=== PATIENT | male | born 1930 | race Caucasian/White ===

== ENCOUNTER 2016-09-22 11:12 | Inpatient (IN) ==
[2016-09-22] MEDS ORDERED: ATROPINE SULFATE PFS IVP PRN (11:36)
[2016-09-22] MEDS ORDERED: VISTARIL INJ IM PRN (11:36)
[2016-09-22] MEDS ORDERED: NITROSTAT SL PRN (11:36)
[2016-09-22] MEDS ORDERED: MORPHINE 4 MG/ML SYRINGE IVP PRN (11:36)
[2016-09-22] MEDS ORDERED: TYLENOL PO PRN (11:36)
[2016-09-22] MEDS ORDERED: NON-FORMULARY MEDICATION (Cetirizine Hcl [Zyrtec] 10 MG) PO PRN ×22 (11:48)
[2016-09-22 11:57] VITALS: BMI 3854.8
[2016-09-22] MEDS ORDERED: ZYRTEC PO PRN (12:27)
[2016-09-22 12:34] LABS: BASOPHILS % (AUTO) 0.4 % (0.0-3.0); EOSINOPHILS # (AUTO) 0.2 K/ul (0.0-0.7); EOSINOPHILS % (AUTO) 3.2 % (0.0-7.0); HEMATOCRIT 38.6 % (42.0-52.0); HEMOGLOBIN 13.4 g/dl (14.0-18.0); IMMATURE GRANULOCYTE % (AUTO) 0.3 % (0.0-5.0); LYMPHOCYTES # (AUTO) 2.6 K/uL (0.60-3.4); LYMPHOCYTES % (AUTO) 35.6 (10.0-50.0); MEAN CORPUSCULAR HEMOGLOBIN 29.3 pg (27.0-31.0); MEAN CORPUSCULAR HGB CONC 34.7 (31.8-35.4); MEAN CORPUSCULAR VOLUME 84.5 fl (80.0-94.0); MONOCYTES # (AUTO) 0.6 K/uL (0.4-2.0); MONOCYTES % (AUTO) 8.7 (0-10); NEUTROPHILS # (AUTO) 3.7 K/ul (2.0-6.9); NEUTROPHILS % (AUTO) 51.8; PLATELET COUNT 198 10^3/uL (140-440); RED BLOOD COUNT 4.57 10^6/ul (4.70-6.10); WHITE BLOOD COUNT 7.16 K/ul (4.2-10.2)
[2016-09-22 12:52] LABS: ALANINE AMINOTRANSFERASE 19 U/L (12-78); ALBUMIN/GLOBULIN RATIO 1.21; ALKALINE PHOSPHATASE 60 U/L (56-119); ANION GAP 12.3; ASPARTATE AMINO TRANSFERASE 17 U/L (15-37); BILIRUBIN,TOTAL 1.19 mg/dL (0.00-1.20); BLOOD UREA NITROGEN 20 mg/dL (7-18); BUN/CREATININE RATIO 18.69; CALCIUM 9.7 mg/dL (8.2-10.2); CARBON DIOXIDE 24 mmol/L (23-31); CHLORIDE 106 mmol/L (98-107); CREATINE KINASE 73 U/L; CREATININE 1.07 mg/dL (0.60-1.10); GLUCOSE 152 mg/dL (82-115); MYOGLOBIN 44 ng/ml; POTASSIUM 4.3 mmol/L (3.5-5.1); SODIUM 138 mmol/L (136-145); TOTAL PROTEIN 7.3 g/dL (5.8-8.1)
--- NOTE | 2016-09-22 15:17 | DI ---
EXAM: Chest one view, frontal view only. HISTORY: Chronic obstructive pulmonary disease. COMPARISON: 02/14/2012. FINDINGS: Heart size is at the upper limits normal. Atherosclerotic calcifications are present. T here is mild haziness at both lung bases. Upper lungs are clear. No large pleural effusion or pneu mothorax identified. Osseous structures are intact. IMPRESSION: Mild bibasilar atelectasis.
--- NOTE | 2016-09-22 15:41 | US ---
EXAM: Ultrasound bilateral carotid duplex HISTORY: Mental status changes and memory loss COMPARISON: MRI brain same day TECHNIQUE: Sonographic and color Doppler evaluation of the carotids were performed. FINDINGS: The right carotid is patent and tortuous in appearance with scattered moderate atherosclerotic plaqu e visualized. Ultrasound demonstrates atherosclerotic disease. Suggestive of approximately 66% narr owing. The right ICA peak systolic velocity measures 80 cm/sec which is normal. The ICA / CCA peak systolic velocity ratio is 1.4 and ICA end-diastolic velocity is 20 cm/sec. The left carotid is mildly tortuous in appearance with scattered atherosclerotic plaque visualized. The left ICA peak systolic velocity measures 70 cm/sec which is normal. The left ICA / CCA peak systolic velocity ratio is 1.0 and ICA end-diastolic velocity is 20 cm/sec. Vertebral arteries demonstrate antegrade flow bilaterally. IMPRESSION: Right ICA atherosclerotic disease with sonographic evaluation demonstrating approximately 66% narrow ing with no elevated Doppler flow to suggest hemodynamically significant stenosis. Left ICA with atherosclerotic disease and no sonographic or Doppler evidence of stenosis.
--- NOTE | 2016-09-22 16:17 | MRI ---
EXAM: Brain MRI with and without contrast. HISTORY: Mental status change. COMPARISON: Head CT 03/29/2069 carotid artery duplex ultrasound 09/22/2016. TECHNIQUE: Multiplanar, multisequence MR images were acquired of the brain before and after adminis tration of intravenous contrast. FINDINGS: The midline structures are central and the craniocervical junction is unremarkable. The ventricles are normal in size. There is mild widening of the subarachnoid space around both frontal lobes at the convexity. There is mild and moderate widening of some sulci and these findings are c ompatible with mild diffuse cerebral volume loss. The brain parenchyma has a small acute infarct with diffusion restriction and bright T2 signal in th e anteromedial right thalamus. Small T2 hyperintensities are present in the supratentorial white ma tter, left thalamus and kandis consistent with moderate leukoencephalopathy. There is a chronic lacuna in the right anterior external capsule and extensive dilated perivascular spaces are present in bot h basal ganglia. There is no abnormal dark gradient echo signal. After administration of gadoliniu m, no enhancing lesions are identified. The corpus callosum is normal in size and configuration. T he pituitary gland is normal in size and has homogeneous contrast enhancement. The infundibulum is midline. There are no intraorbital masses. There has been previous lens surgery bilaterally. Paranasal sinuses, middle ears and the mastoid air cells are unremarkable. No abnormal contrast enh ancement is present in the internal auditory canals or labyrinthine structures. Flow voids are present in the major intracranial arteries. There is dolichoectasia of the cavernous segments of both internal carotid arteries. Dural venous sinuses are patent. IMPRESSION: 1. Small acute right thalamic infarct. 2. Mild diffuse cerebral volume loss and moderate chronic ischemic small vessel disease. 3. Chronic lacuna right external capsule. Critical results called to [facility]ay nurse at 1608 hours.
[2016-09-22 16:49] LABS: ADD URINE MICROSCOPIC NO; BILIRUBIN,URINE Negative (NEGATIVE); KETONES,URINE Negative (NEGATIVE); LEUKOCYTE ESTERASE ,URINE Negative (NEGATIVE); NITRITE,URINE Negative (NEGATIVE); PROTEIN,URINE Negative (NEGATIVE); URINE, BLOOD Negative (NEGATIVE)
[2016-09-22] MEDS: LOVENOX SUBCUT SCH ×2 (16:49→20:51)
[2016-09-22] MEDS: GLUCOPHAGE PO SCH ×2 (17:03→17:20)
[2016-09-22 20:29] LABS: CREATINE KINASE 65 U/L; MYOGLOBIN 52 ng/ml
[2016-09-22] MEDS: LOPRESSOR PO SCH (20:50)
[2016-09-22] MEDS: PROCARDIA XL PO SCH (20:50)
[2016-09-22] MEDS ORDERED: NON-FORMULARY MEDICATION (Metoprolol Tartrate [Metoprolol Tartrate] 100 MG) PO SCH (21:00)
[2016-09-23 07:30] LABS: BASOPHILS % (AUTO) 0.6 % (0.0-3.0); EOSINOPHILS # (AUTO) 0.3 K/ul (0.0-0.7); EOSINOPHILS % (AUTO) 4.3 % (0.0-7.0); HEMATOCRIT 37.3 % (42.0-52.0); IMMATURE GRANULOCYTE % (AUTO) 0.2 % (0.0-5.0); LYMPHOCYTES # (AUTO) 2.6 K/uL (0.60-3.4); MEAN CORPUSCULAR HEMOGLOBIN 29.3 pg (27.0-31.0); MEAN CORPUSCULAR HGB CONC 34.9 (31.8-35.4); MEAN CORPUSCULAR VOLUME 84.2 fl (80.0-94.0); MONOCYTES # (AUTO) 0.6 K/uL (0.4-2.0); MONOCYTES % (AUTO) 8.8 (0-10); NEUTROPHILS # (AUTO) 3.1 K/ul (2.0-6.9); NEUTROPHILS % (AUTO) 47.1; PLATELET COUNT 177 10^3/uL (140-440); RED BLOOD COUNT 4.43 10^6/ul (4.70-6.10); WHITE BLOOD COUNT 6.56 K/ul (4.2-10.2)
[2016-09-23 08:13] LABS: ALBUMIN 3.6 g/dL (3.4-5.0); ALBUMIN/GLOBULIN RATIO 1.29; ANION GAP 12.8; BILIRUBIN,TOTAL 1.3 mg/dL (0.00-1.20); BUN/CREATININE RATIO 14.85; CALCIUM 9.2 mg/dL (8.2-10.2); CREATININE 1.01 mg/dL (0.60-1.10); POTASSIUM 3.8 mmol/L (3.5-5.1); TOTAL PROTEIN 6.4 g/dL (5.8-8.1)
[2016-09-23] MEDS: GLUCOPHAGE PO SCH ×2 (08:15→17:42)
[2016-09-23] MEDS: ASPIRIN EC PO SCH (08:20)
[2016-09-23] MEDS ORDERED: NON-FORMULARY MEDICATION (Losartan Potassium [Cozaar] 100 MG) PO SCH ×22 (09:00)
[2016-09-23] MEDS ORDERED: NON-FORMULARY MEDICATION (Multivitamin [Multi-Vitamin Daily] 1 EACH) PO SCH ×22 (09:00)
[2016-09-23] MEDS: COZAAR PO SCH (09:25)
[2016-09-23] MEDS: PLAVIX PO SCH (09:25)
[2016-09-23] MEDS: PROCARDIA XL PO SCH ×2 (09:26→20:15)
[2016-09-23] MEDS: LOPRESSOR PO SCH ×2 (09:26→20:14)
[2016-09-23] MEDS: MULTIVITAMIN PO SCH (09:26)
[2016-09-23] MEDS: PROSCAR PO SCH (09:26)
[2016-09-23] MEDS: ZOCOR PO SCH (09:27)
[2016-09-23] MEDS: LOVENOX SUBCUT SCH ×2 (09:30→20:16)
[2016-09-23] MEDS: LINACLOTIDE 290 MG PO SCH ×2 (09:44→15:37)
[2016-09-24 07:26] LABS: BASOPHILS # (AUTO) 0.1 K/uL (0-0.2); BASOPHILS % (AUTO) 0.8 % (0.0-3.0); EOSINOPHILS # (AUTO) 0.3 K/ul (0.0-0.7); EOSINOPHILS % (AUTO) 4.3 % (0.0-7.0); HEMATOCRIT 37.5 % (42.0-52.0); IMMATURE GRANULOCYTE % (AUTO) 0.3 % (0.0-5.0); LYMPHOCYTES # (AUTO) 2.8 K/uL (0.60-3.4); LYMPHOCYTES % (AUTO) 42.8 (10.0-50.0); MEAN CORPUSCULAR HEMOGLOBIN 29.1 pg (27.0-31.0); MEAN CORPUSCULAR HGB CONC 34.7 (31.8-35.4); MEAN CORPUSCULAR VOLUME 83.9 fl (80.0-94.0); MONOCYTES # (AUTO) 0.7 K/uL (0.4-2.0); MONOCYTES % (AUTO) 10.1 (0-10); NEUTROPHILS # (AUTO) 2.7 K/ul (2.0-6.9); NEUTROPHILS % (AUTO) 41.7; PLATELET COUNT 180 10^3/uL (140-440); RED BLOOD COUNT 4.47 10^6/ul (4.70-6.10); WHITE BLOOD COUNT 6.54 K/ul (4.2-10.2)
[2016-09-24 08:05] LABS: ALBUMIN 3.6 g/dL (3.4-5.0); ALBUMIN/GLOBULIN RATIO 1.33; ANION GAP 12.7; BILIRUBIN,TOTAL 1.22 mg/dL (0.00-1.20); BUN/CREATININE RATIO 16.51; CREATININE 1.09 mg/dL (0.60-1.10); POTASSIUM 3.7 mmol/L (3.5-5.1); TOTAL PROTEIN 6.3 g/dL (5.8-8.1)
[2016-09-24] MEDS: PLAVIX PO SCH (08:54)
[2016-09-24] MEDS: MULTIVITAMIN PO SCH (08:54)
[2016-09-24] MEDS: ASPIRIN EC PO SCH (08:54)
[2016-09-24] MEDS: ZOCOR PO SCH (08:55)
[2016-09-24] MEDS: GLUCOPHAGE PO SCH ×2 (08:56→17:05)
[2016-09-24] MEDS: COZAAR PO SCH (08:57)
[2016-09-24] MEDS: PROSCAR PO SCH (08:57)
[2016-09-24] MEDS: LOPRESSOR PO SCH ×2 (08:58→20:01)
[2016-09-24] MEDS: PROCARDIA XL PO SCH ×2 (08:58→20:01)
[2016-09-24] MEDS: LOVENOX SUBCUT SCH ×2 (09:02→20:01)
[2016-09-24] MEDS: LINACLOTIDE 290 MG PO SCH ×2 (09:05→11:30)
[2016-09-25 05:05] LABS: BASOPHILS % (AUTO) 0.5 % (0.0-3.0); EOSINOPHILS # (AUTO) 0.3 K/ul (0.0-0.7); EOSINOPHILS % (AUTO) 4.7 % (0.0-7.0); HEMATOCRIT 37.8 % (42.0-52.0); HEMOGLOBIN 13.2 g/dl (14.0-18.0); IMMATURE GRANULOCYTE % (AUTO) 0.3 % (0.0-5.0); LYMPHOCYTES # (AUTO) 2.8 K/uL (0.60-3.4); LYMPHOCYTES % (AUTO) 43.7 (10.0-50.0); MEAN CORPUSCULAR HEMOGLOBIN 29.3 pg (27.0-31.0); MEAN CORPUSCULAR HGB CONC 34.9 (31.8-35.4); MEAN CORPUSCULAR VOLUME 83.8 fl (80.0-94.0); MONOCYTES # (AUTO) 0.6 K/uL (0.4-2.0); MONOCYTES % (AUTO) 9.5 (0-10); NEUTROPHILS # (AUTO) 2.6 K/ul (2.0-6.9); NEUTROPHILS % (AUTO) 41.3; PLATELET COUNT 177 10^3/uL (140-440); RED BLOOD COUNT 4.51 10^6/ul (4.70-6.10); WHITE BLOOD COUNT 6.34 K/ul (4.2-10.2)
[2016-09-25 05:27] LABS: ALBUMIN 3.6 g/dL (3.4-5.0); ALBUMIN/GLOBULIN RATIO 1.33; BILIRUBIN,TOTAL 1.12 mg/dL (0.00-1.20); BUN/CREATININE RATIO 16.98; CALCIUM 9.1 mg/dL (8.2-10.2); CREATININE 1.06 mg/dL (0.60-1.10); TOTAL PROTEIN 6.3 g/dL (5.8-8.1)
--- NOTE | 2016-09-25 08:28 | ECHO2D ---
Date of Exam: 09/23/16 Ordering Physician: ABIMAEL LINO Reason for Echo: HYPERTENSION, CHANGE IN MENTAL STATUS, ACUTE STROKE M-Mode Normal Adult Results LV Dimensions Normal Adult Results AoV Opening excursions >1.6 >1.6 LVEDD-base- 3.5-5.8 5.1 Ao root dimensions 2.0-3.7 3.8 LVESD-base- 3.1-4.6 L. Atrium dimensions 1.9-3.8 4.1 Post. Wall thickness 0.8-1.1 1.2 IV septum (thickness) 0.7-1.2 1.2 Post. Wall excursion 0.72-1.3 NORMAL Septal motion NORMAL Systolic motion R. Ventricular cavity 1.5-2.0 NORMAL LVEF 60% 53% Paradoxical septal wall motion NORMAL 2-D : 2-D M Mode Echocardiogram was performed using apical four chamber and left parasternal long and short axis views. Mitral, tricuspid and aortic valves appear to be normal. Contractility of the left ventricle seems to be normal, so is the cavity size. MILDLY ENLARGED LEFT ATRIAL CAVITY. Aortic root appears to be normal. There is no pericardial effusion. There is no thrombus noted in the left ventricular or left aortic cavity. No mitral valve prolapse noted. M-MODE: MV: NORMAL AV: NORMAL TV: NORMAL PV: CHAMBER SIZE: ENLARGED LEFT ATRIAL CAVITY WALL MOTION: NORMAL PERICARDIUM: NORMAL INTERPRETATION: 1. BORDERLINE LEFT VENTRICULAR HYPERTROPHY WITH ENLARGED LEFT ATRIAL CAVITY ( 4.1 CM) 2. NORMAL VALVES 3. NORMAL LEFT VENTRICULAR CONTRACTILITY MTDD
[2016-09-25] MEDS: PROCARDIA XL PO SCH ×2 (08:55→20:08)
[2016-09-25] MEDS: ASPIRIN EC PO SCH (08:56)
[2016-09-25] MEDS: PROSCAR PO SCH (08:56)
[2016-09-25] MEDS: LINACLOTIDE 290 MG PO SCH (08:56)
[2016-09-25] MEDS: COZAAR PO SCH (08:56)
[2016-09-25] MEDS: ZOCOR PO SCH (08:56)
[2016-09-25] MEDS: MULTIVITAMIN PO SCH (08:56)
[2016-09-25] MEDS: PLAVIX PO SCH (08:56)
[2016-09-25] MEDS: GLUCOPHAGE PO SCH ×2 (08:56→17:28)
[2016-09-25] MEDS: LOVENOX SUBCUT SCH ×2 (08:57→20:09)
[2016-09-25] MEDS: LOPRESSOR PO SCH ×2 (08:57→20:08)
--- NOTE | 2016-09-25 09:58 | PN ---
DATE OF SERVICE: 09/24/16 SUBJECTIVE: The patient is a 85 year old white male hospitalized withe change in the mental status. The patient has more less a picture of like acute onset of Alzheimer's disease. Which is typical of thalamic stroke. The patient is up and about and has no problems swallowing and walking. He is forgetful. I asked him about what happen yesterday about the discussion that took place about his tests and all that and he couldn't answer any questions. REVIEW OF SYSTEMS: CONSTITUTIONAL: No night sweats. No fatigue, malaise, lethargy. No fever or chills. Forgetfulness. Confusion. HEENT: Eyes: No visual changes. No eye pain. No eye discharge. ENT: No runny nose. No epistaxis. No sinus pain. No sore throat. No odynophagia. No congestion. RESPIRATORY: No cough, no congestion. No hemoptysis. CARDIOVASCULAR: No angina symptoms. No CHF symptoms. No atypical chest pain for CAD. No palpitations. No shortness of breath.No PND. No Orthopnea. GASTROINTESTINAL: No abdominal pain. No nausea or vomiting. No diarrhea or constipation. No hematemesis. No hematochezia. GENITOURINARY: No urgency. No frequency. No dysuria. No hematuria. No obstructive symptoms. No discharge. No pain. No significant abnormal bleeding. MUSCULOSKELETAL: No musculoskeletal pain; no joint swelling. NEUROLOGICAL: No headache. No neck pain. No syncope. No seizures. No dizziness. PSYCHIATRIC: Not anxious. No depression. No suicidal thoughts. No homicidal thoughts. SKIN: No rash. No lesions. No wounds. ENDOCRINE: No unexplained weight loss. No weight gain. HEMATOLOGIC/LYMPHATIC: No anemia. No purpura. No petechiae. No prolonged or excessive bleeding. No palpable lymph nodes. PHYSICAL EXAMINATION: GENERAL: The patient is oriented to person but not to date, time or year. VITAL SIGNS: Temperature 97.5, pulse 69, respiratory rate 17, Blood pressure 128/71 and pulse ox 97%. HEENT: Head normocephalic, atraumatic. Eyes: Extraocular muscles are intact. Pupils are equal, round and reactive to light and accommodation. Ears: No lesions. Nose appeared normal. Throat: No exudate or erythema. NECK: Supple. No JVD, no carotid bruit. No lymphadenopathy or thyromegaly. LUNGS:Decreased breath sounds but clear to auscultation. Percussion note normal. Chest symmetrical. HEART: S1, S2, no S3. No murmurs. No cyanosis or clubbing. No ascites. Pulses: Dorsalis pedis and posterior tibial pulses +1 to +2 both sides. ABDOMEN: Soft. Nontender. Bowel sounds active. No CVA tenderness. No mass felt. EXTREMITIES: No edema. Full range of motion of all extremities, equal. NEUROLOGIC: No focal deficit. Cranial nerves II through XII are grossly intact. No headache, no double vision or headache. SKIN: Not dry. Intact. Turgor - normal. LYMPHATIC: No palpable lymph nodes/no lymphedema. MUSCULOSKELETAL: Normal joints with no swelling. Muscle tone is normal. LABS: Hgb 13, hct 37, WBC 6,500 normal differential, creatinine 1, BUN 18, potassium 3.7. ASSESSMENT: 1. Thalamic stroke, stable 2. Hypertension 3. Dyslipidemia 4. Diabetes Mellitus PLAN: 1. Continue Lovenox 2. Continue Plavix 3. Again discussed with him the long per plan, again explained about Thalamic stroke and symptoms. 4. Echocardiogram was done yesterday which showed normal LV contractility and LV size, No thrombus or thrombi noted. 5. So far the patient's rhythm shows sinus, no atrial fibrillation noted. 6. Carotid scan less than 60%, 50-70% atherosclerotic disease CONDITION: Stable TIME SPENT: More than 30 minutes. Plan and coordination of the patient's care discussed in the presence of nurse. ERICA
--- NOTE | 2016-09-25 10:20 | PN ---
DATE OF SERVICE: 09/23/16 SUBJECTIVE: The patient is a 85 year old white male hospitalized with change in the mental status with dementia type of picture likely related to acute thalamic stroke which is small. The patient is up and about walking around with no problem, swallowing. He had good appetite. I asked him this morning and he said Daughter was present in the morning. I asked him does he remember anything that happened yesterday and does he remember when I visited him and he yes that he saw him in the hallway, in fact I had seen him in the room he is now and had twice one during the office visit when I admitted him and both of the daughters were with him and after that I came by late in the evening to talk to him about MRI reports and what kind of condition he is going through. I asked the patient that any of the tests were done yesterday and he said no, did not know what he has had stroke in spite of the fact that he was told by the nursing staff and by me yesterday. REVIEW OF SYSTEMS: CONSTITUTIONAL: No night sweats. No fatigue, malaise, lethargy. No fever or chills. Forgetfulness and confusion and disorientation to date and time. HEENT: Eyes: No visual changes. No eye pain. No eye discharge. ENT: No runny nose. No epistaxis. No sinus pain. No sore throat. No odynophagia. No congestion. RESPIRATORY: No cough, no congestion. No hemoptysis. CARDIOVASCULAR: No angina symptoms. No CHF symptoms. No atypical chest pain for CAD. No palpitations. No shortness of breath. GASTROINTESTINAL: No abdominal pain. No nausea or vomiting. No diarrhea or constipation. No hematemesis. No hematochezia. GENITOURINARY: No urgency. No frequency. No dysuria. No hematuria. No obstructive symptoms. No discharge. No pain. No significant abnormal bleeding. MUSCULOSKELETAL: No musculoskeletal pain; no joint swelling. NEUROLOGICAL: No headache. No neck pain. No syncope. No seizures. No dizziness. PSYCHIATRIC: Not anxious. No depression. No suicidal thoughts. No homicidal thoughts. SKIN: No rash. No lesions. No wounds. ENDOCRINE: No unexplained weight loss. No weight gain. HEMATOLOGIC/LYMPHATIC: No anemia. No purpura. No petechiae. No prolonged or excessive bleeding. No palpable lymph nodes. PHYSICAL EXAMINATION: GENERAL: The patient is oriented to person. VITAL SIGNS: Temperature 97.9, pulse 73, respiratory rate 16, blood pressure 170/90 the repeat blood pressure showed 148/84 and pulse ox 96% HEENT: Head normocephalic, atraumatic. Eyes: Extraocular muscles are intact. Pupils are equal, round and reactive to light and accommodation. Ears: No lesions. Nose appeared normal. Throat: No exudate or erythema. NECK: Supple. No JVD, no carotid bruit. No lymphadenopathy or thyromegaly. LUNGS: Decreased breath sounds but clear to auscultation. Percussion note normal. Chest symmetrical. HEART: S1, S2, no S3. No murmurs. No cyanosis or clubbing. No ascites. Pulses: Dorsalis pedis and posterior tibial pulses +1 to +2 both sides. ABDOMEN: Soft. Nontender. Bowel sounds active. No CVA tenderness. No mass felt. EXTREMITIES: No edema. Full range of motion of all extremities, equal. NEUROLOGIC: No focal deficit. Cranial nerves II through XII are grossly intact. No headache, no double vision or headache. SKIN: Not dry. Intact. Turgor - normal. LYMPHATIC: No palpable lymph nodes/no lymphedema. MUSCULOSKELETAL: Normal joints with no swelling. Muscle tone is normal. LABS: Hgb 13, hct 37, WBC 6,500 normal differential, creatinine 1, BUN 15, potassium 3.8, glucose 154, TSH normal. MRI report discussed with the patient and the daughter ASSESSMENT: 1. Acute thalamic infarct, small 2. Hypertension 3. Dyslipidemia 4. Change in the mental status, likely from #1 PLAN: 1. Lovenox full dose 80-100mg daily 2. Continue Plavix for now Patient's prognosis is guarded. TIME SPENT: More than 30 minutes. Plan and coordination of the patient's care discussed in the presence of nurse. ERICA
--- NOTE | 2016-09-25 14:56 | HP ---
DATE OF SERVICE: 09/22/16 REASON FOR HOSPITALIZATION/HISTORY OF PRESENT ILLNESS: For past 10 days patient getting lost and calling daughter for help. Sudden onset of mental status changes. very forgetful, mixed up but daughters have noticed a big change. Up and about using cane/walker. Still driving. NO symptoms of Congestive heart failure or coronary artery disease. REVIEW OF SYSTEMS: CONSTITUTIONAL: No fever, no fatigue. HEENT: No sinus drainage, no sore throat. RESPIRATORY: No cough, no congestion. CARDIOVASCULAR: No atypical chest pain for coronary artery disease. No angina , CHF symptoms, palpitations or shortness of breath. GASTROINTESTINAL: No melena or abdominal pain. No GERD. GENITOURINARY: No hematuria, no prostatism, no polyuria. ORCHARD PRUNER: No blackout, no dizziness, no headache, no double vision. MUSCULOSKELETAL: No osteoarthritis pain, no joint swelling. ENDOCRINE: No weight loss, no weight gain. SKIN: Not dry, no rash. PSYCHIATRIC: Not anxious, no depression, no suicidal thoughts, no homicidal thoughts. SOCIAL HISTORY: Marital Status: . Has 4 children. Alcohol Usage: Occasional beer. Tobacco Usage: No. Family History: Father age 79 CVA, Mother age 78 [place]. Three sisters. MEDICATIONS: Simvastatin 40mg Po daily Metoprolol 100mg PO twice a day Cozaar 100mg PO daily Finasteride 5mg PO daily Clopidogrel 75mg PO daily Metformin 500mg PO twice a day Zyrtec 10mg Po daily PRN Multivitamin 1 each PO daily Nifedipine ER 30mg PO twice a day Linzess 290 mcg PO daily ALLERGIES: No known drug allergies SURGICAL HISTORY: Tonsils Skin Cancer MEDICAL HISTORY: Diabetes Mellitus type 2 Hypertension Coronary artery disease DJD spine Cancer prostate TIA Cholecystectomy CAD calcification by CT scan Vocal cord dysfunction PHYSICAL EXAMINATION: V/S: Pulse 70, blood pressure 142/80, pulse ox 98%, weight 199.8, height 6'0 with BMI of 27%. GENERAL APPEARANCE: Oriented times three. HEENT: Normal. NECK: No JVP, no bruits. RESPIRATORY: Lungs are clear. CARDIOVASCULAR: S1, S2, no S3, no murmurs. No cyanosis, clubbing. No ascites. GI/ABDOMEN: No tenderness. Bowel sounds are active. EXTREMITIES: edema, pulses +1, equal. ORCHARD PRUNER: Deep tendon reflexes, sensory, motor and gait all normal. RECTAL:PELVIC: foot care discussed/PROSTATE: -(2.5) Dr. Teixeira, Coloscopy screening 06/10 Dr. Edwards no repeat necessary . LABS: Potassium 4.3, creatinine 1, BUN 20, CK troponin negative, Troponin negative, Liver profile normal, hgb 13.4, hct 38, WBC 7,000 normal differential. The patient chest x-ray atelectasis. MRI of the brain with contrast showed small acute thalamic infarct. Carotid scan less than 50-60% of carotid occlusive disease. ASSESSMENT: 1. Change in mental status, rule out CVA/Dementia 2. History of nasal bone fracture 3. Diabetes mellitus, type 2 4. Hypertension 5. Coronary artery disease 6. DJD spine 7. Met Syndrome 8. Cancer of the prostate 9. Transient ischemia attack 10. Coronary artery disease calcification by CT scan 11. Cholecystectomy 12. Vocal cord dysfunction. PLAN: 1. The patient was started on Lovenox 60mg and another will be given tomorrow depending upon what the patient's condition is. The patient is already on Plavix. 2. Admits regular 3. Routine Telemetry 4. CBC, CMP, LIPID, TSH and B12 today 5. Diet 2,200 calorie ADA diet 6. Continue all medications 7. Carotid scan today 8. MRI of brain with contrast today 9. Urine analysis 10. Telemetry 11. Mini mental status exam by nursing staff. The patient's both daughter that is Stanley were called about the patient's diagnosis that was Thalamic infarct that he has suffered likely cause of this acute change in the mental status with confusion and forgetfulness could be related to that. The patient was up and about with no neurologist deficit. Moving all his extremities and also no problems swallowing, no problem with vision, No ataxia. CONDITION: Stable PROGNOSIS: Guarded TIME SPENT: More than 70 minutes. MTDD
[2016-09-26 05:00] LABS: BASOPHILS % (AUTO) 0.4 % (0.0-3.0); EOSINOPHILS # (AUTO) 0.4 K/ul (0.0-0.7); HEMATOCRIT 37.6 % (42.0-52.0); IMMATURE GRANULOCYTE % (AUTO) 0.3 % (0.0-5.0); LYMPHOCYTES # (AUTO) 3.8 K/uL (0.60-3.4); MEAN CORPUSCULAR HEMOGLOBIN 29.3 pg (27.0-31.0); MEAN CORPUSCULAR HGB CONC 34.6 (31.8-35.4); MEAN CORPUSCULAR VOLUME 84.9 fl (80.0-94.0); MONOCYTES # (AUTO) 0.6 K/uL (0.4-2.0); NEUTROPHILS # (AUTO) 2.6 K/ul (2.0-6.9); NEUTROPHILS % (AUTO) 35.3; PLATELET COUNT 193 10^3/uL (140-440); RED BLOOD COUNT 4.43 10^6/ul (4.70-6.10); WHITE BLOOD COUNT 7.47 K/ul (4.2-10.2)
[2016-09-26 05:35] LABS: ALBUMIN 3.5 g/dL (3.4-5.0); ALBUMIN/GLOBULIN RATIO 1.17; ANION GAP 12.1; BILIRUBIN,TOTAL 1.1 mg/dL (0.00-1.20); BUN/CREATININE RATIO 19.09; CALCIUM 9.1 mg/dL (8.2-10.2); CREATININE 1.1 mg/dL (0.60-1.10); POTASSIUM 4.1 mmol/L (3.5-5.1); TOTAL PROTEIN 6.5 g/dL (5.8-8.1)
[2016-09-26] MEDS: PROCARDIA XL PO SCH ×2 (09:25→21:14)
[2016-09-26] MEDS: LINACLOTIDE 290 MG PO SCH (09:25)
[2016-09-26] MEDS: ASPIRIN EC PO SCH (09:25)
[2016-09-26] MEDS: GLUCOPHAGE PO SCH ×2 (09:25→17:01)
[2016-09-26] MEDS: LOVENOX SUBCUT SCH ×2 (09:26→21:14)
[2016-09-26] MEDS: ZOCOR PO SCH (09:26)
[2016-09-26] MEDS: PLAVIX PO SCH (09:26)
[2016-09-26] MEDS: LOPRESSOR PO SCH ×2 (09:26→21:14)
[2016-09-26] MEDS: PROSCAR PO SCH (09:26)
[2016-09-26] MEDS: COZAAR PO SCH (09:26)
[2016-09-26] MEDS: MULTIVITAMIN PO SCH (09:27)
--- NOTE | 2016-09-26 09:58 | RS.OTINEVL ---
Subjective - Patient information Date of Evaluation: 09/26/16 Date of Arrival on Unit: 09/22/16 Admitted From:: Home Usual Living Arrangement: Alone Living Arrangement Comments: lives with self Home Environment: House, Stairs (few) Medical History: Hypertension, CVA/TIA, Dementia Subjective Information/ Patient Comments:: "I had another TIA. I had the other one a few years ago." "I guess one of my kids was with me when I got here. " - Level of function Prior to this admission, the patient could do the following:: Independent Selfcare, Independent ADL's, Independent Ambulation, Perform [employer]/ Cooking, Drive, Participated in Social Activities Outside home Abilities prior to this admission: Pt was driving and [place]. Current Equipment Used at Home: none Pain Assessment - Pain Pain Score: 0 Interventions - Objective Patient Orientation: Person, Place Current Interventions: IV's, Telemetry Observation: Patient covers up his deficits. Patient has more cognitive deficits then physical at time of evaluation. Interventions - ROM Right Upper Extremity AROM: WFL's Left Upper Extremity AROM: WFL's - Strength Right Upper Extremity Strength: Mild Weakness Left Upper Extremity Strength: Normal - Sensation Right Upper Extremity Sensation: Intact/Normal Left Upper Extremity Sensation: Intact/Normal Coordination - Tests Bilateral Comments: BUE shoulder flexion symmetrical. Balance - Sitting Balance Static Sitting Balance: Good Dynamic Sitting Balance: Good - Standing Balance Static Standing Balance: Good Dynamic Standing Balance: Good ADL Skills - Self Feeding Self Feeding: Independent - Grooming Grooming: Independent - Bathing Bathing UE: Independent Bathing LE: Independent - Dressing Dressing UE: Independent Dressing LE: Independent - Toilet Management Toileting Management: Independent Functional Mobility - Bed Mobility Rolling R/L: Independent Scooting: Independent Supine to Sit: Independent Sit to Supine: Independent - Transfers Sit to Stand: Independent Stand to Sit: Independent Stand Pivot Transfers: Independent Additional Treatment Performed - Time with patient Total treatment time: 20 Activities Patient Interests:: Reading Books/Magazines Patient Education Patient Education: Education of diagnosis Teaching Recipient: Patient Teaching Methods: Discussion Assessment Further Therapy Indicated?: No Comments: Evaluation only today. Plan Anticipated Discharge Destination: Home
--- NOTE | 2016-09-26 14:47 | RS.COGEVAL ---
Subjective Number of treatment sessions: 1 Date of Evaluation: 09/26/16 Date of Onset/Injury/Change in Status: 09/22/16 (Mental status change) Treatment Diagnosis: mental status change, TIA Prior Level of Function.....Patient was independent with: ADL's, Self Care, Work /Vocation, Caregiving, Ambulation/Mobility, Community Integration/Access (Pt lived alone and was independent, including driving and medication management) Current Level of Function: SLIP COVER SEAMSTRESS noted deficits with immediate, delayed, and short -term memory, auditory processing, problem solving, thought organization, and reasoning skills, which can impact independence in the home environment. Current Diet: Regular diet texture with thin liquids. Current Subjective/complaints:: Pt states he has no concerns and does not feel he has any changes with mental or physical status. Daughter stated concerns with mental status change. Daughter also verbalized she does not want patient to return home. Medical History Comments:: DM, HTN, CAD, TIA, vocal cord dysfunction. Hx Home Medications: Refer to current medications for complete list. Patient's Goals: Patient wants to drive again. Daughter wants patient to return to safest and least restrictive environment. Information History:: Pt lived at home alone and was independent with driving, medication and financial sales representative, ADL care, home care, and cooking and shopping. Pt completed medical appointments independently, however had daughters for caregiver support as needed. Pt has a hx of stroke in 2006. Informal Assessment:: SLIP COVER SEAMSTRESS utilized the RIPA-2 to assess cognitive skills. SLIP COVER SEAMSTRESS noted severe-moderate deficits with memory recall, specifically details with short-term information; moderate deficits with auditory processsing, showing delays with verbal responses and requring verbal repetition; moderate deficits with thought organization specifically divergent thinking; and moderate deficits with reasoning skills, demonstrating dependence on others for problem solving. Formal/Objective Assessment:: SLIP COVER SEAMSTRESS to complete formal functional safety assessment at next session. Summary and Recommendations:: SLIP COVER SEAMSTRESS recommendations cognitive therapy for memory, executive functioning, problem solving and concrete/abstract reasoning skills. Functional Reporting G Codes: Current CK goal CJ Severity Impairment Rationale: Pt currently demonstrating moderate delays in cognitive deficits, with severe deficits in memory skills. Short Term Goals Problem: Memory recall Goal #1: Pt to recall 3/5 daily events with memory aids Goal to be met by: 10/03/16 Problem: Problem solving Goal #2: Pt to verbalize problem solving skills for ADLs Goal to be met by: 10/03/16 Problem: Reasoning skills Goal #3: Pt to complete reasoning tasks with 80% accuracy. Goal to be met by: 10/03/16 Problem: Executive functioning Goal #4: Pt to utilize 3/5 sequential thoughts for organization Goal to be met by: 10/03/16 Mcfp Goals Problem: Cognitive skills Goal #1: Pt to improve cognitive skills to 70% for ADLs Problem: Cognitive skills Goal #2: Pt to improve cognitive skills to 70% for home management. Plan Duration of Treatment: 1 Week Frequency of Treatment: 2x a week Anticipated Discharge Destination: Family undecided at this time.
--- NOTE | 2016-09-26 14:54 | PN ---
DATE OF SERVICE: 09/25/16 SUBJECTIVE: The patient is an 85 year old white male hospitalized with acute change in the mental status. The patient has acute onset of Alzheimer's disease type of clinically picture which is typical of thalamic infarct. The patient is up and about walking and swallowing. The patient still doesn't remember much at all, what happens in near past like yesterday I talked to him about what is going on and what other test he had done and what is his diagnosis all the daughters,all four of them, including Mary and younger daughter they were present along with Elida and Stella. He couldn't answer any questions at all but he knows all the daughter and he knows me so he is oriented to person. Just what happens with thalamic infarct they forget about their self identity and that is what has happened to the patient. The patient is able to drive, again strongly advised not to drive or ride bicycle for at least six months. I told him again that he acute thalamic infarct. The cause of the infarct could be hypertension, I don't think that the patient has embolic phenomenon. The patient doesn't have any atrial fibrillation, carotid occlusive disease which is mild to moderate. REVIEW OF SYSTEMS: CONSTITUTIONAL: No night sweats. No fatigue, malaise, lethargy. No fever or chills. HEENT: Eyes: No visual changes. No eye pain. No eye discharge. ENT: No runny nose. No epistaxis. No sinus pain. No sore throat. No odynophagia. No congestion. RESPIRATORY: No cough, no congestion. No hemoptysis. CARDIOVASCULAR: No angina symptoms. No CHF symptoms. No atypical chest pain for CAD. No palpitations. No shortness of breath. No PND. No Orthopnea. GASTROINTESTINAL: No abdominal pain. No nausea or vomiting. No diarrhea or constipation. No hematemesis. No hematochezia. GENITOURINARY: No urgency. No frequency. No dysuria. No hematuria. No obstructive symptoms. No discharge. No pain. No significant abnormal bleeding. MUSCULOSKELETAL: No musculoskeletal pain; no joint swelling. NEUROLOGICAL: No headache. No neck pain. No syncope. No seizures. No dizziness. PSYCHIATRIC: Not anxious. No depression. No suicidal thoughts. No homicidal thoughts. SKIN: No rash. No lesions. No wounds. ENDOCRINE: No unexplained weight loss. No weight gain. HEMATOLOGIC/LYMPHATIC: No anemia. No purpura. No petechiae. No prolonged or excessive bleeding. No palpable lymph nodes. PHYSICAL EXAMINATION: GENERAL: The patient is oriented to time, place and person. VITAL SIGNS: Temperature 97.4, pulse 73, respiratory rate 13, blood pressure 135/75 and pulse ox 94%. HEENT: Head normocephalic, atraumatic. Eyes: Extraocular muscles are intact. Pupils are equal, round and reactive to light and accommodation. Ears: No lesions. Nose appeared normal. Throat: No exudate or erythema. NECK: Supple. No JVD, no carotid bruit. No lymphadenopathy or thyromegaly. LUNGS: Decreased breath sounds but clear to auscultation. Percussion note normal. Chest symmetrical. HEART: S1, S2, no S3. No murmurs. No cyanosis or clubbing. No ascites. Pulses: Dorsalis pedis and posterior tibial pulses +1 to +2 both sides. ABDOMEN: Soft. Nontender. Bowel sounds active. No CVA tenderness. No mass felt. EXTREMITIES: No edema. Full range of motion of all extremities, equal. NEUROLOGIC: No focal deficit. Cranial nerves II through XII are grossly intact. No headache, no double vision or headache. SKIN: Not dry. Intact. Turgor - normal. LYMPHATIC: No palpable lymph nodes/no lymphedema. MUSCULOSKELETAL: Normal joints with no swelling. Muscle tone is normal. ASSESSMENT: 1. Acute thalamic infarct 2. Hypertension 3. Diabetes Mellitus 4. Dyslipidemia PLAN: 1. Continue Lovenox 2. Continue Plavix 3. The patient will be referred to occupational therapy and speech therapy 4. All the risk factors for stroke discussed with the patient. 5. Advise strongly not to drive for 6 months, will evaluate further 6. Not to ride bicycle. TIME SPENT: More than 30 minutes. Plan and coordination of the patient's care discussed in the presence of nurse. ERICA
--- NOTE | 2016-09-26 15:18 | RS.PTINEVL ---
Subjective - Patient information Date of Evaluation: 09/26/16 Usual Living Arrangement: Alone Medical History Comments:: DM, HTN, CAD, TIA, vocal cord dysfunction. Surgical History: Tonsillectomy Subjective Information/ Patient Comments:: Patient does not remember how he got to the hospital. States his kids must have brought him. He is unable to tell us what was wrong with him physically, for him to come to the hospital. He did say that he had a stroke. - Level of function Prior to this admission, the patient could do the following:: Independent Selfcare, Independent ADL's, Independent Ambulation, Perform Travel Coordinator/ Cooking, Drive, Participated in Social Activities Outside home Current Equipment Used at Home: none Interventions - Objective Patient Orientation: Person, Place Range of Motion - ROM Right Upper Extremity AROM: WFL's Left Upper Extremity AROM: WFL's Right Lower Extremity AROM: WFL's Left Lower Extremity AROM: WFL's Muscle Strength - Muscle Strength Comments:: Right LE slightly weaker, but not with a functional deficit. Left LE 5/5 throughout. Sensation - Sensation Right Lower Extremity Sensation: Intact/Normal Left Lower Extremity Sensation: Intact/Normal Balance - Sitting Balance and Reactions Static Sitting Balance: Good Dynamic Sitting Balance: Good - Standing Balance and Reactions Static Standing Balance: Good Dynamic Standing Balance: Good Functional Mobility - Bed Mobility Supine to Sit: Independent Sit to Supine: Independent - Transfers Sit to Stand: Supervision, 1 person assist Stand to Sit: Supervision, 1 person assist Stand Pivot Transfers: Supervision, 1 person assist - Safety Awareness Safety Awareness: Fair Ambulation - Ambulation Weight Bearing Status: FWB Distance: 150 feet Assistance needed with Ambulation: Supervision Gait Deviations: No Deviations/Normal Factors Affecting Ambulation: Cognitive Status Treatment time - Time with patient Total treatment time: 15 (mins) Assessment - Assessment Further Therapy Indicated?: No Comments: Patient presents to be high functioning with bed mobility, transfers, and ambulation. His main limitation at this time may be short term memory. He will be seen by our Speech Therapist today. Plan Duration of Treatment: One Time Treatment
--- NOTE | 2016-09-26 15:24 | CT ---
EXAM: CT of the head without contrast History: Cerebrovascular accident. Comparison: Head CT 03/29/2016, brain MRI 09/22/2016 Technique: Multiplanar CT images through the head were obtained without the administration of IV co ntrast Findings: The visualized paranasal sinuses and mastoid air cells are clear in general. No acute ca lvarial abnormalities. Intracranially there are atherosclerotic vascular calcifications. Stable atrophy. Periventricular and subcortical white matter hypodensities again noted. Evolving right thalamus lacunar infarction. Impression: 1. No acute intracranial hemorrhage. 2. Atrophy and chronic small vessel ischemic disease. 3. Evolving right thalamic lacunar infarction. Please note that CT is insensitive for the detectio n of acute stroke.
[2016-09-27 04:49] LABS: BASOPHILS % (AUTO) 0.4 % (0.0-3.0); EOSINOPHILS # (AUTO) 0.4 K/ul (0.0-0.7); EOSINOPHILS % (AUTO) 4.5 % (0.0-7.0); HEMATOCRIT 36.9 % (42.0-52.0); HEMOGLOBIN 12.7 g/dl (14.0-18.0); IMMATURE GRANULOCYTE % (AUTO) 0.3 % (0.0-5.0); LYMPHOCYTES # (AUTO) 3.9 K/uL (0.60-3.4); LYMPHOCYTES % (AUTO) 49.6 (10.0-50.0); MEAN CORPUSCULAR HEMOGLOBIN 29.4 pg (27.0-31.0); MEAN CORPUSCULAR HGB CONC 34.4 (31.8-35.4); MEAN CORPUSCULAR VOLUME 85.4 fl (80.0-94.0); MONOCYTES # (AUTO) 0.7 K/uL (0.4-2.0); MONOCYTES % (AUTO) 8.9 (0-10); NEUTROPHILS # (AUTO) 2.8 K/ul (2.0-6.9); NEUTROPHILS % (AUTO) 36.3; PLATELET COUNT 183 10^3/uL (140-440); RED BLOOD COUNT 4.32 10^6/ul (4.70-6.10); WHITE BLOOD COUNT 7.79 K/ul (4.2-10.2)
[2016-09-27 05:18] LABS: ALBUMIN 3.6 g/dL (3.4-5.0); ALBUMIN/GLOBULIN RATIO 1.24; ANION GAP 11.8; BILIRUBIN,TOTAL 1.14 mg/dL (0.00-1.20); BUN/CREATININE RATIO 18.01; CALCIUM 9.1 mg/dL (8.2-10.2); CREATININE 1.11 mg/dL (0.60-1.10); POTASSIUM 3.8 mmol/L (3.5-5.1); TOTAL PROTEIN 6.5 g/dL (5.8-8.1)
[2016-09-27] MEDS: ASPIRIN EC PO SCH (09:12)
[2016-09-27] MEDS: COZAAR PO SCH (09:12)
[2016-09-27] MEDS: GLUCOPHAGE PO SCH ×2 (09:13→16:50)
[2016-09-27] MEDS: LOPRESSOR PO SCH ×2 (09:13→20:01)
[2016-09-27] MEDS: LINACLOTIDE 290 MG PO SCH (09:15)
[2016-09-27] MEDS: LOVENOX SUBCUT SCH ×2 (09:16→20:01)
[2016-09-27] MEDS: MULTIVITAMIN PO SCH (09:16)
[2016-09-27] MEDS: PLAVIX PO SCH (09:17)
[2016-09-27] MEDS: PROCARDIA XL PO SCH ×2 (09:17→20:01)
[2016-09-27] MEDS: PROSCAR PO SCH (09:18)
[2016-09-27] MEDS: ZOCOR PO SCH (09:18)
--- NOTE | 2016-09-27 09:51 | PCM.PROG ---
Attending Provider: ATTENDING PROVIDER: Dr. ABIMAEL LINO DATE OF SERVICE: 09/27/16 SUBJECTIVE: This 85 year old WHITE/ M was hospitalized 09/22/16. The patient is hospitalized with change in mental status. The patient has acute thalamic stroke, small with old lacunar infarct. The patient is up and about. The patient is forgetful with cognitive function, reasoning skills, problem solving , memory loss - all a problem. He may improve with some compensation but otherwise prognosis doesn't look that good. The case was discussed case with speech therapist, Maira, and I agree with her -please refer to her note. REVIEW OF SYSTEMS: CONSTITUTIONAL: No night sweats. No fatigue, malaise, lethargy. No fever or chills. HEENT: Eyes: No visual changes. No eye pain. No eye discharge. ENT: No runny nose. No epistaxis. No sinus pain. No odynophagia. No congestion. RESPIRATORY: No cough, no congestion. No hemoptysis. CARDIOVASCULAR: No angina symptoms. No CHF symptoms. No atypical chest pain for CAD. No palpitations. No shortness of breath. GASTROINTESTINAL: No abdominal pain. No nausea or vomiting. No diarrhea or constipation. No hematemesis. No hematochezia. GENITOURINARY: No urgency. No frequency. No dysuria. No hematuria. No obstructive symptoms. No discharge. No pain. No significant abnormal bleeding. MUSCULOSKELETAL: No musculoskeletal pain; no joint swelling. NEUROLOGICAL: Awake, alert, oriented to person. No headache. No neck pain. No syncope. No seizures. No dizziness. PSYCHIATRIC: Not anxious. No depression. No suicidal thoughts. No homicidal thoughts. SKIN: No rash. No lesions. No wounds. ENDOCRINE: No unexplained weight loss. No weight gain. HEMATOLOGIC/LYMPHATIC: No anemia. No purpura. No petechiae. No prolonged or excessive bleeding. No palpable lymph nodes. PHYSICAL EXAMINATION: GENERAL: The patient is awake, alert and oriented to person, lying in bed in no distress. VITAL SIGNS: Temperature 96.9 F, Pulse 65, Respiratory Rate 18, BP 149/82, Pulse Ox 99% HEENT: Head normocephalic, atraumatic. Eyes: Extraocular muscles are intact. Pupils are equal, round and reactive to light and accommodation. Ears: No lesions. Nose appeared normal. Throat: No exudate or erythema. NECK: Supple. No JVD, no carotid bruit. No lymphadenopathy or thyromegaly. LUNGS: Clear to auscultation. Percussion note normal. Chest symmetrical. HEART: S1, S2, no S3. No murmurs. No cyanosis or clubbing. No ascites. Pulses: Dorsalis pedis and posterior tibial pulses +1 both sides. ABDOMEN: Soft. Non-tender. Bowel sounds active. No CVA tenderness. No mass felt. EXTREMITIES: No edema. Full range of motion of all extremities, equal. NEUROLOGIC: Mental status - oriented to person, see above. No headache, no double vision or headache. SKIN: Not dry. Intact. Turgor-normal. LYMPHATIC: No palpable lymph nodes/no lymphedema. MUSCULOSKELETAL: Normal joints with no swelling. Muscle tone is normal. LAB REVIEW: 09/27/16 04:46 09/27/16 04:46 09/27/16 04:46: WBC 7.79, RBC 4.32 L, Hgb 12.7 L, Hct 36.9 L, MCV 85.4, MCH 29.4 , MCHC 34.4, RDW Coeff of Daniel 13.0, Plt Count 183, Immature Gran % (Auto) 0.3, Neut % (Auto) 36.3, Lymph % (Auto) 49.6, [place] % (Auto) 8.9, Eos % (Auto) 4.5, Baso % (Auto) 0.4, Immature Gran # (Auto) 0.0, Neut # 2.8, Lymph # 3.9 H, [place] # 0.7, Eos # 0.4, Baso # 0.0, Sodium 141, Potassium 3.8, Chloride 108 H, Carbon Dioxide 25, Anion Gap 11.8, BUN 20 H, Creatinine 1.11 H, Estimated GFR (MDRD) 63.00, BUN/Creatinine Ratio 18.01, Glucose 130 H, Calcium 9.1, Total Bilirubin 1.14, AST 39 H, ALT 48, Alkaline Phosphatase 61, Total Protein 6.5, Albumin 3.6 , Globulin 2.9, Albumin/Globulin Ratio 1.24 ASSESSMENT: 1. Acute thalamic stroke 2. Old lacunar infarct 3. Hypertension 4. Dyslipidemia 5. Diabetes mellitus PLAN: 1. Plans for discharge 2. Continue same medications 3. The patient will be discharged with 24 hour care/supervision. Advised no driving, no riding bicycle for at least 6 months and will be reevaluated later. Speech therapy is involved. Daughter Mony is going to make arrangement for either home health/24 hour person staying in the home or assisted living. Plan and coordination of the patient's care discussed in the presence of Print Shop Stenographer and nurse. CONDITION: Stable SCRIBED BY: [facility] INGRAM Founder Chairman And Chief Creative Officer scribed while in presence of service performed by Dr. ABIMAEL LINO on 09/27/16 ([id number])
--- NOTE | 2016-09-27 09:55 | RS.COGNOTE ---
Cognitive Treatment Note Date of Note: 09/27/16 Visit #: 2 Time of Treatment: 08:30 Subjective: Pt alert sitting upright on side of bed consuming a.m. meal. MIMEOGRAPHER noted no swallowing or chewing difficulties during meal nor s/s of aspiration. Pt's youngest daughter present initially, however did not stay for SAFE assessment. MIMEOGRAPHER educated pt for understanding of assessment. Pt verbalized agreement and participated with adequate cooperation. No fatigue noted during questions. Total treatment time: 45 - Short Term Goals Goal #1: Pt to recall 3/5 daily events with memory aids Activity/Accuracy: Goal addressed informally with verbal questions. Pt recalled two daily events with verbal cues. Goal #2: Pt to verbalize problem solving skills for ADLs Activity/Accuracy: Goal addressed during SAFE assessment. Pt with moderate to profound deficits with problem solving, verbalizing dependence on others. Goal #3: Pt to complete reasoning tasks with 80% accuracy. Activity/Accuracy: Verbal reasoning tasks with functional situations completed at end of session. MIMEOGRAPHER utilized concrete reasoning situations to increase pts understanding, however pt demonstrated moderate difficulty with verbal reasoning skills. Goal #4: Pt to utilize 3/5 sequential thoughts for organization Activity/Accuracy: Goal not addressed this date. - Electrifier Operator Goals Goal #1: Pt to improve cognitive skills to 70% for ADLs Goal #2: Pt to improve cognitive skills to 70% for home management. Assessment: MIMEOGRAPHER completed the safety awareness functional evaluation (SAFE). Pt maintained adequate stamina and alertness during verbal questions. 40% of questions were repeated or rephrased to increase pt's understanding. MIMEOGRAPHER provided no verbal cues to stimulate verbal response. Results are as follows: 6/ 10 categories were measured as profound, 2/10 categories were measured as moderate, 1/10 categories was measured as mild, and 1/10 categories was not measured. Pt demonstrated profound difficulty with Room/bedroom/bathroom safety , swallow safety, medication and health, kitchen and appliance safety, home safety, and general precautions. Pt demonstrated moderate difficulty with community safety inside and outside. Pt demonstrated Mild difficulty with floors and stairs safety. Wheelchairs and assistive devices were not measured due to pts physical ability without the need for assistive devices. Overall, MIMEOGRAPHER determined pts Functional [place] Level as a 3-Moderate assistance and unsafe 50% of the time and requires moderate supervision to prevent bodily harm. MIMEOGRAPHER determined the Functional communication measure as 4-requires distant supervision with simple problem solving and close supervision with complex problem-solving tasks. - Units Charged Speech Therapy: 3 - Plan Frequency of Treatment: 2x a week Duration of Treatment: 1 Week Comments: MIMEOGRAPHER recommends pt for NURSING HOME at time of discharge due to results of SAFE assessment. Overall, pt is unsafe 50% of the time.
--- NOTE | 2016-09-27 13:43 | PN ---
DATE OF SERVICE: 09/26/16 SUBJECTIVE: The patient is a 85 year old white male hospitalized with change in the mental status which was acute. The patient has thalamic stroke. The patient has old lacunar stroke. The patient's condition is stable. He is forgetful. Again today I asked him what happened yesterday and does he know the diagnosis and the tests that were done and what are the results of it. The patient has no clue about it but he knows that I am his doctor and he knows my name and he knows the daughter's name. REVIEW OF SYSTEMS: CONSTITUTIONAL: No night sweats. No fatigue, malaise, lethargy. No fever or chills. HEENT: Eyes: No visual changes. No eye pain. No eye discharge. ENT: No runny nose. No epistaxis. No sinus pain. No sore throat. No odynophagia. No congestion. RESPIRATORY: No cough, no congestion. No hemoptysis. CARDIOVASCULAR: No angina symptoms. No CHF symptoms. No atypical chest pain for CAD. No palpitations. No shortness of breath. GASTROINTESTINAL: No abdominal pain. No nausea or vomiting. No diarrhea or constipation. No hematemesis. No hematochezia. GENITOURINARY: No urgency. No frequency. No dysuria. No hematuria. No obstructive symptoms. No discharge. No pain. No significant abnormal bleeding. MUSCULOSKELETAL: No musculoskeletal pain; no joint swelling. NEUROLOGICAL: No headache. No neck pain. No syncope. No seizures. No dizziness. Confusion and loss of memory from the past. PSYCHIATRIC: Not anxious. No depression. No suicidal thoughts. No homicidal thoughts. SKIN: No rash. No lesions. No wounds. ENDOCRINE: No unexplained weight loss. No weight gain. HEMATOLOGIC/LYMPHATIC: No anemia. No purpura. No petechiae. No prolonged or excessive bleeding. No palpable lymph nodes. PHYSICAL EXAMINATION: GENERAL: The patient is oriented to person. VITAL SIGNS: Temperature 98.2, pulse 63, respiratory rate 20, blood pressure 127/62 and pulse ox 95%. HEENT: Head normocephalic, atraumatic. Eyes: Extraocular muscles are intact. Pupils are equal, round and reactive to light and accommodation. Ears: No lesions. Nose appeared normal. Throat: No exudate or erythema. NECK: Supple. No JVD, no carotid bruit. No lymphadenopathy or thyromegaly. LUNGS: Decreased breath sounds but clear to auscultation. Percussion note normal. Chest symmetrical. HEART: S1, S2, no S3. No murmurs. No cyanosis or clubbing. No ascites. Pulses: Dorsalis pedis and posterior tibial pulses +1 to +2 both sides. ABDOMEN: Soft. Nontender. Bowel sounds active. No CVA tenderness. No mass felt. EXTREMITIES: No edema. Full range of motion of all extremities, equal. NEUROLOGIC: No focal deficit. Cranial nerves II through XII are grossly intact. No headache, no double vision or headache. SKIN: Not dry. Intact. Turgor - normal. LYMPHATIC: No palpable lymph nodes/no lymphedema. MUSCULOSKELETAL: Normal joints with no swelling. Muscle tone is normal. LABS: Hgb 13, hct 37, WBC 7,400 normal differential, creatinine 1.1, BUN 21, potassium 4.1 and glucose 141. ASSESSMENT: 1. Acute thalamic stroke 2. Hypertension 3. Diabetes mellitus 4. Old TIA 5. Lacunar infarct PLAN: 1. Continue Plavix 2. Lovenox 3. Continue anti-hypertensive medication 4. The patient has been referred for speech therapy TIME SPENT: More than 30 minutes. Plan and coordination of the patient's care discussed in the presence of nurse. ERICA
[2016-09-28 05:04] LABS: BASOPHILS % (AUTO) 0.6 % (0.0-3.0); EOSINOPHILS # (AUTO) 0.3 K/ul (0.0-0.7); HEMATOCRIT 36.2 % (42.0-52.0); HEMOGLOBIN 12.7 g/dl (14.0-18.0); IMMATURE GRANULOCYTE % (AUTO) 0.4 % (0.0-5.0); LYMPHOCYTES # (AUTO) 3.2 K/uL (0.60-3.4); LYMPHOCYTES % (AUTO) 46.5 (10.0-50.0); MEAN CORPUSCULAR HEMOGLOBIN 29.6 pg (27.0-31.0); MEAN CORPUSCULAR HGB CONC 35.1 (31.8-35.4); MEAN CORPUSCULAR VOLUME 84.4 fl (80.0-94.0); MONOCYTES # (AUTO) 0.7 K/uL (0.4-2.0); MONOCYTES % (AUTO) 9.9 (0-10); NEUTROPHILS # (AUTO) 2.6 K/ul (2.0-6.9); NEUTROPHILS % (AUTO) 37.6; PLATELET COUNT 179 10^3/uL (140-440); RED BLOOD COUNT 4.29 10^6/ul (4.70-6.10); WHITE BLOOD COUNT 6.78 K/ul (4.2-10.2)
[2016-09-28 05:39] LABS: ALBUMIN 3.5 g/dL (3.4-5.0); ALBUMIN/GLOBULIN RATIO 1.3; BILIRUBIN,TOTAL 1.08 mg/dL (0.00-1.20); BUN/CREATININE RATIO 18.81; CALCIUM 8.9 mg/dL (8.2-10.2); CREATININE 1.01 mg/dL (0.60-1.10); TOTAL PROTEIN 6.2 g/dL (5.8-8.1)
[2016-09-28] MEDS: PROCARDIA XL PO SCH (08:48)
[2016-09-28] MEDS: ZOCOR PO SCH (08:48)
[2016-09-28] MEDS: MULTIVITAMIN PO SCH (08:48)
[2016-09-28] MEDS: COZAAR PO SCH (08:48)
[2016-09-28] MEDS: LOPRESSOR PO SCH (08:48)
[2016-09-28] MEDS: LINACLOTIDE 290 MG PO SCH (08:48)
[2016-09-28] MEDS: PROSCAR PO SCH (08:48)
[2016-09-28] MEDS: ASPIRIN EC PO SCH (08:49)
[2016-09-28] MEDS: LOVENOX SUBCUT SCH (08:49)
[2016-09-28] MEDS: PLAVIX PO SCH (08:49)
[2016-09-28] MEDS: GLUCOPHAGE PO SCH (08:49)
[2016-09-28 10:20] VITALS: BP 107/64; TEMP 97
--- NOTE | 2016-09-28 10:59 | PCM.PROG ---
Attending Provider: ATTENDING PROVIDER: Dr. ABIMAEL LINO DATE OF SERVICE: 09/28/16 SUBJECTIVE: This 85 year old WHITE/ M was hospitalized 09/22/16. The patient is hospitalized with acute thalamic stroke with memory loss that is similar to Alzheimer's of acute onset. He doesn't recall anything anything that happened yesterday. He remembers a few things such as he is not going to drive or ride his bike and is not happy about it. He is oriented to person and place but confused about other things. REVIEW OF SYSTEMS: CONSTITUTIONAL: No night sweats. No fatigue, malaise, lethargy. No fever or chills. HEENT: Eyes: No visual changes. No eye pain. No eye discharge. ENT: No runny nose. No epistaxis. No sinus pain. No odynophagia. No congestion. RESPIRATORY: No cough, no congestion. No hemoptysis. CARDIOVASCULAR: No angina symptoms. No CHF symptoms. No atypical chest pain for CAD. No palpitations. No shortness of breath. GASTROINTESTINAL: No abdominal pain. No nausea or vomiting. No diarrhea or constipation. No hematemesis. No hematochezia. GENITOURINARY: No urgency. No frequency. No dysuria. No hematuria. No obstructive symptoms. No discharge. No pain. No significant abnormal bleeding. MUSCULOSKELETAL: No musculoskeletal pain; no joint swelling. NEUROLOGICAL: Awake, alert, oriented to person and place but has memory problems. No headache. No neck pain. No syncope. No seizures. No dizziness. PSYCHIATRIC: Not anxious. No depression. No suicidal thoughts. No homicidal thoughts. SKIN: No rash. No lesions. No wounds. ENDOCRINE: No unexplained weight loss. No weight gain. HEMATOLOGIC/LYMPHATIC: No anemia. No purpura. No petechiae. No prolonged or excessive bleeding. No palpable lymph nodes. PHYSICAL EXAMINATION: GENERAL: The patient is awake, alert and oriented, lying in bed in no distress. VITAL SIGNS: Temperature 97.8 F, Pulse 81, Respiratory Rate 20, BP 135/75, Pulse Ox 96% HEENT: Head normocephalic, atraumatic. Eyes: Extraocular muscles are intact. Pupils are equal, round and reactive to light and accommodation. Ears: No lesions. Nose appeared normal. Throat: No exudate or erythema. NECK: Supple. No JVD, no carotid bruit. No lymphadenopathy or thyromegaly. LUNGS: Clear to auscultation. Percussion note normal. Chest symmetrical. HEART: S1, S2, no S3. No murmurs. No cyanosis or clubbing. No ascites. Pulses: Dorsalis pedis and posterior tibial pulses +1 to +2 both sides. ABDOMEN: Soft. Non-tender. Bowel sounds active. No CVA tenderness. No mass felt. EXTREMITIES: No edema. Full range of motion of all extremities, equal. NEUROLOGIC: No focal deficit. Cranial nerves II through XII are grossly intact. No headache, no double vision or headache. SKIN: Not dry. Intact. Turgor-normal. LYMPHATIC: No palpable lymph nodes/no lymphedema. MUSCULOSKELETAL: Normal joints with no swelling. Muscle tone is normal. LAB REVIEW: 09/28/16 04:59 09/28/16 04:59 09/28/16 04:59: WBC 6.78, RBC 4.29 L, Hgb 12.7 L, Hct 36.2 L, MCV 84.4, MCH 29.6 , MCHC 35.1, RDW Coeff of Daniel 13.1, Plt Count 179, Immature Gran % (Auto) 0.4, Neut % (Auto) 37.6, Lymph % (Auto) 46.5, [place] % (Auto) 9.9, Eos % (Auto) 5.0, Baso % (Auto) 0.6, Immature Gran # (Auto) 0.0, Neut # 2.6, Lymph # 3.2, [place] # 0.7, Eos # 0.3, Baso # 0.0, Sodium 139, Potassium 4.0, Chloride 109 H, Carbon Dioxide 22 L, Anion Gap 12.0, BUN 19 H, Creatinine 1.01, Estimated GFR (MDRD) 70.00, BUN/Creatinine Ratio 18.81, Glucose 125 H, Calcium 8.9, Total Bilirubin 1.08, AST 37, ALT 53, Alkaline Phosphatase 60, Total Protein 6.2, Albumin 3.5, Globulin 2.7, Albumin/Globulin Ratio 1.30 ASSESSMENT: 1. Acute thalamic stroke with chronic lacunar infarct 2. Mental status changes 3. Hypertension 4. Diabetes mellitus 5. Dyslipidemia PLAN: 1. Speech therapy and speech therapist says cognition and reasoning skills are all affected because of thalamic stroke. The patient will not be driving or riding bike for 6 months. Further recommendation depending on progress. 2. The patient will be on Plavix and Aspirin. Plan and coordination of the patient's care discussed in the presence of Water/Wastewater Engineer and nurse. EDUCATION: Stroke risk factors are discussed with family members. The patient will be discharged either at assisted living with speech therapy as outpatient or a special place where he is taken care of by speech therapist. CONDITION: Stable SCRIBED BY: [facility] IN[employer] [facility] Aide scribed while in presence of service performed by Dr. ABIMAEL LINO on 09/28/16 ([id number])
--- NOTE | 2016-09-28 13:21 | CM.DICTOOL ---
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, per MRI Change in mental status Hypertension TIA Dyslipidemia Diabetes Mellitus, type 2 Former Smoker Prostate Cancer Vocal Cord Dysfunction Skin cancer excisions, x 3 Tonsillectomy LAST VITALS Temp Pulse Resp BP Pulse Ox 97 F L 86 20 107/64 98 09/28/16 10:00 09/28/16 10:00 09/28/16 10:00 09/28/16 10:00 09/28/16 10:00 ACTIVE MEDICATIONS Cetirizine HCl (Zyrtec) 10 mg PO DAILY PRN PRN Reason: Allergy Symptoms Last Admin: 09/26/16 21:15 Dose: 10 mg Clopidogrel Bisulfate (Plavix) 75 mg PO DAILY [facility] Last Admin: 09/28/16 08:49 Dose: 75 mg Finasteride (Proscar) 5 mg PO DAILY [facility] Last Admin: 09/28/16 08:48 Dose: 5 mg Losartan Potassium (Cozaar) 100 mg PO DAILY [facility] Last Admin: 09/28/16 08:48 Dose: 100 mg Metformin HCl (Glucophage) 500 mg PO BIDWM [facility] Last Admin: 09/28/16 08:49 Dose: 500 mg Metoprolol Tartrate (Lopressor) 100 mg PO BID [facility] Last Admin: 09/28/16 08:48 Dose: 100 mg Multivitamins (Multivitamin) 1 cap PO DAILY [facility] Last Admin: 09/28/16 08:48 Dose: 1 cap Nifedipine (Procardia Xl) 60 mg PO BID [facility] Last Admin: 09/28/16 08:48 Dose: 60 mg Non-Formulary Medication (Linaclotide [Linzess]) 290 mg PO DAILY [facility] Last Admin: 09/28/16 08:48 Dose: 290 mg Simvastatin (Zocor) 40 mg PO DAILY [facility] Last Admin: 09/28/16 08:48 Dose: 40 mg ALLERGIES No Known Allergies Allergy (Verified 03/29/16 17:04) NEW PRESCRIPTIONS: No prescriptions SMOKING: Not Applicable DISEASE SPECIFIC EDUCATION: CVA Medications Activity Restrictions Appointment LAB REVIEW: 09/28/16 04:59 09/28/16 04:59 09/28/16 04:59: WBC 6.78, RBC 4.29 L, Hgb 12.7 L, Hct 36.2 L, MCV 84.4, MCH 29.6 , MCHC 35.1, RDW Coeff of Daniel 13.1, Plt Count 179, Immature Gran % (Auto) 0.4, Neut % (Auto) 37.6, Lymph % (Auto) 46.5, Person % (Auto) 9.9, Eos % (Auto) 5.0, Baso % (Auto) 0.6, Immature Gran # (Auto) 0.0, Neut # 2.6, Lymph # 3.2, Person # 0.7, Eos # 0.3, Baso # 0.0, Sodium 139, Potassium 4.0, Chloride 109 H, Carbon Dioxide 22 L, Anion Gap 12.0, BUN 19 H, Creatinine 1.01, Estimated GFR (MDRD) 70.00, BUN/Creatinine Ratio 18.81, Glucose 125 H, Calcium 8.9, Total Bilirubin 1.08, AST 37, ALT 53, Alkaline Phosphatase 60, Total Protein 6.2, Albumin 3.5, Globulin 2.7, Albumin/Globulin Ratio 1.30 PLAN: Discharge to [facility] in [place], [place] Admit to facility Diet: Heart Healthy Activity: As tolerated by Patient No driving for a period of 6 months. This will need re-evaluated. Orders: Physical and Occupational Therapy Evaluation Speech Therapy Evaluation for cognition and safety with tasks An appointment is scheduled with Dr. Elmo Singh in [place], [place] for October 05 at 1:45 pm. The family requests this appointment and will transport. Other orders as deemed necessary by admitting physician at [facility]. Mr. Calderon is alert and oriented to person, place and situation. He is aware that he has suffered a stroke, but may not always correctly identify his problem. He moves all extremities without difficulty. Speech is not slurred. No difficulty swallowing has been identified. He is independent with feeding and does not require an assistive device with ambulation. Meal intakes have been good at 50-100%. No abdominal pain or nausea. Skin is intact and free of decubitus ulcers or irritation. Elmo Singh MD
--- NOTE | 2016-10-03 13:31 | DS ---
DATE OF SERVICE: 09/28/16 FINAL DIAGNOSIS: 1. CVA, RIGHT THALAMIC INFARCT PER MRI 2. CHRONIC LACUNAR INFARCT, PER MRI 3. CHANGE IN MENTAL STATUS 4. HYPERTENSION 5. TIA 6. DYSLIPIDEMIA 7. DIABETES MELLITUS, TYPE 2 8. FORMER SMOKER 9. PROSTATE CANCER 10. VOCAL CORD DYSFUNCTION 11. SKIN CANCER EXCISIONS TIMES 3 12. TONSILLECTOMY V/S: Temperature 97, pulse 86, respiratory rate 20, BP 107/64, pulse ox 98 DISCHARGE INSTRUCTIONS: 1. Followup appointment: An appointment is scheduled with Dr. Singh in [place], [place] for October 05 at 1:45 p.m. The family requests this appointment and will transport. 2. Other orders as deemed necessary by admitting physician at [facility]. 3. Physical and occupational therapy evaluation 4. Speech Therapy evaluation for cognition and safety with tasks. 5. Discharge to [facility] in [place], [place] MEDICATIONS AT DISCHARGE: 1. Simvastatin 40 mg p.o. daily 2. Metoprolol 100 mg p.o. b.i.d. 3. Losartan (Cozaar) 100 mg p.o. daily 4. Finasteride 5 mg p.o. daily 5. Clopidogrel 75 mg p.o. daily 6. Metformin 500 mg p.o. b.i.d. 7. Cetirizine 10 mg p.o. daily p.r.n. 8. Multivitamin one each p.o. daily 9. Nifedipine 30 mg tab ER 60 mg p.o. b.i.d. 10. Linaclotide (Linzess) 290 mg p.o. daily NEW PRESCRIPTIONS: No prescriptions DIET INSTRUCTIONS: Heart Healthy ACTIVITY: As tolerated by patient. No driving for a period of 6 months. This will need re-evaluated. SMOKING: Not Applicable DISEASE SPECIFIC EDUCATION: CVA Medications Activity Restrictions Appointment HOSPITAL COURSE: 85-year-old white male hospitalized with change in mental status almost like acute onset of Alzheimer's disease type of symptoms. The patient was seen in the office with two daughters and both of them had noticed change in his mental status with extreme forgetfulness starting nearly 7 to 10 days prior to hospitalization when he called one of them from the [facility] in order to find the place. He had no idea where he was supposed to go. Since then they have noticed remarkable change in his mental status in the way he is getting lost, not able to recollect what happened yesterday, et cetera. The patient was hospitalized with MRI of the brain with contrast showing acute small right thalamic infarct. Repeat CT scan of the head showed the same thing. The patient had carotid scan done which showed carotid occlusive disease, not hemodynamically significant. In any case, the patient was monitored with telemetry for 5 to 6 days where he did not show any evidence of atrial fib. The patient was put on Lovenox and was continued on Plavix. At the time of discharge , he was put on Plavix and aspirin to be taken. The patient's risk factors for CVA are well-controlled like blood pressure, diabetes, hypertension. The patient continued to have problem with memory, especially recent/past memory because of his thalamic infarct having problem with what happened yesterday or recent memory. The patient's cognition, ability to reason has been affected. Speech Therapy was consulted. The patient was eventually discharged to one of the [facility] facilities there and will undergo swing bed type of program with speech therapy. The family consisting of his four daughters took a lot of interest. LABS: Hemoglobin 12.7, hematocrit 36, WBC 6,700, normal differential. Creatinine 1, BUN 19, potassium 4, glucose 125, TSH normal. CONDITION AT TIME OF DISCHARGE: Stable. TIME SPENT: More than 60 minutes. MARIAMAD
== END 2016-09-28 14:55 | disposition home or self-care (01) | DRG 66 ==
LOC: SCU 11:12 → MEDSURG B 09-26 18:44
PROVIDERS: ADMIT Internal Medicine; ATTEND Internal Medicine
DX: I63.8 Other cerebral infarction (principal); G46.7 Other lacunar syndromes; I51.7 Cardiomegaly; R41.82 Altered mental status, unspecified; I65.23 Occlusion and stenosis of bilateral carotid arteries; I10 Essential (primary) hypertension; E11.9 Type 2 diabetes mellitus without complications; E78.5 Hyperlipidemia, unspecified; Z86.73 Personal history of transient ischemic attack (TIA), and cerebral infarction without residual deficits; Z79.01 Long term (current) use of anticoagulants; Z79.899 Other long term (current) drug therapy; Z79.84 Long term (current) use of oral hypoglycemic drugs; Z87.891 Personal history of nicotine dependence
CPT/HCPCS: 36415; 80053; 81001; 82550; 82607; 83874; 84443; 84484; 85025; 93005; 93010

== ENCOUNTER 2016-10-18 13:47 | Outpatient (CLI) ==
--- NOTE | 2016-10-18 17:15 | MRI ---
EXAM: Brain MRI with and without contrast. HISTORY: Transient ischemic attack/stroke. Dementia. COMPARISON: None. TECHNIQUE: Multiplanar, multisequence MR images were acquired of the brain before and after adminis tration of intravenous contrast. FINDINGS: The midline structures are central and the craniocervical junction is unremarkable. The ventricles, sulci and cisterns are generally mildly enlarged. There are few mild to moderately wide gudelia sulci in the superior frontal and parietal lobes bilaterally. These findings are consistent wit h mild diffuse cerebral volume loss. The brain parenchyma has no diffusion restriction to suggest acute hypoperfusion or infarction. Hyp erintense T1 signal is present in the medial right thalamus suggestive of microcalcification. Chroni c lacunes are present in the right frontal centrum semiovale and right basal ganglia. Extensive dil ated perivascular spaces are present in the basal ganglia bilaterally. This limits sensitivity in d etecting small lacunar infarcts. Small T2 hyperintensities are present in the supratentorial white matter, both basal ganglia, left thalamus and kandis. These are most numerous along the bodies of the lateral ventricle bilaterally and in the parieto-occipital periventricular white matter. This is c ompatible with moderate leukoencephalopathy. There is no abnormal dark gradient echo signal. After administration of gadolinium, no enhancing lesions are detected. The corpus callosum is normal in configuration. The pituitary gland is unremarkable. The infundibulum is midline. There are no intraorbital masses. There has been previous lens surgery bilaterally. There is a tra ce of fluid in the left sphenoid air cell. No abnormal contrast enhancement is present in the inter nal auditory canals or labyrinthine structures. Flow voids are present in the major intracranial arteries and dural venous sinuses. There is right C 2-3 facet hypertrophy. IMPRESSION: 1. No intracranial mass, hemorrhage or acute cerebral infarct. 2. Mild diffuse cerebral volume loss and moderate chronic ischemic small vessel disease. 3. Chronic lacunes right frontal centrum semiovale and right basal ganglia.
== END 2016-10-18 13:48 | disposition home or self-care (01) ==
LOC: RAD 13:47
PROVIDERS: ATTEND Internal Medicine
DX: G45.9 Transient cerebral ischemic attack, unspecified (principal); F03.90 Unspecified dementia, unspecified severity, without behavioral disturbance, psychotic disturbance, mood disturbance, and anxiety

== ENCOUNTER 2018-07-26 12:33 | Inpatient (IN) | payer OTHER ==
[2018-07-26] MEDS ORDERED: LANOXIN IVP STA (13:09)
[2018-07-26] MEDS ORDERED: LASIX IVP STA (13:10)
[2018-07-26 13:12] VITALS: BMI 27.3
[2018-07-26] MEDS ORDERED: TYLENOL PO PRN (13:15)
[2018-07-26] MEDS ORDERED: ATROPINE SULFATE PFS IVP PRN (13:15)
[2018-07-26] MEDS ORDERED: NITROSTAT SL PRN (13:15)
[2018-07-26] MEDS ORDERED: SOLU-CORTEF 100 MG IVP SCH (13:30)
[2018-07-26] MEDS ORDERED: LASIX ONE (13:31)
[2018-07-26] MEDS ORDERED: SOLU-CORTEF 100 MG ONE (13:31)
[2018-07-26] MEDS ORDERED: LANOXIN ONE (13:31)
[2018-07-26] MEDS ORDERED: SOLU-CORTEF 250 MG ONE (13:36)
[2018-07-26] MEDS: SOLU-CORTEF 250 MG IVP SCH ×2 (13:39→21:15)
--- NOTE | 2018-07-26 14:56 | DI ---
EXAM: Chest two views HISTORY: Shortness of air COMPARISON: 09/22/2016 TECHNIQUE: Two views of the chest were performed FINDINGS: Heart top normal in size. Mediastinal contour normal, noting atherosclerosis. Right iian hilar infiltrate. Trace bilateral pleural effusions with left basilar atelectasis and/or consolidati on. No visible pneumothorax. IMPRESSION: 1. Right perihilar infiltrate likely representing pneumonia. Recommend short-term radiographic foll ow-up to resolution. 2. Trace bilateral pleural effusions with left basilar atelectasis and/or pneumonia. Report faxed
[2018-07-26] MEDS ORDERED: LOVENOX ONE (15:00)
[2018-07-26] MEDS: LOVENOX SUBCUT SCH (15:01)
[2018-07-26] MEDS: GLUCOPHAGE PO SCH (17:06)
[2018-07-26] MEDS ORDERED: PROCARDIA XL PO SCH (21:00)
[2018-07-26] MEDS ORDERED: NON-FORMULARY MEDICATION (Metoprolol Tartrate [Metoprolol Tartrate] 100 MG) PO SCH (21:00)
[2018-07-26] MEDS ORDERED: NON-FORMULARY MEDICATION (Escitalopram Oxalate [Lexapro] 5 MG) PO SCH (21:00)
[2018-07-26] MEDS ORDERED: MULTIVITAMIN TABLET PO SCH (21:00)
[2018-07-26] MEDS: LEXAPRO PO SCH (21:15)
[2018-07-26] MEDS: ZOCOR PO SCH (21:16)
[2018-07-26] MEDS: LOPRESSOR PO SCH (21:16)
[2018-07-26] MEDS: LYCOPEN PO SCH (21:23)
[2018-07-26] MEDS: MULTIVIT MIN PO SCH (21:23)
[2018-07-26] MEDS: LUTEIN PO SCH (21:23)
[2018-07-26] MEDS: [UNRECOGNIZED DRUG - OTHER] PO SCH (21:23)
[2018-07-27] MEDS ORDERED: LANOXIN IVP STA ×2 (00:51→12:04)
[2018-07-27] MEDS ORDERED: CARDIZEM PO ONE (00:52)
[2018-07-27] MEDS ORDERED: CARDIZEM ONE ×2 (01:07→12:40)
[2018-07-27] MEDS ORDERED: LANOXIN ONE ×2 (01:07→12:40)
[2018-07-27] MEDS ORDERED: XOPENEX 1.25 MG NEB ONE (04:27)
[2018-07-27] MEDS: XOPENEX 1.25 MG NEB SCH ×4 (05:05→21:10)
[2018-07-27] MEDS: SOLU-CORTEF 250 MG IVP SCH ×3 (06:10→21:04)
[2018-07-27] MEDS: ASPIRIN EC PO SCH (09:13)
[2018-07-27] MEDS: COZAAR PO SCH (09:13)
[2018-07-27] MEDS: MULTIVITAMIN TABLET PO SCH (09:13)
[2018-07-27] MEDS: GLUCOPHAGE PO SCH ×2 (09:14→17:05)
[2018-07-27] MEDS: PROSCAR PO SCH (09:14)
[2018-07-27] MEDS: LOPRESSOR PO SCH ×2 (09:14→20:29)
[2018-07-27] MEDS: PLAVIX PO SCH (09:14)
[2018-07-27] MEDS: LOVENOX SUBCUT SCH (09:15)
[2018-07-27] MEDS ORDERED: ATARAX PO PRN (12:26)
[2018-07-27] MEDS ORDERED: ZITHROMAX ONE (12:48)
[2018-07-27] MEDS: VISTARIL INJ IM PRN ×2 (12:49→20:34)
[2018-07-27] MEDS: ZITHROMAX PO SCH (12:51)
[2018-07-27] MEDS: CARDIZEM PO SCH ×2 (12:51→20:30)
[2018-07-27] MEDS: ZOCOR PO SCH (20:31)
[2018-07-27] MEDS: LEXAPRO PO SCH (20:31)
[2018-07-27] MEDS: MULTIVIT MIN PO SCH (21:05)
[2018-07-27] MEDS: [UNRECOGNIZED DRUG - OTHER] PO SCH (21:05)
[2018-07-27] MEDS: LYCOPEN PO SCH (21:05)
[2018-07-27] MEDS: LUTEIN PO SCH (21:05)
[2018-07-28] MEDS: XOPENEX 1.25 MG NEB SCH ×4 (04:48→23:15)
[2018-07-28] MEDS: SOLU-CORTEF 250 MG IVP SCH ×3 (06:12→21:08)
[2018-07-28] MEDS: COZAAR PO SCH (08:36)
[2018-07-28] MEDS: MULTIVITAMIN TABLET PO SCH (08:36)
[2018-07-28] MEDS: ZITHROMAX PO SCH (08:36)
[2018-07-28] MEDS: LOPRESSOR PO SCH ×2 (08:36→20:56)
[2018-07-28] MEDS: PLAVIX PO SCH (08:37)
[2018-07-28] MEDS: GLUCOPHAGE PO SCH ×2 (08:37→16:40)
[2018-07-28] MEDS: CARDIZEM PO SCH ×2 (08:37→20:57)
[2018-07-28] MEDS: LOVENOX SUBCUT SCH (08:38)
[2018-07-28] MEDS: ASPIRIN EC PO SCH (08:38)
[2018-07-28] MEDS: PROSCAR PO SCH (08:38)
[2018-07-28] MEDS ORDERED: LANOXIN IVP STA (12:23)
[2018-07-28] MEDS ORDERED: LANOXIN ONE (13:04)
[2018-07-28] MEDS ORDERED: MYLANTA SUSP PO PRN (20:37)
[2018-07-28] MEDS ORDERED: MYLANTA SUSP ONE (20:42)
[2018-07-28] MEDS: LEXAPRO PO SCH (20:54)
[2018-07-28] MEDS: ZOCOR PO SCH (20:58)
[2018-07-28] MEDS: VISTARIL INJ IM PRN (21:00)
[2018-07-28] MEDS: LUTEIN PO SCH (21:10)
[2018-07-28] MEDS: [UNRECOGNIZED DRUG - OTHER] PO SCH (21:10)
[2018-07-28] MEDS: LYCOPEN PO SCH (21:10)
[2018-07-28] MEDS: MULTIVIT MIN PO SCH (21:10)
[2018-07-29] MEDS: XOPENEX 1.25 MG NEB SCH ×4 (05:08→23:10)
[2018-07-29] MEDS: SOLU-CORTEF 250 MG IVP SCH ×3 (05:31→21:08)
[2018-07-29] MEDS ORDERED: LASIX IVP STA (07:54)
[2018-07-29] MEDS ORDERED: CARDIZEM PO SCH (10:00)
--- NOTE | 2018-07-29 10:00 | DI ---
Exam: Two views of the chest. Comparison: 07/26/2018. Reason for exam: Wheezing. FINDINGS: Patchy airspace opacities are seen bilaterally with blunting of the costophrenic angles an d a small effusion. The cardiac silhouette is unchanged. No pneumothorax is seen. Impression: 1. Patchy airspace opacities likely atelectasis/pneumonia with pulmonary vascular congestion. 2. Small pleural effusion.
--- NOTE | 2018-07-29 11:07 | PCM.PROG ---
Attending Provider: ATTENDING PROVIDER: Dr. ABIMAEL LINO This patient is seen with Marie Galindo, Nurse Practitioner. DATE OF SERVICE: 07/29/18 SUBJECTIVE: This 87 year old WHITE/ M was hospitalized 07/26/18. The patient is resting comfortably. Some episode of choking when taking liquids. Still short of breath when up to the bathroom REVIEW OF SYSTEMS: CONSTITUTIONAL: No night sweats. No fatigue, malaise, lethargy. No fever or chills. HEENT: Eyes: No visual changes. No eye pain. No eye discharge. ENT: No runny nose. No epistaxis. No sinus pain. No odynophagia. No congestion. RESPIRATORY: No cough, no congestion. No hemoptysis. Shortness of breath with exertion. CARDIOVASCULAR: No angina symptoms. No CHF symptoms. No atypical chest pain for CAD. No palpitations. No orthopnea.. GASTROINTESTINAL: No abdominal pain. No nausea or vomiting. No diarrhea or constipation. No hematemesis. No hematochezia. GENITOURINARY: No urgency. No frequency. No dysuria. No hematuria. No obstructive symptoms. No discharge. No pain. No significant abnormal bleeding. MUSCULOSKELETAL: No musculoskeletal pain; no joint swelling. Weakness. NEUROLOGICAL: Awake, alert, oriented to time, place and person. No headache. No neck pain. No syncope. No seizures. No dizziness. PSYCHIATRIC: Not anxious. No depression. No suicidal thoughts. No homicidal thoughts. SKIN: No rash. No lesions. No wounds. ENDOCRINE: No unexplained weight loss. No weight gain. HEMATOLOGIC/LYMPHATIC: No anemia. No purpura. No petechiae. No prolonged or excessive bleeding. No palpable lymph nodes. PHYSICAL EXAMINATION: GENERAL: The patient is awake, alert and oriented, lying in bed in no distress. VITAL SIGNS: Temperature 97.9 F, Pulse 102, Respiratory Rate 18, BP 163/98, Pulse Ox 96% HEENT: Head normocephalic, atraumatic. Eyes: Extraocular muscles are intact. Pupils are equal, round and reactive to light and accommodation. Ears: No lesions. Nose appeared normal. Throat: No exudate or erythema. NECK: Supple. No JVD, no carotid bruit. No lymphadenopathy or thyromegaly. LUNGS: Diminished breath sounds. Clear to auscultation. Percussion note normal. Chest symmetrical. Bilateral wheezing. HEART: Irregular heart rate. S1, S2, no S3. No murmurs. No cyanosis or clubbing. No ascites. Pulses: Dorsalis pedis and posterior tibial pulses +1 to +2 both sides. ABDOMEN: Soft. Non-tender. Bowel sounds active. No CVA tenderness. No mass felt. EXTREMITIES: Bilateral trace edema. Full range of motion of all extremities, equal. NEUROLOGIC: No focal deficit. Cranial nerves II through XII are grossly intact. No headache, no double vision or headache. SKIN: Not dry. Intact. Turgor-normal. LYMPHATIC: No palpable lymph nodes/no lymphedema. MUSCULOSKELETAL: Normal joints with no swelling. Muscle tone is normal. LAB REVIEW: 07/29/18 05:00 07/29/18 05:00 07/29/18 05:00: Sodium 138.4, Potassium 4.12, Chloride 103.5, Carbon Dioxide 24.1, Anion Gap 14.92, BUN 34.4 H, Creatinine 1.08, Estimated GFR (MDRD) 65.00, BUN/Creatinine Ratio 31.85, Glucose 453.7 H, Calcium 8.87, Total Bilirubin 0.45 , AST 90.9 H D, ALT 36.8, Alkaline Phosphatase 73.7, Total Protein 6.47, Albumin 3.65, Globulin 2.82, Albumin/Globulin Ratio 1.29 07/29/18 05:00: WBC 9.26, RBC 3.67 L, Hgb 10.4 L, Hct 31.0 L, MCV 84.5, MCH 28.3 , MCHC 33.5, RDW Coeff of Daniel 12.9, Plt Count 219, Immature Gran % (Auto) 2.2, Neut % (Auto) 72.8, Lymph % (Auto) 18.0, [place] % (Auto) 6.9, Eos % (Auto) 0.0, Baso % (Auto) 0.1, Immature Gran # (Auto) 0.2, Neut # (Auto) 6.7, Lymph # (Auto ) 1.7, [facility] # (Auto) 0.6, Eos # (Auto) 0.0, Baso # (Auto) 0.0 ASSESSMENT: Please see below. 1. Atrial flutter improving 2. CHF 3. Acute bronchitis 4. Dementia PLAN: 1. Accu-checks with sliding scale 2. Chest x-ray 3. Echo 4. PT/OT 5. Lasix 40mg IV once 6. Speech evaluation 7. Upper GI Plan and coordination of the patient's care discussed in the presence of Pickle Pumper and nurse. SCRIBED BY: Jake CROWLEY scribed while in presence of service performed by Dr. Lino/Marie Galindo APRN on 07/29/18 ([id number])
--- NOTE | 2018-07-29 11:26 | ECHO2D ---
Date of Exam: 07/27/18 Ordering Physician: DR. ABIMAEL LINO Room #: 112 Reason for Echo: ATRIAL FLUTTER, ATRIAL FIBRILLATION, HYPERTENSION M-Mode Normal Adult Results LV Dimensions Normal Adult Results AoV Opening excursions >1.6 >1.6 LVEDD-base- 3.5-5.8 5.5 Ao root dimensions 2.0-3.7 3.7 LVESD-base- 3.1-4.6 L. Atrium dimensions 1.9-3.8 4.3 Post. Wall thickness 0.8-1.1 1.2 IV septum (thickness) 0.7-1.2 1.2 Post. Wall excursion 0.72-1.3 0.7 Septal motion NORMAL Systolic motion R. Ventricular cavity 1.5-2.0 NORMAL LVEF 60% 50% Paradoxical septal wall motion NORMAL 2-D : MAYBE HYPOKINETIC INFERIOR POST WALL--ENLARGED LEFT ATRIAL CAVITY--NORMAL VALVES--CALCIFIC MITRAL VALVE ANNULUS, NO EFFUSION, NO THROMBUS M-MODE: MV: CALCIFIC MITRAL VALVE ANNULUS AV: NORMAL TV: NORMAL PV: CHAMBER SIZE: ENLARGED LEFT ATRIAL CAVITY WALL MOTION: MAYBE MILDLY HYPOKINETIC INFERIOR POST WALL PERICARDIUM: NORMAL INTERPRETATION: 1. 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 MAYBE MILDLY HYPOKINETIC INFERIOR WALL EJECTION FRACTION 50% 4. NORMAL VALVES MTDD
[2018-07-29] MEDS ORDERED: ZITHROMAX PO SCH (12:30)
--- NOTE | 2018-07-29 12:55 | MRI ---
EXAM: MRI brain without and with IV contrast. DATE: 29 July 2018. HISTORY: Dizziness. Confusion. TECHNIQUE: Sagittal T1W pre and postcontrast, axial T2W, axial FLAIR, axial T1W pre and postcontrast , axial DWI, coronal T1W postcontrast, and coronal T2W GRE sequences of the brain were obtained using 1.2 Selina magnet. CONTRAST: Omniscan - 18 ml IV. COMPARISON: CT head 26 September 2016. MRI brain 18 October 2016. FINDINGS: The ventricles, cisterns, many sulci (especially bilateral frontal lobes) and subarachnoid spaces are enlarged due to involutional change. No midline shift, mass effect or abnormal extra-axi al fluid collection is apparent. No acute infarct or hemorrhage is identified. A 2 x 3.4 x 2 mm, T1 W postcontrast bright focus in the left amygdala is best seen on axial image #9 and coronal image num tan [id number]. Extensive, mild prominence of Virchow-Charles spaces is demonstrated in both basal ganglia. B road areas of T2W/FLAIR hyperintensity are evident within the kandis. Moderate, confluent rim of T2W/F LAIR hyperintensity is observed in the white matter abutting each lateral ventricle. Multiple other 2-10 mm diameter, T2W/FLAIR bright foci are scattered within the arita radiata, centrum semiovale an d subcortical white matter bilaterally. Chronic lacunar infarcts in the right frontal arita radiata are redemonstrated. The hill - white matter differentiation is normal. No migration or diverticula tion abnormality is identified. No convincing evidence of mesial temporal sclerosis. The 7th/8th cr anial nerve complexes, cerebellopontine angles, and visible cervical spinal cord are normal. There i s no cerebellar tonsillar ectopia. The pituitary gland is overall normal in size, but has a slightly convex superior border anteriorly. Corpus callosum is normal in size, but the body is mildly bowed upward due to ventricular prominence. Left vertebral artery is dominant. Right vertebral artery is diminutive in size. Narrowing and slight signal abnormality in the anterior genu of the right cavern ous ICA may represent stenosis due to atherosclerotic disease. Flow voids are present in the major i ntracranial arteries and in the dural venous sinuses. No aneurysm, AVM or dural venous sinus thrombo sis is apparent. Appearance of the lens of each eye suggests prior cataract surgery. No the third o rbit abnormality is identified. The mastoid air cells are unremarkable. There is no acute sinusitis . No neck mass or lymphadenopathy is detected. Mild thickening of the inner table of the frontal ela ne appears benign. No calvarial neoplasm or acute fracture is evident. IMPRESSIONS: Unexpected findin. Tiny focus of apparent enhancement in the left amygdala vs artifact. Short interval follow-up MRI (3 months) recommended to exclude a true lesion and assess for rapid growth. 2. Moderate/marked cerebral and moderate brainstem leukomalacia is similar to September 2016. DDX: Sma ll vessel disease or chronic hypertensive encephalopathy is likely. Metabolic disorder, vasculitis, demyelinating disease might look similar. 3. No acute infarct, acute hemorrhage, or hydrocephalus. 4. Prominent Virchow-Charles spaces in each basal ganglia. 5. Moderate cerebral and minor cerebellar atrophy. 6. Old lacunar infarcts (x2) in the right frontal lobe. 7. Right > left cavernous ICA atherosclerosis. 8. Mild, benign hyperostosis frontalis interna. Note: Examination limited by patient motion artifacts.
[2018-07-29] MEDS: PROSCAR PO SCH (12:59)
[2018-07-29] MEDS: MULTIVITAMIN TABLET PO SCH (12:59)
[2018-07-29] MEDS: ZITHROMAX PO SCH (12:59)
[2018-07-29] MEDS: PLAVIX PO SCH (13:00)
[2018-07-29] MEDS: LOPRESSOR PO SCH ×2 (13:00→20:09)
[2018-07-29] MEDS: COZAAR PO SCH (13:00)
[2018-07-29] MEDS: CARDIZEM PO SCH ×5 (13:01→20:12)
--- NOTE | 2018-07-29 13:03 | DI ---
EXAM: GI and small-bowel follow-through HISTORY: Difficulty swallowing COMPARISON: None TECHNIQUE: Her GI and small-bowel follow-through was performed FINDINGS: Pipe Supervisor image demonstrates gallstones and vascular calcification and degenerative change in the spine and nonobstructive bowel gas pattern. Esophagus normal in caliber. No filling defect iden tified in the esophagus. Esophageal mucosal pattern grossly unremarkable, noting portions of the eso phagus demonstrate single contrast opacification, which limits evaluation. No reflux identified on r eal time examination. Stomach grossly normal without mass lesion or ulcer identified. Duodenum manny sly normal without mass lesion or ulcer identified. Small bowel follow-through was performed. Overh ead images obtained at 0, 30, 60, 120 minutes. No dilated loops small bowel. Small bowel mucosal pa ttern grossly unremarkable. Normal small bowel transit time with contrast reaching the colon at 120 minutes. IMPRESSION: 1. Unremarkable upper GI and small-bowel follow-through. 2. Cholelithiasis
[2018-07-29] MEDS: GLUCOPHAGE PO SCH ×2 (13:07→17:16)
[2018-07-29] MEDS: ASPIRIN EC PO SCH (13:12)
[2018-07-29] MEDS: LOVENOX SUBCUT SCH (13:20)
[2018-07-29] MEDS: HUMULIN R SUBCUT PRN ×2 (17:16→21:24)
[2018-07-29] MEDS: LEXAPRO PO SCH (20:10)
[2018-07-29] MEDS: ZOCOR PO SCH (20:11)
[2018-07-29] MEDS: VISTARIL INJ IM PRN (21:09)
[2018-07-29] MEDS: [UNRECOGNIZED DRUG - OTHER] PO SCH (21:11)
[2018-07-29] MEDS: LUTEIN PO SCH (21:11)
[2018-07-29] MEDS: LYCOPEN PO SCH (21:11)
[2018-07-29] MEDS: MULTIVIT MIN PO SCH (21:11)
[2018-07-30] MEDS: XOPENEX 1.25 MG NEB SCH ×4 (05:04→23:18)
[2018-07-30] MEDS: SOLU-CORTEF 250 MG IVP SCH ×3 (05:48→21:34)
[2018-07-30] MEDS: HUMULIN R SUBCUT PRN ×4 (05:50→21:39)
--- NOTE | 2018-07-30 08:24 | PCM.PROG ---
Attending Provider: ATTENDING PROVIDER: Dr. ABIMAEL LINO DATE OF SERVICE: 07/30/18 SUBJECTIVE: This 87 year old WHITE/ M was hospitalized 07/26/18 with atrial flutter and symptoms of CHF. Condition is improving. He is laying flat with no CHF symptoms. Atrial flutter/fibrillation average rate 82. MRI showed no acute findings, no infarct or hemorrhage. REVIEW OF SYSTEMS: CONSTITUTIONAL: No night sweats. No fatigue, malaise, lethargy. No fever or chills. HEENT: Eyes: No visual changes. No eye pain. No eye discharge. ENT: No runny nose. No epistaxis. No sinus pain. No odynophagia. No congestion. RESPIRATORY: No cough, no congestion. No hemoptysis. No shortness of breath. CARDIOVASCULAR: No angina symptoms. No CHF symptoms. No atypical chest pain for CAD. No palpitations. No orthopnea.. GASTROINTESTINAL: No abdominal pain. No nausea or vomiting. No diarrhea or constipation. No hematemesis. No hematochezia. GENITOURINARY: No urgency. No frequency. No dysuria. No hematuria. No obstructive symptoms. No discharge. No pain. No significant abnormal bleeding. MUSCULOSKELETAL: No musculoskeletal pain; no joint swelling. NEUROLOGICAL: Awake, alert, oriented to time, place and person. No headache. No neck pain. No syncope. No seizures. No dizziness. PSYCHIATRIC: Not anxious. No depression. No suicidal thoughts. No homicidal thoughts. SKIN: No rash. No lesions. No wounds. ENDOCRINE: No unexplained weight loss. No weight gain. HEMATOLOGIC/LYMPHATIC: No anemia. No purpura. No petechiae. No prolonged or excessive bleeding. No palpable lymph nodes. PHYSICAL EXAMINATION: GENERAL: The patient is awake, alert and oriented, lying in bed in no distress. VITAL SIGNS: Temperature 97.9 F, Pulse 81, Respiratory Rate 18, BP 135/84, Pulse Ox 95% HEENT: Head normocephalic, atraumatic. Eyes: Extraocular muscles are intact. Pupils are equal, round and reactive to light and accommodation. Ears: No lesions. Nose appeared normal. Throat: No exudate or erythema. NECK: Supple. No JVD, no carotid bruit. No lymphadenopathy or thyromegaly. LUNGS: Decreased breath sounds. Clear to auscultation. Percussion note normal. Chest symmetrical. HEART: Irregular heart rate. S1, S2, no S3. No murmurs. No cyanosis or clubbing. No ascites. Pulses: Dorsalis pedis and posterior tibial pulses +1 to +2 both sides. ABDOMEN: Soft. Non-tender. Bowel sounds active. No CVA tenderness. No mass felt. EXTREMITIES: No edema. Full range of motion of all extremities, equal. NEUROLOGIC: No focal deficit. Cranial nerves II through XII are grossly intact. No headache, no double vision or headache. SKIN: Warm and dry. Intact. Turgor-normal. LYMPHATIC: No palpable lymph nodes/no lymphedema. MUSCULOSKELETAL: Normal joints with no swelling. Muscle tone is normal. LAB REVIEW: 07/30/18 04:10 07/30/18 04:10 07/30/18 04:10: Sodium 137.7, Potassium 3.73, Chloride 99.2, Carbon Dioxide 30.6 H, Anion Gap 11.63, BUN 33.0 H, Creatinine 1.11 H, Estimated GFR (MDRD) 63.00, BUN/Creatinine Ratio 29.72, Glucose 272.9 H D, Calcium 8.47, Total Bilirubin 0.68, AST 48.6 D, ALT 38.2, Alkaline Phosphatase 67.2, Total Protein 6.12 L, Albumin 3.37 L, Globulin 2.75, Albumin/Globulin Ratio 1.22 07/30/18 04:10: WBC 9.85, RBC 3.61 L, Hgb 10.3 L, Hct 30.7 L, MCV 85.0, MCH 28.5 , MCHC 33.6, RDW Coeff of Daniel 13.0, Plt Count 221, Immature Gran % (Auto) 2.4, Neut % (Auto) 67.3, Lymph % (Auto) 25.1, [place] % (Auto) 5.1, Eos % (Auto) 0.0, Baso % (Auto) 0.1, Immature Gran # (Auto) 0.2, Neut # (Auto) 6.6, Lymph # (Auto ) 2.5, [place] # (Auto) 0.5, Eos # (Auto) 0.0, Baso # (Auto) 0.0 ASSESSMENT: Please see below. 1. Atrial flutter/fib, under control 2. CHF under control 3. Pneumonitis, better 4. Hypertension 5. Dementia 6. History of CVA PLAN: 1. Discontinue Plavix 2. Discontinue Lovenox 3. Start Eliquis 5mg twice a day 4. Discontinue aspirin The patient is also considered for swing bed. Plan and coordination of the patient's care discussed in the presence of [employer] and nurse. CONDITION: Stable SCRIBED BY: Jake CROWLEY scribed while in presence of service performed by Dr. ABIMAEL LINO on 07/30/18 ([id number])
[2018-07-30] MEDS: CARDIZEM PO SCH ×4 (08:33→21:42)
[2018-07-30] MEDS: COZAAR PO SCH (08:34)
[2018-07-30] MEDS: LOPRESSOR PO SCH ×2 (08:35→21:42)
[2018-07-30] MEDS: GLUCOPHAGE PO SCH ×2 (08:35→16:46)
[2018-07-30] MEDS: PROSCAR PO SCH (08:36)
[2018-07-30] MEDS: MULTIVITAMIN TABLET PO SCH (08:36)
[2018-07-30] MEDS: ASPIRIN EC PO SCH (08:37)
[2018-07-30] MEDS: ELIQUIS PO SCH ×2 (08:39→21:37)
--- NOTE | 2018-07-30 11:24 | HP ---
DATE OF SERVICE: 07/26/18 HISTORY OF PRESENT ILLNESS: 87-year-old male who presented with cough and congestion with whitish sputum times one week. He has shortness of breath with exertion. He has not been feeling good times one week. No symptoms of CHF or CAD. PAST MEDICAL HISTORY: Dizziness Diabetes mellitus type 2 Atrial flutter Right CVA History of thalamic infarct Dementia History of nasal bone fracture PENNY DJD spine Metabolic syndrome CKD Stage 2 TIA CAD with calcification PAST SURGICAL HISTORY: Cataract removal in 2010/corneal transplant REVIEW OF SYSTEMS: CONSTITUTIONAL: Fever and fatigue. HEENT: No sinus drainage, no sore throat. RESPIRATORY: Cough with whitish sputum. CARDIOVASCULAR: Positive for palpitations and shortness of breath. No atypical chest pain for coronary artery disease. No angina, CHF symptoms. GASTROINTESTINAL: No melena or abdominal pain. No GERD. GENITOURINARY: No hematuria, no polyuria. COURT SECURITY OFFICER: No blackout, no dizziness, no headache, no double vision. MUSCULOSKELETAL: Osteoarthritis pain, no joint swelling. ENDOCRINE: No weight loss, no weight gain. SKIN: Not dry, no rash. PSYCHIATRIC: Not anxious, no depression, no suicidal thoughts, no homicidal thoughts. SOCIAL HISTORY: Nonsmoker. . Four children. Retired. No alcohol use. No history of illicit drug use. FAMILY HISTORY: Father . Mother . One sister living, two . MEDICATIONS: Losartan 100 mg p.o. 1/2 day Metformin one p.o. two times per day with morning and evening meals\\ Metoprolol one p.o. two times per day with meals Simvastatin 40 mg p.o. once daily in the evening Lexapro 10 mg 1/2 tablet daily once daily Cozaar 100 mg p.o. once daily Plavix 75 mg one p.o. daily Finasteride 5 mg one p.o. daily Vitamin ALLERGIES: NKDA PHYSICAL EXAMINATION: V/S: Pulse 124, BP 118/72, temperature 98.5, 02 sat 98%. Height 6'0", BMI 29.1, Weight 202.6. GENERAL APPEARANCE: Oriented times three. HEENT: Normal. NECK: No JVP, no bruits. RESPIRATORY: Lungs have decreased breath sounds with creps. CARDIOVASCULAR: S1, S2, Rate 140/min. No cyanosis, clubbing. No ascites. GI/ABDOMEN: No tenderness. Bowel sounds are active. EXTREMITIES: Trace to 1+ edema, pulses +1, equal. COURT SECURITY OFFICER: Deep tendon reflexes, sensory, motor and gait all normal. RECTAL/PROSTATE: Colonoscopy Dr. Edwards 2009. Prostate 08/16 (2.5). ASSESSMENT: 1. ATRIAL FLUTTER WITH 2:1 2. CHF/ACUTE BRONCHITIS 3. DIZZINESS 4. DIABETES MELLITUS TYPE 2 01/16 (7.1) 5. RIGHT CVA 01/15 DR. MONZON 6. HISTORY OF THALAMIC INFARCT 7. DEMENTIA 8. HISTORY OF NASAL BONE FRACTURE 9. PENNY 10. DJD SPINE 11. METABOLIC SYNDROME 12. 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 TIA 15. CORONARY ARTERY DISEASE WITH CALCIFICATION 16. 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 OSTEOARTHRITIS KNEES, DR. Dakota LINO PLAN: 1. Routine telemetry orders 2. Daily CBC, CMP 3. BNP 4. T4, TSH 5. Lanoxin 0.25 mg IV now 6. ABG STAT 7. IV Lasix 40 mg STAT 8. Continue all home medications 9. Solu-Cortef IV 125 mg now and q.8 hourly 10. Oxygen 2L/cannula/min TIME SPENT: More than 70 minutes. MTDD
--- NOTE | 2018-07-30 13:24 | PN ---
DATE OF SERVICE: 07/27/18 SUBJECTIVE: The patient was seen today, both daughter's are present in the room. The patient is oriented to person and place. He recognized me but he is talking about things that never happened. Again has lucid interval. 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 He had sudden onset of amnesia from which he has recovered some. This time he was hospitalized with atrial fibrillation with symptoms of CHF. He may have some symptoms of bronchitis, we don' know how long he had palpitation but according to the daughter he hasn't been feeling well for one week. He denied of any palpitations. REVIEW OF SYSTEMS: Practically all negative according to the patient. CONSTITUTIONAL: No night sweats. No fatigue, malaise, lethargy. No fever or chills. HEENT: Eyes: No visual changes. No eye pain. No eye discharge. ENT: No runny nose. No epistaxis. No sinus pain. No sore throat. No odynophagia. No congestion. RESPIRATORY: No cough, no congestion. No hemoptysis. No shortness of breath. CARDIOVASCULAR: No angina symptoms. No CHF symptoms. No atypical chest pain for CAD. No palpitations. No PND. No orthopnea. GASTROINTESTINAL: No abdominal pain. No nausea or vomiting. No diarrhea or constipation. No hematemesis. No hematochezia. GENITOURINARY: No urgency. No frequency. No dysuria. No hematuria. No obstructive symptoms. No discharge. No pain. No significant abnormal bleeding. MUSCULOSKELETAL: No musculoskeletal pain; no joint swelling. NEUROLOGICAL: No headache. No neck pain. No syncope. No seizures. No dizziness. PSYCHIATRIC: Not anxious. No depression. No suicidal thoughts. No homicidal thoughts. SKIN: No rash. No lesions. No wounds. ENDOCRINE: No unexplained weight loss. No weight gain. HEMATOLOGIC/LYMPHATIC: No anemia. No purpura. No petechiae. No prolonged or excessive bleeding. No palpable lymph nodes. PHYSICAL EXAMINATION: GENERAL: The patient is oriented to time, place and person. HEENT: Head normocephalic, atraumatic. Eyes: Extraocular muscles are intact. Pupils are equal, round and reactive to light and accommodation. Ears: No lesions. Nose appeared normal. Throat: No exudate or erythema. NECK: Supple. No JVP, no carotid bruit. No lymphadenopathy or thyromegaly. LUNGS: Clear to auscultation. Percussion note normal. Chest symmetrical. HEART: Rate 100 per minute. S1, S2, no S3. No murmurs. No cyanosis or clubbing. No ascites. Pulses: Dorsalis pedis and posterior tibial pulses +1 to +2 bilaterally. ABDOMEN: Soft. Nontender. Bowel sounds active. No CVA tenderness. No mass felt. EXTREMITIES: Trace edema. Full range of motion of all extremities, equal. NEUROLOGIC: No focal deficit. Cranial nerves II through XII are grossly intact. No headache, no double vision or headache. SKIN: Not dry. Intact. Turgor - normal. LYMPHATIC: No palpable lymph nodes/no lymphedema. MUSCULOSKELETAL: Normal joints with no swelling. Muscle tone is normal. ASSESSMENT: 1. Atrial fibrillation with rapid ventricular response 2. Elevated cardiac markers with EKG showing initially inferior wall but the last two EKG shows no evidence of inferior wall 3. History of CVA 4. Hypertension 5. Dyslipidemia 6. Dementia PLAN: 1. Cardizem 60mg twice a day 2. Continue Lopressor 100mg twice a day 3. Will give dose of Lanoxin 0.125 4. Lanoxin level in the morning 5. Family and the patient' don't want anything to be done in a way of invasive workup. The patient declined the daughters same opinion about it. CONDITION: Stable for now. The patient had an echocardiogram done which showed LV ejection fraction of 45- 50% with LVH. LA cavity is enlarged which is around 4.3. Complications of atrial fibrillation discussed in detail. The patient's ERICA VASC score is more than 5. Very likely he will end up on Eliquis 5mg twice a day. At the present time he is on Lovenox. The patient is going to be started on Zithromax 500mg daily for 3 days because of the possibility of pneumonia by x-ray but clinically he does not have. He has mild bronchitis, congestion likely from CHF. CHF seems to be from diastolic heart failure. TIME SPENT: More than 30 minutes. Plan and coordination of the patient's care discussed in the presence of nurse. ERICA
--- NOTE | 2018-07-30 14:43 | RS.PTINEVL ---
Subjective - Patient information Date of Evaluation: 07/30/18 Date of Arrival on Unit: 07/26/18 Admitted From:: Home Diagnosis: atrial flutter, CHF, pneumonitis Usual Living Arrangement: Alone Living Arrangement Comments: pt lives in split level home. Home Environment: House, Stairs (few), No rail Medical History: Hypertension, CVA/TIA (2007, 2017), Dementia, Diabetes Medical History Comments:: echo 07/29/18: L ventricular hypertrophy, calcific mitral valve annulus LATEX ALLERGY?: No Medications: see chart Subjective Information/ Patient Comments:: pt states he does not feel he needs an assistive device. pt also states "I am going to get up and go brush my teeth in bathroom in a little while." I explained to pt that he needs to call and he states " I think I will be fine, if I need something I will call you." Reinforce fall precautions and pt continued to say " I am fine." (notified nursing of conversation) - Level of function Prior to this admission, the patient could do the following:: Independent Selfcare, Independent ADL's, Independent Ambulation, Perform Velvet Steamer/ Cooking, Drive, Participated in Social Activities Outside home Current Level of Function: Independent Current Equipment Used at Home: none Interventions - Objective Patient Orientation: Person, Place Current Interventions: Telemetry Observation: pt with edema BLE Range of Motion - ROM Right Upper Extremity AROM: WFL's Left Upper Extremity AROM: WFL's Right Lower Extremity AROM: WFL's Left Lower Extremity AROM: WFL's Muscle Strength - Muscle Strength Right Upper Extremity Strength: Mild Weakness (grossly 4+/5) Left Upper Extremity Strength: Mild Weakness (grossly 4+/5) Right Lower Extremity Strength: Mild Weakness (hip flex 4/5, knee flex/ext 4+/5 , ankle DF/PF 4+/5) Left Lower Extremity Strength: Mild Weakness (hip flex 4/5, knee flex/ext 4+/5, ankle DF/PF 4+/5) Sensation - Sensation Right Upper Extremity Sensation: Intact/Normal Left Upper Extremity Sensation: Intact/Normal Right Lower Extremity Sensation: Intact/Normal Left Lower Extremity Sensation: Intact/Normal Palpation Palpation Findings: None/Normal Balance - Sitting Balance and Reactions Static Sitting Balance: Good Dynamic Sitting Balance: Good - Standing Balance and Reactions Static Standing Balance: Fair Dynamic Standing Balance: Fair Standing Equilibrium Reactions: Delayed Left, Delayed Right Standing Protective Reactions: Delayed Left, Delayed Right - Comments Balance Assessment Comments: tinetti balance score: 23/28 which is consistent with moderate risk of falls. Functional Mobility - Bed Mobility Rolling R/L: Independent Supine to Sit: Supervision - Transfers Sit to Stand: CGA Stand to Sit: Supervision - Safety Awareness Safety Awareness: Fair NATAN INDEX SCORE: n/a Ambulation - Ambulation Assistive Device Used: Gait belt Orthotic/Prosthetic Device: No Distance: 140ft Assistance needed with Ambulation: CGA Gait Deviations: Forward posture, Short stride Ambulation Comments: pt with no episodes of scissoring this visit. no LOB, pt somewhat SOA with amb. Factors Affecting Ambulation: Weakness, Decreased Safety, Limited Endurance Treatment time - Time with patient Length of Evaluation: 21 Total treatment time: 24 Patient Education - Education Patient Education: Activity Modification, Education of Plan of Care Teaching Recipient: Patient Teaching Methods: Discussion Comments: discussion with pt regarding fall precautions as well as safety with transfers and gait. pt requires reinforcement due to cognitive deficit. Assessment - Assessment Problem List:: Decreased level of function, Requires training/education, Decreased safety/Risk of falls, Cognitive status limits abilities Rehab Potential: Good Further Therapy Indicated?: Yes Candidate for Swing Bed for Therapy Services?: Feel pt may not be a candidate for swing bed due to high functional level. Also nursing reports pt was independent with shower and dressing. Evaluation Complexity: HISTORY: Medium (CHF, HTN, dementia, age, CVA), EXAM OF BODY SYSTEMS: Medium (strength, balance, gait), CLINICAL PRESENTATION: Medium, CLINICAL DECISION MAKING: Medium Short Term Goals GOAL #1: pt independent with sup to/from sit Goal to be met by: 07/31/18 GOAL #2: Sit to/from stand independently Goal to be met by: 07/31/18 Reverberatory Furnace Operator Goals GOAL #1: pt ascend/descend 3 steps w/w/o handrail SBA Goal to be met by: 08/01/18 GOAL #2: pt amb functional household distances with SBA with no LOB Goal to be met by: 08/01/18 Plan Plan of Care: Therapeutic EX (provide pt with written HEP), Therapeutic Activity Other:: gait training Frequency of Treatment: 1-2 X day, as tolerated Duration of Treatment: 2 days Anticipated Discharge Destination: home possibly Treatment Diagnosis (ICD 10 Codes): R 26.81 balance impaired. M62.81 muscle weakness Has the Physician been added for Co-signature?: Yes
[2018-07-30] MEDS: LEXAPRO PO SCH (21:43)
[2018-07-30] MEDS: ZOCOR PO SCH (21:44)
[2018-07-30] MEDS: MULTIVIT MIN PO SCH (21:45)
[2018-07-30] MEDS: LYCOPEN PO SCH (21:45)
[2018-07-30] MEDS: LUTEIN PO SCH (21:45)
[2018-07-30] MEDS: [UNRECOGNIZED DRUG - OTHER] PO SCH (21:45)
[2018-07-31] MEDS: XOPENEX 1.25 MG NEB SCH ×4 (04:55→22:43)
[2018-07-31] MEDS: SOLU-CORTEF 250 MG IVP SCH (06:11)
[2018-07-31] MEDS: HUMULIN R SUBCUT PRN ×3 (06:18→17:03)
[2018-07-31] MEDS: CARDIZEM PO SCH ×4 (08:42→21:04)
[2018-07-31] MEDS: COZAAR PO SCH (08:43)
[2018-07-31] MEDS: LOPRESSOR PO SCH ×2 (08:44→21:04)
[2018-07-31] MEDS: GLUCOPHAGE PO SCH ×2 (08:44→17:02)
[2018-07-31] MEDS: MULTIVITAMIN TABLET PO SCH (08:44)
[2018-07-31] MEDS: PROSCAR PO SCH (08:44)
[2018-07-31] MEDS: ELIQUIS PO SCH ×2 (08:45→21:05)
--- NOTE | 2018-07-31 09:51 | PCM.PROG ---
Attending Provider: ATTENDING PROVIDER: Dr. ABIMAEL LINO This patient is seen with Marie Galindo, Nurse Practitioner. DATE OF SERVICE: 07/31/18 SUBJECTIVE: This 87 year old WHITE/ M was hospitalized 07/26/18. The patient is resting comfortably. The patient's cough has improved. He has been up and about on his own. Still with bouts of confusion which is normal. Eating well. REVIEW OF SYSTEMS: CONSTITUTIONAL: No night sweats. No fatigue, malaise, lethargy. No fever or chills. HEENT: Eyes: No visual changes. No eye pain. No eye discharge. ENT: No runny nose. No epistaxis. No sinus pain. No odynophagia. No congestion. RESPIRATORY: Cough, no congestion. No hemoptysis. No shortness of breath. CARDIOVASCULAR: No angina symptoms. No CHF symptoms. No atypical chest pain for CAD. No palpitations. No orthopnea.. GASTROINTESTINAL: No abdominal pain. No nausea or vomiting. No diarrhea or constipation. No hematemesis. No hematochezia. GENITOURINARY: No urgency. No frequency. No dysuria. No hematuria. No obstructive symptoms. No discharge. No pain. No significant abnormal bleeding. MUSCULOSKELETAL: No musculoskeletal pain; no joint swelling. NEUROLOGICAL: Awake, alert, oriented to time, place and person. No headache. No neck pain. No syncope. No seizures. No dizziness. PSYCHIATRIC: Not anxious. No depression. No suicidal thoughts. No homicidal thoughts. Confusion. SKIN: No rash. No lesions. No wounds. ENDOCRINE: No unexplained weight loss. No weight gain. HEMATOLOGIC/LYMPHATIC: No anemia. No purpura. No petechiae. No prolonged or excessive bleeding. No palpable lymph nodes. PHYSICAL EXAMINATION: GENERAL: The patient is awake, alert and oriented to place and person, sitting in bed in no distress. VITAL SIGNS: Temperature 97.8 F, Pulse 94, Respiratory Rate 20, BP 145/91, Pulse Ox 96% HEENT: Head normocephalic, atraumatic. Eyes: Extraocular muscles are intact. Pupils are equal, round and reactive to light and accommodation. Ears: No lesions. Nose appeared normal. Throat: No exudate or erythema. NECK: Supple. No JVD, no carotid bruit. No lymphadenopathy or thyromegaly. LUNGS: Clear to auscultation. Percussion note normal. Chest symmetrical. HEART: Irregular heart rate. S1, S2, no S3. No murmurs. No cyanosis or clubbing. No ascites. Pulses: Dorsalis pedis and posterior tibial pulses +1 to +2 both sides. ABDOMEN: Soft. Non-tender. Bowel sounds active. No CVA tenderness. No mass felt. EXTREMITIES: No edema. Full range of motion of all extremities, equal. NEUROLOGIC: No focal deficit. Cranial nerves II through XII are grossly intact. No headache, no double vision or headache. SKIN: Not dry. Intact. Turgor-normal. LYMPHATIC: No palpable lymph nodes/no lymphedema. MUSCULOSKELETAL: Normal joints with no swelling. Muscle tone is normal. LAB REVIEW: 07/31/18 04:35 07/31/18 04:35 07/31/18 04:35: Sodium 138.3, Potassium 3.52, Chloride 98.8, Carbon Dioxide 30.0 , Anion Gap 13.02, BUN 31.3 H, Creatinine 1.11 H, Estimated GFR (MDRD) 63.00, BUN/Creatinine Ratio 28.19, Glucose 252.6 H, Calcium 8.66, Total Bilirubin 0.73 , AST 33.7, ALT 36.2, Alkaline Phosphatase 73.2, Total Protein 6.14 L, Albumin 3.41 L, Globulin 2.73, Albumin/Globulin Ratio 1.24 07/31/18 04:35: WBC 11.54 H, RBC 3.83 L, Hgb 10.8 L, Hct 32.3 L, MCV 84.3, MCH 28.2, MCHC 33.4, RDW Coeff of Daniel 13.0, Plt Count 265, Immature Gran % (Auto) 2.5, Neut % (Auto) 66.7, Lymph % (Auto) 26.3, [place] % (Auto) 4.4, Eos % (Auto) 0.0, Baso % (Auto) 0.1, Immature Gran # (Auto) 0.3, Neut # (Auto) 7.7 H, Lymph # (Auto) 3.0, [place] # (Auto) 0.5, Eos # (Auto) 0.0, Baso # (Auto) 0.0 ASSESSMENT: Please see below. 1. Atrial fibrillation 2. Hypertension 3. CHF -seems to be resolving 4. Acute bronchitis seems to be resolving PLAN: 1. Continue monitor blood pressure today 2. Prednisone 10mg twice a day 3. Discontinue Solu-Cortef in hopes to improve glucose 4. Home health for nursing care, CHF, weights , glucose monitoring and med monitoring. 5. Anticipate discharge home tomorrow. Plan and coordination of the patient's care discussed in the presence of Acid Patroller and nurse. SCRIBED BY: ADAM AYALA Open Claims Representative scribed while in presence of service performed by Dr. Lino/Marie Galindo APRN on 07/31/18 ([id number])
--- NOTE | 2018-07-31 11:49 | PN ---
DATE OF SERVICE: 07/29/18 SUBJECTIVE: The patient was seen and examined with the nurse practitioner. The patient had somewhat more congestion. He will be given IV Lasix. Cardizem will be increased to 90 twice a day. The patient's medical status is stable. Atrial fib has average rate of 100/min, needs to be around 80 to 90. No real CHF symptoms but chest x-ray shows possibility of vascular congestion and is on antibiotics for possibility of early pneumonia. CONDITION: Stable. TIME SPENT: More than 30 minutes. Plan and coordination of the patient's care discussed in the presence of nurse. ERICA
--- NOTE | 2018-07-31 13:43 | PN ---
DATE OF SERVICE: 07/28/18 SUBJECTIVE: Daughters were present today. He was seen and examined. 87-year-old white male hospitalized with atrial flutter/fib. The rate has been slowing down, at night it goes down 80 to 90. During the daytime it is 110. Lanoxin level is 0.6. REVIEW OF SYSTEMS: CONSTITUTIONAL: No night sweats. No fatigue, malaise, lethargy. No fever or chills. HEENT: Eyes: No visual changes. No eye pain. No eye discharge. ENT: No runny nose. No epistaxis. No sinus pain. No sore throat. No odynophagia. No congestion. RESPIRATORY: No cough, no congestion. No hemoptysis. No shortness of breath. CARDIOVASCULAR: No angina symptoms. No CHF symptoms. No atypical chest pain for CAD. No palpitations. No PND. No orthopnea. GASTROINTESTINAL: Appetite is excellent. No abdominal pain. No nausea or vomiting. No diarrhea or constipation. No hematemesis. No hematochezia. GENITOURINARY: No urgency. No frequency. No dysuria. No hematuria. No obstructive symptoms. No discharge. No pain. No significant abnormal bleeding. MUSCULOSKELETAL: No musculoskeletal pain; no joint swelling. NEUROLOGICAL: No headache. No neck pain. No syncope. No seizures. No dizziness. PSYCHIATRIC: Not anxious. No depression. No suicidal thoughts. No homicidal thoughts. SKIN: No rash. No lesions. No wounds. ENDOCRINE: No unexplained weight loss. No weight gain. HEMATOLOGIC/LYMPHATIC: No anemia. No purpura. No petechiae. No prolonged or excessive bleeding. No palpable lymph nodes. PHYSICAL EXAMINATION: GENERAL: The patient is oriented to place and person. HEENT: Head normocephalic, atraumatic. Eyes: Extraocular muscles are intact. Pupils are equal, round and reactive to light and accommodation. Ears: No lesions. Nose appeared normal. Throat: No exudate or erythema. NECK: Supple. No JVD, no carotid bruit. No lymphadenopathy or thyromegaly. LUNGS: Decreased breath sounds but clear to auscultation. Percussion note normal. Chest symmetrical. HEART: S1, S2 irregular. No murmur. No cyanosis or clubbing. No ascites. Pulses: Dorsalis pedis and posterior tibial pulses +1 to +2 bilaterally. ABDOMEN: Soft. Nontender. Bowel sounds active. No CVA tenderness. No mass felt. EXTREMITIES: No edema. Full range of motion of all extremities, equal. NEUROLOGIC: No focal deficit. Cranial nerves II through XII are grossly intact. No headache, no double vision or headache. SKIN: Not dry. Intact. Turgor - normal. LYMPHATIC: No palpable lymph nodes/no lymphedema. MUSCULOSKELETAL: Normal joints with no swelling. Muscle tone is normal. LABS: T4, TSH negative. ASSESSMENT: 1. ATRIAL FIBRILLATION/FLUTTER 2. CHF, DIASTOLIC TYPE 3. HISTORY OF CVA 4. HYPERTENSION 5. DYSLIPIDEMIA PLAN: 1. Continue Cardizem 60 mg b.i.d., have to increase the dose. 2. Lanoxin small dose 0.125 IV today. 3. Also treated for acute bronchitis with Zithromax. The patient declined to have evaluation by operating room registered nurse or cardioversion. He wants to be left alone. Eliquis discussed with the family. They are receptive of that. I think it would help overall with history of CVA. Advised not to take any nonsteroidal antiinflammatory with Eliquis. Eliquis side effects with intracranial bleed and GI bleed discussed. The patient's atrial fibrillation with CHADS2 score is more than 5. He is high risk for stroke. He is more or less functional except for early dementia. ADDITIONAL DICTATION: The patient had acute respiratory failure on admission with p02 of 58, pc02 of 28, pH 7.45 with 91% saturation. The patient's T4 and TSH were normal. BNP was 5 ,430. TSH normal. CK-MB was 5.3 which was borderline with CK of 171 which was one point higher than normal. Troponin was 2.3 elevated. The patient had possibility of inferior wall injury. The following day the patient's EKG probably normal, done twice. It is likely that the patient had ischemic damage because of atrial fibrillation with rapid ventricular response. We don't know how long he was in atrial fibrillation with rapid ventricular response. According to the family he was not feeling good for 7 days. The patient never had any chest pain, chest tightness. He was feeling tired and fatigued. No PND, no orthopnea but complained of shortness of breath. After asking him, he admitted to being more short of breath. These tests were performed on 07/26/18. CONDITION: Improving. TIME SPENT: More than 30 minutes. Plan and coordination of the patient's care discussed in the presence of nurse. ERICA
[2018-07-31] MEDS: PREDNISONE PO SCH (17:03)
[2018-07-31] MEDS: ZOCOR PO SCH (21:05)
[2018-07-31] MEDS: LEXAPRO PO SCH (21:05)
[2018-08-01] MEDS: XOPENEX 1.25 MG NEB SCH ×2 (04:54→11:07)
[2018-08-01] MEDS: LYCOPEN PO SCH (05:17)
[2018-08-01] MEDS: MULTIVIT MIN PO SCH (05:17)
[2018-08-01] MEDS: [UNRECOGNIZED DRUG - OTHER] PO SCH (05:17)
[2018-08-01] MEDS: LUTEIN PO SCH (05:17)
[2018-08-01] MEDS: HUMULIN R SUBCUT PRN (06:13)
[2018-08-01] MEDS ORDERED: K-DUR PO STA (08:16)
[2018-08-01] MEDS ORDERED: XANAX PO STA (08:17)
[2018-08-01] MEDS: CARDIZEM PO SCH ×2 (08:49→08:50)
[2018-08-01] MEDS: LOPRESSOR PO SCH (08:49)
[2018-08-01] MEDS: GLUCOPHAGE PO SCH (08:50)
[2018-08-01] MEDS: MULTIVITAMIN TABLET PO SCH (08:50)
[2018-08-01] MEDS: PROSCAR PO SCH (08:50)
[2018-08-01] MEDS: PREDNISONE PO SCH (08:50)
[2018-08-01] MEDS: COZAAR PO SCH (08:51)
[2018-08-01] MEDS: ELIQUIS PO SCH (08:51)
--- NOTE | 2018-08-01 09:42 | PCM.PROG ---
Attending Provider: ATTENDING PROVIDER: Dr. ABIMAEL SINGH This patient is seen with Marie Galindo, Nurse Practitioner. DATE OF SERVICE: 08/01/18 SUBJECTIVE: This 87 year old WHITE/ M was hospitalized 07/26/18. The patient is lying in bed resting comfortably. He has had some anxiety through the night about going to [facility] to stay, which is likely the cause of elevated blood pressure. Will give Xanax this a.m. and see if it helps. REVIEW OF SYSTEMS: CONSTITUTIONAL: Weakness. No night sweats. No fatigue, malaise, lethargy. No fever or chills. HEENT: Eyes: No visual changes. No eye pain. No eye discharge. ENT: No runny nose. No epistaxis. No sinus pain. No odynophagia. No congestion. RESPIRATORY: Cough. No congestion. No hemoptysis. No shortness of breath. CARDIOVASCULAR: No angina symptoms. No CHF symptoms. No atypical chest pain for CAD. No palpitations. No orthopnea.. GASTROINTESTINAL: No abdominal pain. No nausea or vomiting. No diarrhea or constipation. No hematemesis. No hematochezia. GENITOURINARY: No urgency. No frequency. No dysuria. No hematuria. No obstructive symptoms. No discharge. No pain. No significant abnormal bleeding. MUSCULOSKELETAL: No musculoskeletal pain; no joint swelling. NEUROLOGICAL: Awake, alert, oriented to place and person. No headache. No neck pain. No syncope. No seizures. No dizziness. PSYCHIATRIC: Not anxious. No depression. No suicidal thoughts. No homicidal thoughts. SKIN: No rash. No lesions. No wounds. ENDOCRINE: No unexplained weight loss. No weight gain. HEMATOLOGIC/LYMPHATIC: No anemia. No purpura. No petechiae. No prolonged or excessive bleeding. No palpable lymph nodes. PHYSICAL EXAMINATION: GENERAL: The patient is awake, alert and oriented, lying in bed in no distress. VITAL SIGNS: Temperature 98.5 F, Pulse 90, Respiratory Rate 20, BP 171/99, Pulse Ox 100% HEENT: Head normocephalic, atraumatic. Eyes: Extraocular muscles are intact. Pupils are equal, round and reactive to light and accommodation. Ears: No lesions. Nose appeared normal. Throat: No exudate or erythema. NECK: Supple. No JVD, no carotid bruit. No lymphadenopathy or thyromegaly. LUNGS: Diminished breath sounds. Clear to auscultation. Percussion note normal. Chest symmetrical. HEART: S1, S2, no S3. No murmurs. No cyanosis or clubbing. No ascites. Pulses: Dorsalis pedis and posterior tibial pulses +1 to +2 both sides. ABDOMEN: Soft. Non-tender. Bowel sounds active. No CVA tenderness. No mass felt. EXTREMITIES: No edema. Full range of motion of all extremities, equal. NEUROLOGIC: No focal deficit. Cranial nerves II through XII are grossly intact. No headache, no double vision or headache. SKIN: Not dry. Intact. Turgor-normal. LYMPHATIC: No palpable lymph nodes/no lymphedema. MUSCULOSKELETAL: Normal joints with no swelling. Muscle tone is normal. LAB REVIEW: 08/01/18 05:05 08/01/18 05:05 08/01/18 05:05: WBC 12.74 H, RBC 4.13 L, Hgb 11.5 L, Hct 35.0 L, MCV 84.7, MCH 27.8, MCHC 32.9, RDW Coeff of Daniel 13.2, Plt Count 276, Immature Gran % (Auto) 1.7, Neut % (Auto) 64.6, Lymph % (Auto) 28.5, Scurry % (Auto) 4.8, Eos % (Auto) 0.2, Baso % (Auto) 0.2, Immature Gran # (Auto) 0.2, Neut # (Auto) 8.2 H, Lymph # (Auto) 3.6 H, Scurry # (Auto) 0.6, Eos # (Auto) 0.0, Baso # (Auto) 0.0 08/01/18 05:05: Sodium 139.6, Potassium 3.22 L, Chloride 99.7, Carbon Dioxide 31.1 H, Anion Gap 12.02, BUN 27.0 H, Creatinine 1.11 H, Estimated GFR (MDRD) 63.00, BUN/Creatinine Ratio 24.32, Glucose 272.7 H, Calcium 8.65, Total Bilirubin 0.74, AST 41.1, ALT 37.8, Alkaline Phosphatase 73.7, Total Protein 6.05 L, Albumin 3.36 L, Globulin 2.69, Albumin/Globulin Ratio 1.24 ASSESSMENT: 1. Acute bronchitis seems to be resolving 2. Atrial fibrillation controlled. 3. Hypertension. 4. CHF seems to be resolving. 5. Anxiety 6. Generalized weakness. PLAN: 1. UA 2. Xanax 0.25 mg b.i.d. p.r.n. 3. Recheck blood pressure 4. Anticipate d/c today 5. Potassium 40 mEq before discharge 6. Home Health for nursing and PT due to generalized weakness, medication administration and confusion. 7. The patient will be seen in followup next week. 8. The risks of bleeding associated with Eliquis discussed. Instructed to not take any NSAIDS. Plan and coordination of the patient's care discussed in the presence of Water Meter Installer and nurse. CONDITION: Stable SCRIBED BY: ROC INGRAM Claim Manager scribed while in presence of service performed by Dr. Singh/Marie Galindo APRN on 08/01/18 ([id number])
[2018-08-01 10:18] VITALS: TEMP 97.9
--- NOTE | 2018-08-01 10:26 | CM.DICTOOL ---
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 THOSE VALUES WERE T-97.9, HR 84, BP 134/82, RR 16, AND PULSE OX 96% ON ROOM AIR TAKE THESE MEDICATIONS AT HOME Alprazolam (Xanax) 0.25 mg PO BID PRN PRN Reason: Anxiety Apixaban (Eliquis) 5 mg PO BID [facility] Last Admin: 08/01/18 08:51 Dose: 5 mg Diltiazem HCl (Cardizem) 30 mg PO Q12HR [facility] Last Admin: 08/01/18 08:49 Dose: 30 mg Diltiazem HCl (Cardizem) 60 mg PO Q12HR [facility] Last Admin: 08/01/18 08:50 Dose: 60 mg Escitalopram Oxalate (Lexapro) 5 mg PO BEDTIME [facility] Last Admin: 07/31/18 21:05 Dose: 5 mg Finasteride (Proscar) 5 mg PO DAILY [facility] Last Admin: 08/01/18 08:50 Dose: 5 mg Losartan Potassium (Cozaar) 50 mg PO DAILY [facility] Last Admin: 08/01/18 08:51 Dose: 50 mg Metformin HCl (Glucophage) 500 mg PO BIDWM [facility] Last Admin: 08/01/18 08:50 Dose: 500 mg Metoprolol Tartrate (Lopressor) 100 mg PO BID [facility] Last Admin: 08/01/18 08:49 Dose: 100 mg Multivitamins (Multivitamin Tablet) 1 tab PO DAILY [facility] Last Admin: 08/01/18 08:50 Dose: 1 tab Multivit-Min/Fa/Lycopen/Lutein [Centrum Silver Tablet] 1 tab PO BEDTIME [facility] Last Admin: 08/01/18 05:17 Dose: Not Given Simvastatin (Zocor) 40 mg PO BEDTIME [facility] Last Admin: 07/31/18 21:05 Dose: 40 mg ALLERGIES No Known Allergies Allergy (Verified 03/29/16 17:04) DISCONTINUED HOME MEDICATIONS Clopidogrel Bisulfate (Plavix) 75 mg PO DAILY [facility] Last Admin: 07/29/18 13:00 Dose: 75 mg Nifedipine (Procardia Xl) 30 mg PO BID [facility] Last Admin: 07/26/18 21:15 Dose: 30 mg NEW PRESCRIPTIONS: Alprazolam [Xanax] 0.25 mg PO BID PRN #60 tablet 08/01/18 Apixaban [Eliquis] 5 mg PO BID #60 tablet 08/01/18 Diltiazem HCl [Cardizem] 30 mg PO BID #60 tablet 08/01/18 Diltiazem HCl [Cardizem] 60 mg PO BID #60 tablet 08/01/18 SMOKING: FORMER SMOKER NONE NOW DISEASE SPECIFIC EDUCATION: ATRIAL FIB/FLUTTER CHF BRONCHITIS HYPERTENSION ANXIETY HOME HEALTH REFERRAL FOLLOW UP HOME MEDICATIONS AND CHANGES ELIQUIS RISKS AND BENEFITS LAB REVIEW: 08/01/18 05:05 08/01/18 05:05 08/01/18 05:05: WBC 12.74 H, RBC 4.13 L, Hgb 11.5 L, Hct 35.0 L, MCV 84.7, MCH 27.8, MCHC 32.9, RDW Coeff of Daniel 13.2, Plt Count 276, Immature Gran % (Auto) 1.7, Neut % (Auto) 64.6, Lymph % (Auto) 28.5, Amelia % (Auto) 4.8, Eos % (Auto) 0.2, Baso % (Auto) 0.2, Immature Gran # (Auto) 0.2, Neut # (Auto) 8.2 H, Lymph # (Auto) 3.6 H, Amelia # (Auto) 0.6, Eos # (Auto) 0.0, Baso # (Auto) 0.0 08/01/18 05:05: Sodium 139.6, Potassium 3.22 L, Chloride 99.7, Carbon Dioxide 31.1 H, Anion Gap 12.02, BUN 27.0 H, Creatinine 1.11 H, Estimated GFR (MDRD) 63.00, BUN/Creatinine Ratio 24.32, Glucose 272.7 H, Calcium 8.65, Total Bilirubin 0.74, AST 41.1, ALT 37.8, Alkaline Phosphatase 73.7, Total Protein 6.05 L, Albumin 3.36 L, Globulin 2.69, Albumin/Globulin Ratio 1.24 PLAN: DISCHARGE TO [facility] TODAY, 08/01/[address] LINO IN HIS OFFICE ON 08/08/18 AT 10:30 A.M. [facility] ([facility] HOME [facility]ALTH WILL PHONE YOU TO SCHEDULE HOME VISITS. THEY HAVE BEEN REQUESTED TO PROVIDE GENERALIZED NURSING ASSESSMENTS, MEDICATION COMPLIANCE. PT/OT HAS ALSO BEEN REQUESTED TO PROVIDE STRENGTHENING AND ENERGY CONSERVATION METHODS. PHONE #[phone] RESUME YOUR HOME MEDICATIONS PER LIST PROVIDED BY THE NURSING STAFF DO NOT TAKE YOUR CLOPIDOGREL BISULFATE DO NOT TAKE YOUR NIFEDIPINE NEW PRESCRIPTIONS DILITAZEM HCL (CARDIZEM) 90 MG, TAKE ONE TABLET BY MOUTH TWICE DAILY APIXABAN (ELIQUIS) 5 MG, TAKE ONE TABLET BY MOUTH TWICE DAILY ALPRAZOLAM (XANAX) 0.25 MG, TAKE ONE TABLET BY MOUTH TWICE DAILY IF NEEDED (PRN ) FOR ANXIETY ACTIVITY GET PLENTY OF REST AT HOME. GRADUALLY INCREASE YOUR ACTIVITY LEVEL ACCORDING TO YOUR TOLERATION DIET TOLERATED HEALTHY HEART SUMMARY THE PATIENT IS ALERT AND ORIENTED X3. PRIOR TO ADMISSION HE RESIDED AT HOME ALONE. HIS DAUGHTER IS VERY SUPPORTIVE OF HIS NEEDS. HE REQUIRED NO DME OR HOME HEALTH SERVICES. AT DISCHARGE PLANS HAVE BEEN FINALIZED FOR ADMISSION TO [facility] PER THE PATIENT'S WISHES. HE ALSO HAS CONSENTED TO [facility] FOR NURSING ASSESSMENT AND PT/OT FOR STRENGTHENING AND ENERGY CONSERVATION IN HIS HOME SETTING. HIS SKIN TURGOR IS FAIR TO GOOD AND INTACT WITHOUT DECUBITUS ULCERS AT DISCHARGE. HIS NUTRITIONAL AND HYDRATION STATUS ARE BOTH VERY GOOD. HE IS ABLE TO BE UP AND ABOUT WITH SOME ASSISTANCE. WE ARE HOPING PHYSICAL THERAPY AND OCCUPATIONAL THERAPY MAY BE BENEFICIAL IN IMPROVING HIS INDEPENDENCE AT THE [facility]. MR. MORALES AND HIS DAUGHTER ARE AWARE AND AGREEABLE FOR TODAY'S DISCHARGE PLANS. HE IS AGREEABLE TO FOLLOW UP IN THE OFFICE SCHEDULED. MEDICATIONS HAVE BEEN REVIEWED. THE CHANGES MADE HAVE BEEN DISCUSSED WITH THE PATIENT AND HIS DAUGHTER. HOME HEALTH WILL BE REQUESTED TO FOLLOW MEDICATION COMPLIANCE. CURRENT CODE STATUS: FULL CODE CLAYTON BURDEN APRN ABIMAEL LINO M.D.
--- NOTE | 2018-08-01 10:55 | PN ---
DATE OF SERVICE: 07/31/18 SUBJECTIVE: The patient was seen and examined with the nurse practitioner. The patient's condition is stable. His atrial fibrillation has normal ventricular response. PHYSICAL EXAMINATION: HEENT: Head normocephalic, atraumatic. Eyes: Extraocular muscles are intact. Pupils are equal, round and reactive to light and accommodation. Ears: No lesions. Nose appeared normal. Throat: No exudate or erythema. NECK: Supple. No JVD, no carotid bruit. No lymphadenopathy or thyromegaly. LUNGS: Decreased breath sounds. Clear to auscultation. Percussion note normal. Chest symmetrical. HEART: S1, S2, no S3. No murmurs. No cyanosis or clubbing. No ascites. Pulses: Dorsalis pedis and posterior tibial pulses +1 to +2 bilaterally. ABDOMEN: Soft. Nontender. Bowel sounds active. No CVA tenderness. No mass felt. EXTREMITIES: No edema. Full range of motion of all extremities, equal. NEUROLOGIC: No focal deficit. Cranial nerves II through XII are grossly intact. No headache, no double vision or headache. SKIN: Not dry. Intact. Turgor - normal. LYMPHATIC: No palpable lymph nodes/no lymphedema. MUSCULOSKELETAL: Normal joints with no swelling. Muscle tone is normal. PLAN: 1. Continue all antihypertensive medications, Cardizem and Metoprolol for his control rate. CONDITION: Stable TIME SPENT: More than 30 minutes. Plan and coordination of the patient's care discussed in the presence of nurse. ERICA
[2018-08-01 14:24] VITALS: BP 138/71
[2018-08-01] MEDS ORDERED: XANAX PO PRN (21:00)
--- NOTE | 2018-08-02 13:54 | DS ---
DATE OF SERVICE: 08/01/18 FINAL DIAGNOSIS: 1. ATRIAL FIB/FLUTTER, CONTROLLED 2. CHF, RESOLVING 3. MILD HYPOKALEMIA, REPLACED 4. ACUTE BRONCHITIS, IMPROVED 5. HYPERTENSION 6. GENERALIZED ANXIETY 7. DIZZINESS/WEAKNESS 8. CAD WITH CALCIFICATIONS 9. CKD, STAGE 2 10. DYSLIPIDEMIA 11. DIABETES MELLITUS, TYPE 2 12. METABOLIC SYNDROME 13. 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 NASAL BONE FRACTURE BY HISTORY 17. DEPRESSION 18. DEMENTIA 19. CORNEAL TRANSPLANT 20. CATARACT EXTRACTIONS, 2010 21. TONSILLECTOMY 22. FORMER SMOKER LAST VITALS: Temperature 97.9, pulse 84, respiratory rate 16, BP 134/82 pulse ox 96% on room air. DISCHARGE INSTRUCTIONS: 1. Discharge to [facility] today, 08/01/18 2. Followup appointment with Dr. Singh in his office on 08/08/18 at 10:30 a.m. 3. [facility] (formerly known as [facility] Home Health will phone you to schedule home visits. They have been requested to provide generalized nursing assessments, medication compliance. PT/OT has also been requested to provide strengthening and energy conservation methods. . MEDICATIONS AT DISCHARGE: Xanax 0.25 mg p.o. b.i.d. p.r.n. Eliquis 5 mg p.o. b.i.d. [facility] Cardizem 30 mg p.o. q.12h [facility] Cardizem 60 mg p.o. q.12h [facility] Lexapro 5 mg p.o. bedtime [facility] Proscar 5 mg p.o. daily [facility] Cozaar 50 mg p.o. daily [facility] Glucophage 500 mg p.o. b.i.d. with meal [facility] Lopressor 100 mg p.o. b.i.d. [facility] Multivitamin one tab p.o. daily [facility] Centrum Silver one tab p.o. bedtime Simvastatin (Zocor) 40 mg p.o. bedtime [facility] DISCONTINUED HOME MEDICATIONS: Clopidogrel (Plavix) p.o. daily [facility] Nifedipine (Procardia XL) 30 mg p.o. b.i.d. [facility] NEW PRESCRIPTIONS: Alprazolam (Xanax) 0.25 mg p.o. b.i.d. p.r.n. Eliquis 5 mg p.o. b.i.d. Cardizem 30 mg p.o. b.i.d. Cardizem 60 mg p.o. b.i.d. DIET INSTRUCTIONS: As tolerated [facility] ACTIVITY: Get plenty of rest at home. Gradually increase your activity level according to your toleration. SMOKING: Former smoker DISEASE SPECIFIC EDUCATION: Atrial fib/flutter CHF Bronchitis Hypertension Anxiety Home Health Referral Followup Home medications and changes Eliquis Risks and Benefits HOSPITAL COURSE: This is an 87-year-old white male who is a direct admit from our office after presenting with cough, congestion, whitish sputum times one week. He has had some shortness of breath with exertion. He was admitted. He had had rapid heart rate. He has a history of atrial flutter, developed atrial fib/atrial flutter with increase on his Cardizem to 90 mg p.o. b.i.d. Again, this is an increase. This was found to be persistent. He also developed some symptoms of mild CHF. BNP was 6,100. His heart rate became controlled with Cardizem with administration of IV Digoxin. He did have some hypokalemia which was replaced p.o. He also has a history of dementia and becomes somewhat confused especially in the evenings. He was placed on Zithromax and Rocephin and his coughing is significantly improved. Shortness of breath likely a combination of CHF, bronchitis and atrial fib/atrial flutter. He was also started on Eliquis 5 mg b.i.d. which is a new medication. Information regarding atrial fib/atrial flutter was discussed with both the patient and the family in detail. The family has decided that he is not capable of caring for himself at home due to his dementia and his generalized weakness. PT and OT did not think that he qualified for swing bed here. He has agreed to go to assisted living at least short term. We have arranged for home health for both nursing care to help with medication compliance. Education regarding CHF and will also have PT and OT for home safety prevention and he is agreeable to this. His daughter is in charge of his medications and has now become POA. Everyone is in agreement with discharge plans. He is in stable condition. Blood pressure has been well- controlled. Heart rate has been well-controlled for greater than 48 hours. He has been eating well and up and about by himself. Will discharge him today in stable condition. TIME SPENT: More than 60 minutes. ERICA
--- NOTE | 2018-08-02 14:43 | PN ---
DATE OF SERVICE: 08/01/18 SUBJECTIVE: The patient was examined with the nurse practitioner. The patient's condition is stable. Cardiovascular status is stable. He is in atrial fibrillation with normal ventricular response. Blood pressure is more or less under control. The patient is going to be discharged on Eliquis. The side effects of Eliquis with GI bleeding, intracranial bleed discussed. Prognosis guarded with multiple medical problems and patient's dementia seems to be worsening. TIME SPENT: More than 30 minutes. Plan and coordination of the patient's care discussed in the presence of nurse. ERICA
--- NOTE | 2018-08-02 14:44 | PN ---
07/26/18: Level 5 07/27/18: Intermediate 07/28/18: Intermediate 07/29/18: Intermediate 07/30/18: Intermediate 07/31/18: Intermediate 08/01/18: D as in discharge MTDD
== END 2018-08-01 14:25 | disposition home or self-care (01) | DRG 293 ==
LOC: MEDSURG B 12:33
PROVIDERS: ADMIT Internal Medicine; ATTEND Internal Medicine
DX: I50.9 Heart failure, unspecified (principal); I10 Essential (primary) hypertension; I25.10 Atherosclerotic heart disease of native coronary artery without angina pectoris; I25.84 Coronary atherosclerosis due to calcified coronary lesion; E87.6 Hypokalemia; E78.5 Hyperlipidemia, unspecified; E11.9 Type 2 diabetes mellitus without complications; E88.81 Metabolic syndrome and other insulin resistance; R42 Dizziness and giddiness; J20.9 Acute bronchitis, unspecified; N18.2 Chronic kidney disease, stage 2 (mild); N40.0 Benign prostatic hyperplasia without lower urinary tract symptoms; M47.9 Spondylosis, unspecified; F41.1 Generalized anxiety disorder; F32.9 Major depressive disorder, single episode, unspecified; F03.90 Unspecified dementia, unspecified severity, without behavioral disturbance, psychotic disturbance, mood disturbance, and anxiety; Z86.73 Personal history of transient ischemic attack (TIA), and cerebral infarction without residual deficits
CPT/HCPCS: 36415; 80053; 80162; 81001; 82550; 82553; 82803; 82962; 83880; 84439; 84443; 84484; 85025; 93005; 93010; 94640; 99223; 99232; 99239

== ENCOUNTER 2019-04-14 13:51 | Inpatient (IN) ==
--- NOTE | 2019-04-14 15:46 | CT ---
EXAM: CT of the head without contrast History: Head trauma. Comparison: Head CT 08/11/2018 Technique: Multiplanar CT images through the head were obtained without the administration of IV con trast Findings: The visualized paranasal sinuses and mastoid air cells are clear in general. No acute savannah varial abnormalities. Intracranially there is stable atrophy. No dominant mass or midline shift. No hydrocephalous. No a cute intracranial hemorrhage or abnormal extraaxial fluid collections. No change in the periventricu lar and subcortical white matter hypodensities and old lacunar infarctions. Atherosclerotic vascular calcifications are again seen. Impression: No acute intracranial process. Stable chronic brain changes.
--- NOTE | 2019-04-14 15:49 | CT ---
EXAM: CT of the cervical spine without contrast History: Cervical neck trauma. Technique: Multiplanar CT images through the cervical spine were obtained without the administration of IV contrast Findings: Enlarged right thyroid lobe. Visualized airway remains patent. No acute fracture or subluxation of the cervical spine. No prevertebral soft tissue swelling. Moder ate to severe multilevel disc space narrowing with endplate sclerosis and osteophyte formation. Mode rate to severe multilevel bilateral bony neural foraminal narrowing secondary to uncovertebral and fa cet hypertrophy. There are atherosclerotic vascular calcifications. Impression: 1. No acute osseous abnormality of the cervical spine. 2. Moderate to severe degenerative changes. 3. Atherosclerotic vascular disease. 4. Enlarged right thyroid lobe. Recommend outpatient thyroid ultrasound
--- NOTE | 2019-04-14 15:53 | CT ---
EXAM: CT abdomen pelvis without contrast HISTORY: Abdominal pain COMPARISON: None TECHNIQUE: CT abdomen pelvis performed without intravenous contrast. Coronal and sagittal reformatt ed images obtained. FINDINGS: No free air. Mildly displaced fracture left posterior 11th rib. Degenerative change in t he spine. Minimal central loss of height T11 with chronic features. Evaluation organ parenchyma l imited without contrast. Liver unremarkable. Gallstones. Pancreas unremarkable. Spleen unremarkab le. Adrenals unremarkable. No hydronephrosis or nephrolithiasis. No calculi visualized in normal c ourse of the ureters. Bladder unremarkable. Prostate mildly enlarged. Small bilateral fat containi ng inguinal hernias. Aorta normal in caliber. Extensive atherosclerosis. Small fat-containing iain umbilical hernia. Small hiatal hernia. No dilated loops small bowel. Appendix appears normal. Col onic diverticulosis. IMPRESSION: 1. Nondisplaced fracture left 11th rib. 2. No acute abnormality identified in the abdomen pelvis. Evaluation for acute traumatic injury of the abdominal organs limited due to lack of intravenous contrast. 3. Cholelithiasis. 4. Enlarged prostate. 5. Extensive atherosclerosis. 6. Colonic diverticulosis. 7. Small hiatal hernia 8. Please refer to separate report CT chest regarding findings in the lower chest.
--- NOTE | 2019-04-14 15:53 | CT ---
EXAM: CT of the chest without contrast History: Chest trauma. Comparison: CT abdomen and pelvis 04/14/2019 Technique: Multiplanar CT images through the thorax were obtained without the administration of IV c ontrast Findings: Heart is mildly enlarged. Coronary calcifications. Trace pericardial fluid. No axillary lymphadenopathy. Enlarged right lobe of the thyroid. No pathologically enlarged mediastinal lymph nodes. Evaluation for hilar lymph nodes is limited due to the lack of contrast administration. Ther e is consolidation within the right upper lobe. Small right pleural effusion. There is some density seen adjacent to the descending thoracic aorta. Details in the upper abdomen, please see dedicated CT abdomen pelvis done on the same day. No acute osseous abnormalities. Impression: 1. Right upper lobe consolidation. Differential diagnosis includes pneumonia versus pulmonary contu mellissa. 2. Mild cardiomegaly and coronary artery disease. 3. Small right pleural effusion. 4. Enlarged right thyroid lobe. 5. Density seen adjacent to the descending thoracic aorta probably represents atelectasis but it wou ld be difficult to exclude an underlying aortic injury. Recommend further evaluation with CTA of the chest.
--- NOTE | 2019-04-14 15:56 | CT ---
EXAM: CT of the thoracic spine without contrast History: Thoracic back trauma. Comparison: Chest CT 04/14/2019 Technique: Multiplanar CT images through the thoracic spine were obtained without the administration of IV contrast Findings: For details in the visualized thorax, please see dedicated chest CT done on the same day. No acute fracture or subluxation of the thoracic spine. Moderate multilevel disc space narrowing wit h endplate sclerosis and osteophyte formation. Bony spinal canal is not significantly compromised. Mild chronic-appearing compression involving superior endplate of T11. Impression: No acute osseous abnormality of the thoracic spine
--- NOTE | 2019-04-14 15:58 | CT ---
EXAM: CT lumbar spine without contrast HISTORY: Pain, fall COMPARISON: None TECHNIQUE: CT lumbar spine performed without intravenous contrast. Coronal and sagittal reformatted images obtained FINDINGS: Vertebral bodies normal height. No fracture. Severe multilevel intervertebral disc spaci ng. Multilevel facet arthrosis. Nonspecific heterogeneity of the bones, likely relates to osteopeni a. Grade 1 retrolisthesis of T12 on L1, and L1 on L2. Degenerative changes cause mild to moderate m ultilevel central canal narrowing and varying degrees of multilevel bilateral neural foraminal narrow ing ranging from mild to severe and greatest at L3-L4 on the right and bilaterally at L4-L5 and L5-S1 where there is moderate to severe bilateral neural foraminal narrowing. IMPRESSION: 1. No fracture. 2. 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
[2019-04-14] MEDS ORDERED: ROCEPHIN 1 GM VIAL IV STA (16:26)
[2019-04-14] MEDS ORDERED: LIDOCAINE HCL 1% SDV IM STA (16:26)
--- NOTE | 2019-04-14 16:37 | ED.PDOC ---
General ED Provider: Dr. JENNIFER SHAH Chief Complaint: Back Pain Stated Complaint: chest wall pain fever, fall ground level c/o back pain headache Time Seen by Physician: 14:00 Mode of Arrival: Wheelchair Information Source: Patient and Family Exam Limitations: No limitations Primary Care Provider: ABIMAEL LINO Nursing and Triage Documentation Reviewed and Agree: Yes Does patient meet sepsis criteria?: No System Inflammatory Response Syndrome: Not Applicable Sepsis Protocol: For patient's 13 years and over: Temp is 96.8 and below OR 101 and greater Pulse >90 BPM Resp >20/minute Acutely Altered Mental Status Are patient's symptoms suggestive of a new infection, such as: -Pneumonia -Skin, Soft Tissue -Endocarditis -UTI -Bone, Joint Infection -Implantable Device -Acute Abdominal Infection -Wound Infection -Meningitis -Blood Stream Catheter Infection -Unknown Respiratory Complaint Exam Respiratory Complaint/Exam Onset/Duration: cough x 1 day fever Symptoms Are: Still present Timing: Constant Initial Severity: Mild Current Severity: Mild Location: Nose, Throat and Chest Character: Reports Non-productive cough Associated Signs and Symptoms: Reports Fever History of Healthcare-Acquired Pneumonia: Lives at [facility] (assited ) Related Surgical History: Reports None Pulmonary Embolism Risk Factors: None Pseudomonas Risk Factors: Reports None Tuberculosis Risk Factors: Reports None Status Asthmaticus Risk Factors: Reports None Home Oxygen Use: No Recent Stress Test: No Recent Echo/LV Function: No Current Antibiotic Use: No Current Asthma Medication Use: No Respiratory Distress: None Inadequate Respiratory Effort: No Dysphagia Present: No Stridor Present: No JVD Present: No Accessory Muscle Use: No Retractions: Not Present Diminished Breath Sounds: No Sinus Tenderness: None Grunting Respirations: No Kussmaul Respirations: No Differential Diagnoses: Pulmonary Edema, COPD Exacerbation, Pneumonia, Bronchiolitis and URI Quality Indicators For Pneumonia: Antibiotics in 6hr-admit, SpO2 assessed, Empiric Antibiotic Rx, Vital signs and Mental status assessed (aox3) Non-Traumatic Chest Pain Syncope: EKG Performed Review of Systems Review Of Systems Constitutional: Reports Fever, Malaise and Loss of appetite Eyes: Reports No symptoms Ears, Nose, Mouth, Throat: Reports No symptoms Respiratory: Reports Cough Cardiac: Reports No symptoms GI: Reports No symptoms : Reports No symptoms Musculoskeletal: Reports No symptoms Skin: Reports No symptoms Neurological: Reports No symptoms Endocrine: Reports No symptoms Hematologic/Lymphatic: Reports No symptoms All Other Systems: Reviewed and Negative [facility] Social History (Updated 04/14/19 @ 14:31 by LEVI DAMICO RN) Do you feel safe at home: Yes Smoking and tobacco status: Former smoker Physical Exam Physical Exam Appearance: Well-appearing Ill-appearing: Mild Pain Distress: Mild Eyes: YESICA, EOMI and Conjunctiva clear ENT: Ears normal, Nose normal and Oropharynx normal Respiratory: Airway patent, Breath sounds clear, Breath sounds equal and Respirations nonlabored Cardiovascular: RRR, Pulses normal, No rub and No murmur GI/: Soft, Nontender, No masses, Bowel sounds normal and No Organomegaly Musculoskeletal: Normal strength, ROM intact, No edema and No calf tenderness Skin: Warm, Dry and Normal color Neurological: Sensation intact, Motor intact, Reflexes intact, Cranial nerves intact, Alert and Oriented Psychiatric: Affect appropriate and Mood appropriate Interpretation Radiology Interpretation Radiology Results: Positive (11th rib fx and rul consolidation) Manager Beverage Rate: Normal Rhythm: Sinus Ectopy: None EKG Interpretation Rate: Normal Rhythm: Sinus Ectopy: PVCs ST Segment: Other (first degree block) Physician Notification Case Discussed Physician Notified: pmd Time of Notification: 16:34 (admitt) Admit To: Inpatient Critical Care Note Critical Care Note Total Time (mins): 0 Course Course Hematology/Chemistry: 04/14/19 14:27 04/14/19 14:27 Orders, Labs, Meds: Lab Review 04/14/19 04/14/19 04/14/19 14:27 14:27 14:27 WBC 7.86 RBC 3.98 L Hgb 11.6 L Hct 34.5 L MCV 86.7 MCH 29.1 MCHC 33.6 RDW Coeff of Daniel 13.6 Plt Count 184 Immature Gran % (Auto) 0.5 Neut % (Auto) 72.2 Lymph % (Auto) 19.2 [place] % (Auto) 7.6 Eos % (Auto) 0.4 Baso % (Auto) 0.1 Immature Gran # (Auto) 0.0 Neut # (Auto) 5.7 Lymph # (Auto) 1.5 [place] # (Auto) 0.6 Eos # (Auto) 0.0 Baso # (Auto) 0.0 PT 11.8 H INR 1.21 APTT 31.8 Puncture Site O2 Saturation ABG pH ABG pCO2 ABG pO2 ABG HCO3 ABG Total CO2 ABG Base Excess FiO2 % Sodium 137.8 Potassium 3.50 Chloride 103.6 Carbon Dioxide 26.7 Anion Gap 11.00 BUN 21.7 H Creatinine 1.42 H Estimated GFR (MDRD) 47.00 BUN/Creatinine Ratio 15.28 Glucose 149.0 H Lactic Acid Calcium 8.77 Total Bilirubin 1.59 H AST 31.3 ALT 26.0 Alkaline Phosphatase 82.2 Total Protein 7.34 Albumin 4.04 Globulin 3.30 Albumin/Globulin Ratio 1.22 Procalcitonin Urine Color Urine Clarity Urine pH Ur Specific [place] Urine Protein Urine Glucose (UA) Urine Ketones Urine Blood Urine Nitrite Urine Bilirubin Urine Urobilinogen Ur Leukocyte Esterase Urine Microscopic RBC Ur Squamous Epith Cells Influ A Molecular Assay Influ B Molecular Assay 04/14/19 04/14/19 04/14/19 14:27 14:30 14:55 WBC RBC Hgb Hct MCV MCH MCHC RDW Coeff of Daniel Plt Count Immature Gran % (Auto) Neut % (Auto) Lymph % (Auto) [place] % (Auto) Eos % (Auto) Baso % (Auto) Immature Gran # (Auto) Neut # (Auto) Lymph # (Auto) [place] # (Auto) Eos # (Auto) Baso # (Auto) PT INR APTT Puncture Site O2 Saturation ABG pH ABG pCO2 ABG pO2 ABG HCO3 ABG Total CO2 ABG Base Excess FiO2 % Sodium Potassium Chloride Carbon Dioxide Anion Gap BUN Creatinine Estimated GFR (MDRD) BUN/Creatinine Ratio Glucose Lactic Acid Calcium Total Bilirubin AST ALT Alkaline Phosphatase Total Protein Albumin Globulin Albumin/Globulin Ratio Procalcitonin < 0.05 Urine Color Yellow Urine Clarity Clear Urine pH 6.0 Ur Specific [place] 1.015 Urine Protein Negative Urine Glucose (UA) Negative Urine Ketones Negative Urine Blood 2+ Urine Nitrite Negative Urine Bilirubin Negative Urine Urobilinogen 1.0 Ur Leukocyte Esterase Negative Urine Microscopic RBC 0-2 Ur Squamous Epith Cells Not present Influ A Molecular Assay Negative by naat Influ B Molecular Assay Negative by naat 04/14/19 04/14/19 15:26 15:40 WBC RBC Hgb Hct MCV MCH MCHC RDW Coeff of Daniel Plt Count Immature Gran % (Auto) Neut % (Auto) Lymph % (Auto) [place] % (Auto) Eos % (Auto) Baso % (Auto) Immature Gran # (Auto) Neut # (Auto) Lymph # (Auto) [place] # (Auto) Eos # (Auto) Baso # (Auto) PT INR APTT Puncture Site Rb O2 Saturation 98.0 ABG pH 7.519 H* ABG pCO2 27.6 L ABG pO2 87.0 ABG HCO3 22.5 ABG Total CO2 23 ABG Base Excess 0 FiO2 % 21.0 Sodium Potassium Chloride Carbon Dioxide Anion Gap BUN Creatinine Estimated GFR (MDRD) BUN/Creatinine Ratio Glucose Lactic Acid 0.78 Calcium Total Bilirubin AST ALT Alkaline Phosphatase Total Protein Albumin Globulin Albumin/Globulin Ratio Procalcitonin Urine Color Urine Clarity Urine pH Ur Specific [place] Urine Protein Urine Glucose (UA) Urine Ketones Urine Blood Urine Nitrite Urine Bilirubin Urine Urobilinogen Ur Leukocyte Esterase Urine Microscopic RBC Ur Squamous Epith Cells Influ A Molecular Assay Influ B Molecular Assay Orders Category Date Time Status ABG DRAW REQUEST Stat CARDIO 04/14/19 15:26 Completed EKG-(ED ONLY) Stat CARDIO 04/14/19 14:20 Completed ABG Stat LAB 04/14/19 15:26 Completed BLOOD CULTURE Stat LAB 04/14/19 15:40 Received CBC W/ AUTO DIFF Stat LAB 04/14/19 14:27 Completed COMPREHENSIVE METABOLIC PANEL Stat LAB 04/14/19 14:27 Completed FLU A/B MOLECULAR Stat LAB 04/14/19 14:30 Completed LACTIC ACID Stat LAB 04/14/19 15:40 Completed MOLECULAR GROUP A STREP Stat LAB 04/14/19 14:30 Completed PARTIAL THROMBOPLASTIN TIME Stat LAB 04/14/19 14:27 Completed PROCALCITONIN Stat LAB 04/14/19 14:27 Completed PT WITH INR Stat LAB 04/14/19 14:27 Completed URINALYSIS C & S IF INDICATED Stat LAB 04/14/19 14:55 Completed Ceftriaxone 1 gm Vial [Rocephin 1 gm Vial] MEDS 04/14/19 16:26 Discontinued 1 gm IV ONCE STA Lidocaine HCl/Pf [Lidocaine HCl 1% Sdv] MEDS 04/14/19 16:26 Discontinued 2.1 ml IM ONCE STA CT ABDOMEN/PELVIS WO CONTRAST Stat RADS 04/14/19 14:[address] CERVICAL SPINE W/O CONTRAST Stat RADS 04/14/19 14:[address] CHEST W/O CONTRAST Stat RADS 04/14/19 15:[address] HEAD W/O CONTRAST Stat RADS 04/14/19 14:[address] LUMBAR SPINE W/O CONTRAST Stat RADS 04/14/19 14:[address] THORACIC SPINE W/O CONTRAST Stat RADS 04/14/19 14:17 Completed Medications Discontinued Medications Generic Name Dose Route Start Last Admin Trade Name Dong PRN Reason Stop Dose Admin Ceftriaxone Sodium 1 gm 04/14/19 16:26 Rocephin 1 Gm Vial IV 04/14/19 16:27 ONCE STA Lidocaine HCl 2.1 ml 04/14/19 16:26 Lidocaine Hcl 1% Sdv IM 04/14/19 16:27 ONCE STA Vital Signs: Temp Pulse Resp BP Pulse Ox 04/14/19 13:51 101.8 F H 81 20 177/87 H 92 L Discharge Plan Discharge Patient Disposition: ADMITTED INPATIENT Prescriptions: No Action metoprolol tartrate 100 MG tablet 100 mg PO BID RF: 0 simvastatin 40 MG tablet 20 mg PO BEDTIME RF: 0 finasteride 5 MG tablet 5 mg PO DAILY RF: 0 multivitamin [Daily Multi-Vitamin] 1 EACH tablet 1 ea PO DAILY RF: 0 furosemide 40 mg Tablet 40 mg PO BID RF: 0 amiodarone 200 mg Tablet 200 mg PO DAILY RF: 0 tamsulosin 0.4 mg Capsule 0.4 mg PO DAILY RF: 0 levothyroxine 50 mcg Tablet 50 mcg PO DAILY RF: 0 linagliptin 5 mg Tablet 5 mg PO DAILY RF: 0 Enestro 24 - 26 mg PO BID RF: 0 alprazolam 0.25 MG tablet 0.25 mg PO BEDTIME Qty: 60 RF: 0 Eliquis 5 MG tablet 5 mg PO BID Qty: 60 RF: 1 ED Provider: JENNIFER SHAH Condition: Good
[2019-04-14] MEDS ORDERED: LEVAQUIN 500 MG/100 ML D5W 500 MG/100 ML BAG IV ONE (16:52)
[2019-04-14] MEDS ORDERED: SOLU-MEDROL 125 MG IVP STA (16:53)
[2019-04-14] MEDS ORDERED: LASIX TAB PO SCH (17:00)
[2019-04-14] MEDS ORDERED: SODIUM CHLORIDE 1,000 ML IV SCH (17:00)
[2019-04-14 17:45] VITALS: BMI 28.0
[2019-04-14] MEDS ORDERED: TORADOL IVP STA (18:16)
[2019-04-14] MEDS ORDERED: DILAUDID 1 MG/ML SYRINGE IVP PRN (18:16)
[2019-04-14] MEDS ORDERED: VASOTEC IV IVP PRN (18:18)
[2019-04-14] MEDS: DUONEB NEB SCH ×2 (18:20→23:25)
[2019-04-14] MEDS: LOPRESSOR PO SCH (20:59)
[2019-04-14] MEDS: ZOCOR PO SCH (20:59)
[2019-04-14] MEDS: XANAX PO SCH (20:59)
[2019-04-14] MEDS: ELIQUIS PO SCH (20:59)
[2019-04-14] MEDS ORDERED: ZOCOR PO SCH (21:00)
[2019-04-14] MEDS ORDERED: [UNRECOGNIZED DRUG - OTHER] PO SCH (21:00)
[2019-04-15] MEDS: DUONEB NEB SCH ×4 (04:40→23:20)
[2019-04-15] MEDS: SYNTHROID PO SCH (06:30)
[2019-04-15] MEDS: LASIX TAB PO SCH (06:31)
[2019-04-15] MEDS: PROSCAR PO SCH (08:40)
[2019-04-15] MEDS: FLOMAX PO SCH (08:40)
[2019-04-15] MEDS: LOPRESSOR PO SCH ×2 (08:41→21:52)
[2019-04-15] MEDS: AMARYL PO SCH (08:41)
[2019-04-15] MEDS: CORDARONE PO SCH (08:41)
[2019-04-15] MEDS: TRADJENTA PO SCH (08:41)
[2019-04-15] MEDS: ELIQUIS PO SCH ×2 (08:42→21:52)
[2019-04-15] MEDS ORDERED: LEVAQUIN 500 MG/100 ML D5W 500 MG/100 ML BAG IV SCH (09:00)
[2019-04-15] MEDS ORDERED: ENTRESTO 24 MG-26 MG TABLET PO SCH (09:00)
[2019-04-15] MEDS: ENTRESTO 24 MG-26 MG TABLET PO SCH ×2 (09:12→21:51)
[2019-04-15] MEDS: ROCEPHIN 1 GM/50 ML D5W 1 GM/50 ML BAG IV SCH (09:14)
--- NOTE | 2019-04-15 10:01 | PCM.PROG ---
Attending Provider: ATTENDING PROVIDER: Dr. ABIMAEL LINO This patient is seen with Marie Galindo, Nurse Practitioner. DATE OF SERVICE: 04/15/19 SUBJECTIVE: This 88 year old /WHITE M was hospitalized 04/14/19. The patient is pleasantly confused this morning. States that he is not in any pain. He has been coughing, not short of breath. REVIEW OF SYSTEMS: CONSTITUTIONAL: No night sweats. No fatigue, malaise, lethargy. No fever or chills. Weakness. HEENT: Eyes: No visual changes. No eye pain. No eye discharge. ENT: No runny nose. No epistaxis. No sinus pain. No odynophagia. No congestion. RESPIRATORY: Cough, no congestion. No hemoptysis. No shortness of breath. CARDIOVASCULAR: No angina symptoms. No CHF symptoms. No atypical chest pain for CAD. No palpitations. No orthopnea.. GASTROINTESTINAL: No abdominal pain. No nausea or vomiting. No diarrhea or constipation. No hematemesis. No hematochezia. GENITOURINARY: No urgency. No frequency. No dysuria. No hematuria. No obstructive symptoms. No discharge. No pain. No significant abnormal bleeding. MUSCULOSKELETAL: No musculoskeletal pain; no joint swelling. NEUROLOGICAL: Awake, alert, confused. No headache. No neck pain. No syncope. No seizures. No dizziness. PSYCHIATRIC: Not anxious. No depression. No suicidal thoughts. No homicidal thoughts. SKIN: No rash. No lesions. No wounds. ENDOCRINE: No unexplained weight loss. No weight gain. HEMATOLOGIC/LYMPHATIC: No anemia. No purpura. No petechiae. No prolonged or excessive bleeding. No palpable lymph nodes. PHYSICAL EXAMINATION: GENERAL: The patient is awake, alert and oriented, lying in bed in no distress. VITAL SIGNS: Temperature 97.7 F, Pulse 55, Respiratory Rate 18, BP 134/73, Pulse Ox 98% HEENT: Head normocephalic, atraumatic. Eyes: Extraocular muscles are intact. Pupils are equal, round and reactive to light and accommodation. Ears: No lesions. Nose appeared normal. Throat: No exudate or erythema. NECK: Supple. No JVD, no carotid bruit. No lymphadenopathy or thyromegaly. LUNGS: Diminished breath sounds. Clear to auscultation. Percussion note normal. Chest symmetrical. HEART: S1, S2, no S3. Irregular heart rate. No murmurs. No cyanosis or clubbing. No ascites. Pulses: Dorsalis pedis and posterior tibial pulses +1 to +2 both sides. ABDOMEN: Soft. Non-tender. Bowel sounds active. No CVA tenderness. No mass felt. EXTREMITIES: No edema. Full range of motion of all extremities, equal. Abrasion left elbow. NEUROLOGIC: No focal deficit. Cranial nerves II through XII are grossly intact. No headache, no double vision or headache. SKIN: Not dry. Intact. Turgor-normal. LYMPHATIC: No palpable lymph nodes/no lymphedema. MUSCULOSKELETAL: Normal joints with no swelling. Muscle tone is normal. LAB REVIEW: 04/15/19 05:19 04/15/19 05:19 04/15/19 05:19: Sodium 137.5, Potassium 3.60, Chloride 102.8, Carbon Dioxide 26.2, Anion Gap 12.10, BUN 25.0 H, Creatinine 1.28 H, Estimated GFR (MDRD) 53.00, BUN/Creatinine Ratio 19.53, Glucose 259.8 H D, Calcium 8.23 L, Total Bilirubin 1.20, AST 23.8, ALT 23.3, Alkaline Phosphatase 69.8, Total Protein 6.52, Albumin 3.58, Globulin 2.94, Albumin/Globulin Ratio 1.21 04/15/19 05:19: WBC 5.82, RBC 3.66 L, Hgb 10.4 L, Hct 31.5 L, MCV 86.1, MCH 28.4, MCHC 33.0, RDW Coeff of Daniel 13.6, Plt Count 164, Immature Gran % (Auto) 0.3, Neut % (Auto) 74.8, Lymph % (Auto) 22.0, [place] % (Auto) 2.9, Eos % (Auto) 0.0, Baso % (Auto) 0.0, Immature Gran # (Auto) 0.0, Neut # (Auto) 4.4, Lymph # (Auto) 1.3, [place] # (Auto) 0.2 L, Eos # (Auto) 0.0, Baso # (Auto) 0.0 04/14/19 15:40: Lactic Acid 0.78 04/14/19 15:26: Puncture Site Rb, O2 Saturation 98.0, ABG pH 7.519 H*, ABG pCO2 27.6 L, ABG pO2 87.0, ABG HCO3 22.5, ABG Total CO2 23, ABG Base Excess 0, FiO2 % 21.0 04/14/19 14:55: Urine Color Yellow, Urine Clarity Clear, Urine pH 6.0, Ur Specific [place] 1.015, Urine Protein Negative, Urine Glucose (UA) Negative, Urine Ketones Negative, Urine Blood 2+, Urine Nitrite Negative, Urine Bilirubin Negative, Urine Urobilinogen 1.0, Ur Leukocyte Esterase Negative, Urine Microscopic RBC 0-2, Ur Squamous Epith Cells Not present 04/14/19 14:30: Influ A Molecular Assay Negative by naat, Influ B Molecular Assay Negative by naat 04/14/19 14:27: Procalcitonin < 0.05 04/14/19 14:27: PT 11.8 H, INR 1.21, APTT 31.8 04/14/19 14:27: Sodium 137.8, Potassium 3.50, Chloride 103.6, Carbon Dioxide 26.7, Anion Gap 11.00, BUN 21.7 H, Creatinine 1.42 H, Estimated GFR (MDRD) 47.00, BUN/Creatinine Ratio 15.28, Glucose 149.0 H, Calcium 8.77, Total Bilirubin 1.59 H, AST 31.3, ALT 26.0, Alkaline Phosphatase 82.2, Total Protein 7.34, Albumin 4.04, Globulin 3.30, Albumin/Globulin Ratio 1.22 04/14/19 14:27: WBC 7.86, RBC 3.98 L, Hgb 11.6 L, Hct 34.5 L, MCV 86.7, MCH 29.1, MCHC 33.6, RDW Coeff of Daniel 13.6, Plt Count 184, Immature Gran % (Auto) 0.5, Neut % (Auto) 72.2, Lymph % (Auto) 19.2, [place] % (Auto) 7.6, Eos % (Auto) 0.4, Baso % (Auto) 0.1, Immature Gran # (Auto) 0.0, Neut # (Auto) 5.7, Lymph # (Auto) 1.5, [place] # (Auto) 0.6, Eos # (Auto) 0.0, Baso # (Auto) 0.0 ASSESSMENT: Please see below. 1. Status post fall 2. Left 11th rid fracture 3. Pulmonary contusion versus atelectasis 4. Atrial fibrillation 5. Chronic kidney disease 6. Dementia. PLAN: 1. Rocephin 1 gram IV daily 2. Decrease IV fluids to 50 cc 3. Bactroban BID to abrasion Plan and coordination of the patient's care discussed in the presence of Job Estimator and nurse. SCRIBED BY: Jake CROWLEY scribed while in presence of service performed by Dr. Lino/Marie Galindo APRN on 04/15/19 ([id number])
[2019-04-15] MEDS: BACTROBAN TP SCH (10:30)
[2019-04-15] MEDS: SODIUM CHLORIDE 1,000 ML IV SCH (11:54)
--- NOTE | 2019-04-15 13:45 | PN ---
DATE OF SERVICE: 04/14/19 SUBJECTIVE: The patient was hospitalized with complain of having a fall. The patient's multiple CT scan of the brain, chest and abdomen all negative. No fractures. The patient has a temperature of 102. Etiology still seems to be unclear. He doesn't cough but the chest CT scan as usual shows possibility of consolidation. The patient is on IV antibiotics. The patient's Influenza A and B negative. TIME SPENT: More than 30 minutes. Plan and coordination of the patient's care discussed in the presence of nurse. ERICA
--- NOTE | 2019-04-15 14:10 | RS.PTINEVL ---
Subjective - Patient information Date of Evaluation: 04/15/19 Date of Arrival on Unit: 04/14/19 Admitted From:: Home (lives at [facility]) Diagnosis: fall, L 11th rib fx Usual Living Arrangement: Alone Home Environment: Apartment, Level/No stairs Medical History: Hypertension, CVA/TIA, Dementia, CHF, Arthritis Medical History Comments:: depression LATEX ALLERGY?: No Medications: see chart Subjective Information/ Patient Comments:: pt states that he would like to get out of bed and try to walk. - Level of function Prior to this admission, the patient could do the following:: Independent Selfcare, Independent ADL's, Independent Ambulation (with rwx), Perform Band Tier/Cooking, Drive, Participated in Social Activities Outside home Current Level of Function: Partially Dependent Current Equipment Used at Home: rolling Walker, Pain Assessement - Location L side Description: Aching Intensity: 2 Pain Behavior: Facial Grimacing Pain Aggravating Factors: Changing Position Pain Alleviating Factors: Medication Interventions - Objective Patient Orientation: Person, Place, Time, Situation Current Interventions: IV's, Oxygen, Telemetry Range of Motion - ROM Right Upper Extremity AROM: WFL's Left Upper Extremity AROM: WFL's Right Lower Extremity AROM: WFL's Left Lower Extremity AROM: WFL's Muscle Strength - Muscle Strength Right Upper Extremity Strength: Mild Weakness (grossly 4/5) Left Upper Extremity Strength: Mild Weakness (grossly 4/5) Right Lower Extremity Strength: Mild Weakness (hip flex 4/5, knee flex/ext 4/5, ankle DF/PF 4/5) Left Lower Extremity Strength: Mild Weakness (hip flex 4/5, knee flex/ext 4/5, ankle DF/PF 4/5) Sensation - Sensation Right Upper Extremity Sensation: Intact/Normal Left Upper Extremity Sensation: Intact/Normal Right Lower Extremity Sensation: Intact/Normal Left Lower Extremity Sensation: Intact/Normal Palpation Palpation Findings: Tenderness Comments:: L side of chest Balance - Sitting Balance and Reactions Static Sitting Balance: Fair Dynamic Sitting Balance: Fair - Standing Balance and Reactions Static Standing Balance: Poor Dynamic Standing Balance: Poor Standing Equilibrium Reactions: Delayed Left, Delayed Right Standing Protective Reactions: Delayed Left, Delayed Right Functional Mobility - Bed Mobility Rolling R/L: CGA Supine to Sit: CGA - Transfers Sit to Stand: Min Assist Stand to Sit: CGA - Safety Awareness Safety Awareness: Fair NATAN INDEX SCORE: n/a Ambulation - Ambulation Assistive Device Used: Rolling Walker Orthotic/Prosthetic Device: No Distance: 140ft Assistance needed with Ambulation: CGA Gait Deviations: Forward posture, Short stride Ambulation Comments: pt requires verbal cues for step length, and posture. Factors Affecting Ambulation: Decreased Balance, Breathing/O2 Saturation, Pain, Weakness, Decreased Safety, Limited Endurance Treatment time - Time with patient Length of Evaluation: 21 Total treatment time: 24 Patient Education - Education Patient Education: Activity Modification, Education of Plan of Care Teaching Recipient: Patient Teaching Methods: Discussion Comments: discussion regarding POC as well as safety with transfers. Assessment - Assessment Problem List:: Decreased level of function, Requires training/education, Decreased safety/Risk of falls, Weakness Rehab Potential: Good Further Therapy Indicated?: Yes Candidate for Swing Bed for Therapy Services?: Feel pt may not be a candidate for swing bed due to being at a higher functional level. Evaluation Complexity: HISTORY: Medium, EXAM OF BODY SYSTEMS: Medium, CLINICAL PRESENTATION: Medium, CLINICAL DECISION MAKING: Medium Short Term Goals GOAL #1: pt independent with rolling and scooting in bed Goal to be met by: 04/17/19 GOAL #2: Transfer sup to/from sit SBA Goal to be met by: 04/17/19 GOAL #3: Sit to/from stand CGA Goal to be met by: 04/17/19 GOAL #4: pt amb 150ft with rwx with CGA with improved posture Goal to be met by: 04/17/19 Long-Term Goals GOAL #1: pt transfer sup to/from sit independently sit to/from stand SBA Goal to be met by: 04/19/19 GOAL #2: pt amb functional household distances with rwx with CG to SBA no LOB Goal to be met by: 04/19/19 GOAL #3: Improve dyn stand balance fair + Goal to be met by: 04/19/19 Plan Plan of Care: Therapeutic EX, Therapeutic Activity Other:: gait training Frequency of Treatment: 1-2 X day, as tolerated Duration of Treatment: 5 days Anticipated Discharge Destination: Home Treatment Diagnosis (ICD 10 Codes): difficulty walking R 26.2. balance impaired R 26.81 Has the Physician been added for Co-signature?: Yes
[2019-04-15] MEDS ORDERED: ZITHROMAX PO STA (15:59)
[2019-04-15] MEDS: XANAX PO SCH (21:53)
[2019-04-15] MEDS: ZOCOR PO SCH (21:54)
[2019-04-16] MEDS: DUONEB NEB SCH ×4 (04:30→23:35)
[2019-04-16] MEDS: SYNTHROID PO SCH (06:10)
[2019-04-16] MEDS: LASIX TAB PO SCH (06:10)
[2019-04-16] MEDS: BACTROBAN TP SCH (08:30)
[2019-04-16] MEDS: ROCEPHIN 1 GM/50 ML D5W 1 GM/50 ML BAG IV SCH (09:51)
[2019-04-16] MEDS: FLOMAX PO SCH (09:51)
[2019-04-16] MEDS: ENTRESTO 24 MG-26 MG TABLET PO SCH ×2 (09:51→20:56)
[2019-04-16] MEDS: TRADJENTA PO SCH (09:52)
[2019-04-16] MEDS: AMARYL PO SCH (09:52)
[2019-04-16] MEDS: LOPRESSOR PO SCH ×2 (09:52→20:55)
[2019-04-16] MEDS: CORDARONE PO SCH (09:52)
[2019-04-16] MEDS: PROSCAR PO SCH (09:52)
[2019-04-16] MEDS: ZITHROMAX PO SCH (09:53)
[2019-04-16] MEDS: ELIQUIS PO SCH ×2 (09:53→20:55)
[2019-04-16] MEDS ORDERED: K-DUR PO STA (10:38)
--- NOTE | 2019-04-16 13:57 | RS.OTINEVL ---
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 LATEX ALLERGY?: No Surgical History: Tonsillectomy Medications: see chart Subjective Information/ Patient Comments:: "Can I stay here another day? I really like it here." - Level of function Prior to this admission, the patient could do the following:: Independent Selfcare, Independent ADL's, Independent Ambulation (with rwx), Perform Senior Online Marketing Manager/Cooking, Drive, Participated in Social Activities Outside home Abilities prior to this admission: Pt is living at [facility] and had a recent fall. Pt requires verbal cues. Current Equipment Used at Home: rolling Walker, Pain Assessment - Pain Pain Score: 10 Side: left Pain Location Body Site: Left side of ribs. Pain Aggravating Factors: ADL's, Standing Pain Alleviating Factors: Sitting Interventions - Objective Patient Orientation: Person Current Interventions: IV's Observation: Pt has quick wit about him. Pt reports he was running from the women and fell at [facility]. Pt likes the hospital and likes to stay here. Pt is weak and has difficulty with functional transfers. Pt requires verbal cues constantly. Interventions - ROM Right Upper Extremity AROM: WFL's Left Upper Extremity AROM: Slight limitation Comments: Pt has pain in the Left side ribs. - Strength Right Upper Extremity Strength: Mild Weakness Left Upper Extremity Strength: Mild Weakness - Sensation Right Upper Extremity Sensation: Intact/Normal Left Upper Extremity Sensation: Intact/Normal Balance - Sitting Balance Static Sitting Balance: Fair Dynamic Sitting Balance: Fair - Standing Balance Static Standing Balance: Poor Dynamic Standing Balance: Poor ADL Skills - Self Feeding Self Feeding: Min Assist - Grooming Grooming: Min Assist - Dressing Dressing LE: Mod Assist - Toilet Management Toileting Management: Mod Assist - Comments Comments:: Pt has limited LUE movement due to the pain sustained with the left fractured ribs. Functional Mobility - Bed Mobility Rolling R/L: Min Assist Scooting: Min Assist Supine to Sit: Min Assist Sit to Supine: Min Assist - Transfers Sit to Stand: Min Assist Stand to Sit: Min Assist Stand Pivot Transfers: Min Assist - Ambulation Weight Bearing Status: FWB Assistive Device Used: Rolling Walker Assistance needed with Ambulation: Min Assist, 1 person assist - Safety Awareness Safety Awareness: Good NATAN INDEX SCORE: . Additional Treatment Performed - Time with patient Length of Evaluation: 25 Total treatment time: 25 Activities Do you enjoy playing games?: Yes Would you be interested in leaving your room for activities?: Yes Would you enjoy group activities?: Yes Do you have difficulty with your vision?: Yes What types of things do you enjoy doing? Any Hobbies?: TV Patient Interests:: Watching Television Patient Education Patient Education: Education of diagnosis, Education of Plan of Care Teaching Recipient: Patient Teaching Methods: Teach Back Method Used Assessment Problem List:: Decreased level of function, Requires training/education, Decreased safety/Risk of falls, Weakness Rehab Potential: Good Further Therapy Indicated?: Yes Evaluation Complexity: HISTORY: Medium, EXAM OF BODY SYSTEMS: Medium, CLINICAL DECISION MAKING: Medium Short Term Goals - Goals GOAL 1: Pt to increase RUE strength to 4/5. Goal to be met by: 04/20/19 Comments: Pt has trouble with RUE due to old CVA. GOAL 2: Pt to increase safety of functional transfers to CGA with RW. Goal to be met by: 04/21/19 GOAL 3: Pt to increase dyn. std. balance to Fair+. Goal to be met by: 04/21/19 Mcfp Goals GOAL 1: Pt to be Mod- Independent with self cares. Goal to be met by: 04/22/19 GOAL 2: Pt to increase safety of functional transfers to Mod-I with RW. Goal to be met by: 04/22/19 GOAL 3: Pt to increase dyn. std. balance to Good-. Goal to be met by: 04/22/19 Plan Plan of Care: Therapeutic EX, Neuromuscular Re-Educ, Therapeutic Activity, Self- Care/Home Management Modalities: Cold Pack/Cryotherapy Frequency of Treatment: 1-2 X day, as tolerated Duration of Treatment: 1 Week Anticipated Discharge Destination: Assisted Living Facility Treatment Diagnosis (ICD 10 Codes): M62.81 Muscle weakness, R27.8 Lack of coordination Has the Physician been added for Co-signature?: Yes
[2019-04-16] MEDS: SODIUM CHLORIDE 1,000 ML IV SCH (17:19)
[2019-04-16] MEDS: K-DUR PO SCH (17:19)
[2019-04-16] MEDS: ZOCOR PO SCH (20:55)
[2019-04-16] MEDS: XANAX PO SCH (20:55)
[2019-04-17] MEDS: DUONEB NEB SCH ×4 (04:55→22:35)
[2019-04-17] MEDS: LASIX TAB PO SCH (05:38)
[2019-04-17] MEDS: SYNTHROID PO SCH (05:38)
[2019-04-17] MEDS: SODIUM CHLORIDE 1,000 ML IV SCH (05:44)
[2019-04-17] MEDS: AMARYL PO SCH (09:42)
[2019-04-17] MEDS: BACTROBAN TP SCH (09:43)
[2019-04-17] MEDS: TRADJENTA PO SCH (09:44)
[2019-04-17] MEDS: ZITHROMAX PO SCH (09:44)
[2019-04-17] MEDS: CORDARONE PO SCH (09:44)
[2019-04-17] MEDS: ENTRESTO 24 MG-26 MG TABLET PO SCH ×2 (09:44→20:56)
[2019-04-17] MEDS: LOPRESSOR PO SCH ×2 (09:45→20:56)
[2019-04-17] MEDS: ROCEPHIN 1 GM/50 ML D5W 1 GM/50 ML BAG IV SCH (09:46)
[2019-04-17] MEDS: FLOMAX PO SCH (09:46)
[2019-04-17] MEDS: PROSCAR PO SCH (09:46)
[2019-04-17] MEDS: ELIQUIS PO SCH ×2 (09:47→20:56)
--- NOTE | 2019-04-17 09:55 | PCM.PROG ---
Attending Provider: ATTENDING PROVIDER: Dr. ABIMAEL LINO This patient is seen with Marie Galindo, Nurse Practitioner. DATE OF SERVICE: 04/17/19 SUBJECTIVE: This 88 year old /WHITE M was hospitalized 04/14/19. The patient is resting comfortably. He has been complaining of left sided pain off and on. Potassium is low today. REVIEW OF SYSTEMS: CONSTITUTIONAL: No night sweats. No fatigue, malaise, lethargy. No fever or chills. Weakness. HEENT: Eyes: No visual changes. No eye pain. No eye discharge. ENT: No runny nose. No epistaxis. No sinus pain. No odynophagia. No congestion. RESPIRATORY: No cough, no congestion. No hemoptysis. No shortness of breath. CARDIOVASCULAR: No angina symptoms. No CHF symptoms. No atypical chest pain for CAD. No palpitations. No orthopnea.. GASTROINTESTINAL: No abdominal pain. No nausea or vomiting. No diarrhea or constipation. No hematemesis. No hematochezia. GENITOURINARY: No urgency. No frequency. No dysuria. No hematuria. No o bstructive symptoms. No discharge. No pain. No significant abnormal bleeding. MUSCULOSKELETAL: No musculoskeletal pain; no joint swelling. Left sided pain. NEUROLOGICAL: Awake, alert, confused. No headache. No neck pain. No syncope. No seizures. No dizziness. PSYCHIATRIC: Not anxious. No depression. No suicidal thoughts. No homicidal thoughts. SKIN: No rash. No lesions. No wounds. ENDOCRINE: No unexplained weight loss. No weight gain. HEMATOLOGIC/LYMPHATIC: No anemia. No purpura. No petechiae. No prolonged or excessive bleeding. No palpable lymph nodes. PHYSICAL EXAMINATION: GENERAL: The patient is awake, alert and oriented, lying in bed in no distress. VITAL SIGNS: Temperature 98.4 F, Pulse 72, Respiratory Rate 18, BP 178/85, Pulse Ox 94% HEENT: Head normocephalic, atraumatic. Eyes: Extraocular muscles are intact. Pupils are equal, round and reactive to light and accommodation. Ears: No lesions. Nose appeared normal. Throat: No exudate or erythema. NECK: Supple. No JVD, no carotid bruit. No lymphadenopathy or thyromegaly. LUNGS: Diminished breath sounds. Clear to auscultation. Percussion note normal. Chest symmetrical. HEART: S1, S2, no S3. No murmurs. No cyanosis or clubbing. No ascites. Pulses: Dorsalis pedis and posterior tibial pulses +1 to +2 both sides. ABDOMEN: Soft. Non-tender. Bowel sounds active. No CVA tenderness. No mass felt. EXTREMITIES: Trace leg edema. Full range of motion of all extremities, equal. NEUROLOGIC: No focal deficit. Cranial nerves II through XII are grossly intact. No headache, no double vision or headache. SKIN: Not dry. Intact. Turgor-normal. LYMPHATIC: No palpable lymph nodes/no lymphedema. MUSCULOSKELETAL: Normal joints with no swelling. Muscle tone is normal. LAB REVIEW: 04/17/19 06:02 04/17/19 06:02 04/17/19 06:02: Sodium 136.6, Potassium 2.99 L, Chloride 107.1 H, Carbon Dioxide 25.2, Anion Gap 7.29, BUN 22.4 H, Creatinine 1.26 H, Estimated GFR (MDRD) 54.00, BUN/Creatinine Ratio 17.77, Glucose 110.0 H, Calcium 8.22 L, Total Bilirubin 0.91, AST 39.3, ALT 39.3, Alkaline Phosphatase 73.2, Total Protein 6.21 L, Albumin 3.32 L, Globulin 2.89, Albumin/Globulin Ratio 1.14 04/17/19 06:02: WBC 7.49, RBC 3.74 L, Hgb 10.8 L, Hct 31.9 L, MCV 85.3, MCH 28.9, MCHC 33.9, RDW Coeff of Daniel 13.7, Plt Count 202, Immature Gran % (Auto) 0.4, Neut % (Auto) 57.0, Lymph % (Auto) 31.4, [place] % (Auto) 9.6, Eos % (Auto) 1.5, Baso % (Auto) 0.1, Immature Gran # (Auto) 0.0, Neut # (Auto) 4.3, Lymph # (Auto) 2.4, [place] # (Auto) 0.7, Eos # (Auto) 0.1, Baso # (Auto) 0.0 ASSESSMENT: Please see below. 1. Acute pneumonitis clinically improved 2. Status post fall 3. 11th rib fracture 4. Atrial fibrillation PLAN: 1. Continue Rocephin 2. Continue Zithromax 3. 40meq Potassium QID 4. Tylenol 5. Discontinue Dilaudid Plan and coordination of the patient's care discussed in the presence of Circular Saw Filer and nurse. SCRIBED BY: Jake CROWLEY scribed while in presence of service performed by Dr. Lino/Marie Galindo APRN on 04/17/19 ([id number])
[2019-04-17] MEDS ORDERED: TYLENOL PO PRN (11:33)
[2019-04-17] MEDS: K-DUR PO SCH ×5 (12:26→23:45)
[2019-04-17] MEDS ORDERED: MILK OF MAGNESIA PO STA (12:35)
--- NOTE | 2019-04-17 13:16 | HP ---
DATE OF SERVICE: 04/14/19 HISTORY OF PRESENT ILLNESS: 89-year-old white male who presents to the emergency room, had a fall to the ground within the past day or so. He was found to have complaint of back pain, also with fever and cough. 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 No night sweats. No fatigue, malaise, lethargy. No chills. HEENT: Eyes: No visual changes. No eye pain. No eye discharge. ENT: No runny nose. No epistaxis. No sinus pain. No sore throat. No odynophagia. No ear pain. No congestion. RESPIRATORY: Positive for cough, no congestion. No hemoptysis. No shortness of breath. CARDIOVASCULAR: No angina symptoms. No CHF symptoms. No atypical chest pain for CAD. No palpitations. No PND. No orthopnea. GASTROINTESTINAL: No abdominal pain. No nausea or vomiting. No diarrhea or constipation. No hematemesis. No hematochezia. GENITOURINARY: No urgency. No frequency. No dysuria. No hematuria. No obstructive symptoms. No discharge. No pain. No significant abnormal bleeding. MUSCULOSKELETAL: Positive for back pain. No joint swelling. No arthritis. NEUROLOGICAL: No headache. No neck pain. No syncope. No seizures. No dizziness. PSYCHIATRIC: Not anxious. No depression. No suicidal thoughts. No homicidal thoughts. SKIN: No rash. No lesions. No wounds. ENDOCRINE: No unexplained weight loss. No weight gain. HEMATOLOGIC/LYMPHATIC: No anemia. No purpura. No petechiae. No prolonged or excessive bleeding. No palpable lymph nodes. PERSONAL/FAMILY/SOCIAL HISTORY: Former smoker. . No alcohol or ilicit drug use. He currently lives at assisted living. MEDICATIONS: (HOME) Simvastatin 20 mg p.o. bedtime Metoprolol 100 mg p.o. b.i.d. Finasteride 5 mg p.o. daily Multivitamin one each p.o. daily Eliquis 5 mg p.o. b.i.d. Alprazolam 0.25 mg p.o. bedtime Tamsulosin 0.4 mg p.o. daily Linagliptin 5 mg p.o. daily Levothyroxine 50 mcg p.o. daily Amiodarone 200 mg p.o. daily Glimepiride 2 mg p.o. daily Furosemide 40 mg p.o. daily Sacubitril-Valsartan 24-26 mg tablet one tab p.o. b.i.d. ALLERGIES: NKDA PHYSICAL EXAMINATION: VITAL SIGNS: Temperature 101.7, blood pressure 170/93, heart rate 81, respirations 20, 02 sat 92%. HEENT: Head normocephalic, atraumatic. Eyes: Extraocular muscles are intact. Pupils are equal, round and reactive to light and accommodation. Ears: No lesions. Nose appeared normal. Throat: No exudate or erythema. NECK: Supple. No JVD, no carotid bruit. No lymphadenopathy or thyromegaly. LUNGS: Diminished breath sounds. Clear to auscultation. Percussion note normal. Chest symmetrical. HEART: S1, S2, no S3. No murmur. No cyanosis or clubbing. No ascites. Pulses: Dorsalis pedis and posterior tibial pulses +1 to +2 bilaterally. ABDOMEN: Soft. Nontender. Bowel sounds active. No CVA tenderness. No mass felt. EXTREMITIES: No edema. Full range of motion of all extremities, equal. NEUROLOGIC: The patient is pleasantly confused, oriented to person only which is his baseline. No focal deficit. Cranial nerves II through XII are grossly intact. No headache, no double vision or headache. SKIN: Warm and dry. Intact. Turgor - normal. No obvious bruising. LYMPHATIC: No palpable lymph nodes/no lymphedema. MUSCULOSKELETAL: Normal joints with no swelling. Muscle tone is normal. White count 7.86, hemoglobin 11.6, hematocrit 34.5, platelets 184. Sodium 137, potassium 3.5, BUN 21, creatinine 1.4, glucose 149. AST 31, ALT 26. Urine shows 2+ blood otherwise normal. CT of the chest shows right upper lobe consolidation. Differential diagnosis to include pneumonia vs contusion, mild cardiomegaly, atelectasis. CT of the head shows no acute process. Chronic changes. CT of the C-spine no acute process such as degenerative disease. CT of the abdomen and pelvis nondisplaced fracture of the left rib. No acute abnormality in the abdomen. T-spine, lumbar spine normal with exception of chronic changes. ASSESSMENT: 1. STATUS POST FALL WITH CHEST TRAUMA 2. ACUTE PNEUMONIA 3. FEVER 4. DEHYDRATION 5. NONDISPLACED RIB FRACTURE PLAN: 1. We will admit. 2. Routine telemetry orders. 3. CBC, CMP daily. 4. Rocephin 1 gm IV daily. 5. Zithromax 500 mg p.o. daily times three days. 6. NS at 75 cc/hr. 7. Continue all home medications. 8. Regular diet. 9. Fall precautions. 10. Will follow closely. 11. The patient does not appear to have any other fractures other than possible fractured rib. He has no bruising noted. He does not complain of any pain as far as his fall. I do believe that the pneumonia was an acute finding and this is the cause of the fever. TIME SPENT: More than 70 minutes. [facility]
[2019-04-17] MEDS: XANAX PO SCH (20:55)
[2019-04-17] MEDS: ZOCOR PO SCH (20:55)
[2019-04-18] MEDS: DUONEB NEB SCH ×2 (04:43→11:03)
[2019-04-18] MEDS: LASIX TAB PO SCH (05:58)
[2019-04-18] MEDS: SYNTHROID PO SCH (05:58)
[2019-04-18] MEDS: TRADJENTA PO SCH (09:00)
[2019-04-18] MEDS: PROSCAR PO SCH (09:01)
[2019-04-18] MEDS: FLOMAX PO SCH (09:01)
[2019-04-18] MEDS: ZITHROMAX PO SCH (09:01)
[2019-04-18] MEDS: CORDARONE PO SCH (09:01)
[2019-04-18] MEDS: ELIQUIS PO SCH (09:02)
[2019-04-18] MEDS: AMARYL PO SCH (09:02)
[2019-04-18] MEDS: K-DUR PO SCH ×2 (09:02→12:20)
[2019-04-18] MEDS: ENTRESTO 24 MG-26 MG TABLET PO SCH (09:03)
[2019-04-18] MEDS: LOPRESSOR PO SCH (09:03)
--- NOTE | 2019-04-18 09:39 | CM.DICTOOL ---
ADMISSION: 04/14/19 16:35 DISCHARGE: 04/18/2019 DATE OF SERVICE: 04/18/19 FINAL DIAGNOSIS PNEUMONIA, IMPROVED RIB FRACTURE(LT. 11TH); S/P FALL 04/14 BACK PAIN D/T RIB FX. HYPERTENSION CONGESTIVE HEART FAILURE ATRIAL FIBRILLATION (ELIQUIS) DYSLIPIDEMIA DIABETES MELLITUS, TYPE 2 HYPOTHYROID CHRONIC KIDNEY DISEASE DEMENTIA ANXIETY CHOLELITHIASIS DIVERTICULOSIS HIATAL HERNIA, SMALL ENLARGED PROSTATE DEGENERATIVE DISC DISEASE, LUMBAR AND CERVICAL SPINE ENLARGED RIGHT THYROID LOBE CARDIAC ABLATION LAST VITALS Temp Pulse Resp BP Pulse Ox 98.7 F 74 20 162/88 H 96 04/18/19 05:05 04/18/19 05:05 04/18/19 05:05 04/18/19 05:05 04/18/19 05:05 TAKE THESE MEDICATIONS AT HOME Acetaminophen (Tylenol) 650 mg PO Q6H PRN PRN Reason: Pain Last Admin: 04/17/19 12:25 Dose: 650 mg Documented by: Alprazolam (Xanax) 0.25 mg PO BEDTIME [facility] Last Admin: 04/17/19 20:55 Dose: 0.25 mg Amiodarone HCl (Cordarone) 200 mg PO DAILY [facility] Last Admin: 04/18/19 09:01 Dose: 200 mg Apixaban (Eliquis) 5 mg PO BID [facility] Last Admin: 04/18/19 09:02 Dose: 5 mg Finasteride (Proscar) 5 mg PO DAILY [facility] Last Admin: 04/18/19 09:01 Dose: 5 mg Furosemide (Lasix Tab) 40 mg PO QDAC [facility] Last Admin: 04/18/19 05:58 Dose: 40 mg [facility]pir[facility] ([facility]l) [facility] [place] [facility] Admin: 04/18/19 09:02 Dose: 2 mg Levothyroxine Sodium (Synthroid) 50 mcg PO QDAC [facility] Last Admin: 04/18/19 05:58 Dose: 50 mcg Linagliptin (Tradjenta) 5 mg PO DAILY [facility] Last Admin: 04/18/19 09:00 Dose: 5 mg Metoprolol Tartrate (Lopressor) 100 mg PO BID [facility] Last Admin: 04/18/19 09:03 Dose: 100 mg Potassium Chloride (K-Dur) 10 meq PO DAILY Last Admin: 04/18/19 09:02 Dose: 40 meq Sacubitril/Valsartan (Entresto 49-51MG Tablet) 1 each PO BID [facility] Last Admin: 04/18/19 09:03 Dose: 1 each Simvastatin (Zocor) 20 mg PO BEDTIME [facility] Last Admin: 04/17/19 20:55 Dose: 20 mg Tamsulosin HCl (Flomax) 0.4 mg PO DAILY [facility] Last Admin: 04/18/19 09:01 Dose: 0.4 mg ALLERGIES No Known Allergies Allergy (Verified 04/14/19 14:14) DISCONTINUED MEDICATIONS NONE NEW PRESCRIPTIONS: TYLENOL EXTRA STRENGTH 650MG 1 TAB PO Q6H PRN PAIN ENTRESTO 49/51MG 1 TAB PO BID K-TAB 10MEQ 1 TAB PO QDAY OMNICEF 300MG 1 TAB PO BID X5 DAYS #10/NR SMOKING: FORMER SMOKER DISEASE SPECIFIC EDUCATION: PNEUMONIA FOLLOW-UPS MEDICATION MANAGEMENT [facility] DIET LAB REVIEW: 04/18/19 05:25 04/18/19 05:25 04/18/19 05:25: Sodium 141.2, Potassium 4.41, Chloride 110.5 H, Carbon Dioxide 26.0, Anion Gap 9.11, BUN 20.3 H, Creatinine 1.23 H, Estimated GFR (MDRD) 56.00, BUN/Creatinine Ratio 16.50, Glucose 138.0 H, Calcium 8.81, Total Bilirubin 0.80, AST 29.4, ALT 39.3, Alkaline Phosphatase 70.0, Total Protein 6.45, Albumin 3.48 L, Globulin 2.97, Albumin/Globulin Ratio 1.17 04/18/19 05:25: WBC 6.66, RBC 3.99 L, Hgb 11.3 L, Hct 34.6 L, MCV 86.7, MCH 28.3, MCHC 32.7, RDW Coeff of Daniel 13.7, Plt Count 231, Immature Gran % (Auto) 0.8, Neut % (Auto) 55.8, Lymph % (Auto) 31.4, [place] % (Auto) 8.1, Eos % (Auto) 3.6, Baso % (Auto) 0.3, Immature Gran # (Auto) 0.1, Neut # (Auto) 3.7, Lymph # (Auto) 2.1, [place] # (Auto) 0.5, Eos # (Auto) 0.2, Baso # (Auto) 0.0 PLAN: PLAN TO DISCHARGE TO HOME TODAY, 04/18/2019. DIET: AHA HEART HEALTHY DIET ACTIVITY: UP TOLERATED WITH STANDBY ASSISTANCE AND ROLLING WALKER. FOLLOW-UP: DR. LINO/CLAYTON BURDEN APRN Sunday04/25/19 @ 11:00AM CODE STATUS: FULL CODE MR. MORALES IS ALERT AND ORIENTED X3 THIS MORNING, WITH FREQUENT MOMENTS OF FORGETFULNESS. HE IS AGREEABLE TO THE PLAN TO DISCHARGE HOME TO [facility] TODAY. NOTIFIED DAUGHTER, PATRICIO FRANKS OF PLAN TO DISCHARGE HOME, SHE IS AGREEABLE TO PLAN AND WILL PROVIDE TRANSPORT. BREATH SOUNDS ARE CLEAR AND DIMINISHED, WITH NO NOTED SOA. SMALL AMT OF NONPITTING EDEMA PRESENT TO LOWER EXTREMITIES. ABD SOFT AND NONTENDER, BOWEL SOUNDS ACTIVE, LAST BM 04/15/19. SKIN IS DRY WITH SCATTERED BRUISING, SKIN TEAR PRESENT TO LEFT ELBOW. GOOD APPETITE, ADEQUATE HYDRATION STATUS. PT INTERMITTENTLY COMPLAINS OF BACK PAIN AND KNEE PAIN, BUT WILL FORGET ABOUT PAIN AND DENY THE PRESENCE OF PAIN INTERMITTENTLY. DUE TO HISTORY OF FALLS, NO NARCOTIC PAIN MEDICATIONS AT THIS TIME. WILL FIRST ATTEMPT TO CONTROL PAIN WITH EXTRA STRENGTH TYLENOL. FAMILY T O REPOT IF THIS DOES NOT CONTROL HIS SYMPTOMS. ABIMAEL LINO M.D. CLAYTON BURDEN APRN
[2019-04-18] MEDS ORDERED: ENTRESTO 24 MG-26 MG TABLET PO ONE (09:50)
--- NOTE | 2019-04-18 09:56 | PN ---
DATE OF SERVICE: 04/16/19 SUBJECTIVE: 88 year old white male hospitalized with fever of 102 in the emergency room has pneumonia. The patient has mild cough and low grade fever yesterday. He is being treated with IV antibiotics, Rocephin. The patient also had fallen at home and has fracture of rib. He is being given Dilaudid has needed but doesn't complain of much pain. The patient is pleasant confused and doesn't know why is in the hospital. Daughter is in the room. REVIEW OF SYSTEMS: CONSTITUTIONAL: No night sweats. No fatigue, malaise, lethargy. No fever or chills. HEENT: Eyes: No visual changes. No eye pain. No eye discharge. ENT: No runny nose. No epistaxis. No sinus pain. No sore throat. No odynophagia. No congestion. RESPIRATORY: Mild cough, no congestion. No hemoptysis. No shortness of breath. CARDIOVASCULAR: No angina symptoms. No CHF symptoms. No atypical chest pain for CAD. No palpitations. No PND. No orthopnea. GASTROINTESTINAL: No abdominal pain. No nausea or vomiting. No diarrhea or constipation. No hematemesis. No hematochezia.Appetite has improved. GENITOURINARY: No urgency. No frequency. No dysuria. No hematuria. No obstructive symptoms. No discharge. No pain. No significant abnormal bleeding. MUSCULOSKELETAL: No musculoskeletal pain; no joint swelling. NEUROLOGICAL: No headache. No neck pain. No syncope. No seizures. No dizziness. PSYCHIATRIC: Not anxious. No depression. No suicidal thoughts. No homicidal thoughts. SKIN: No rash. No lesions. No wounds. ENDOCRINE: No unexplained weight loss. No weight gain. HEMATOLOGIC/LYMPHATIC: No anemia. No purpura. No petechiae. No prolonged or excessive bleeding. No palpable lymph nodes. PHYSICAL EXAMINATION: VITAL SIGNS: Temperature 98.2, pulse 57, respiratory rate 18, blood pressure 170/90 and pulse ox 93%. HEENT: Head normocephalic, atraumatic. Eyes: Extraocular muscles are intact. Pupils are equal, round and reactive to light and accommodation. Ears: No lesions. Nose appeared normal. Throat: No exudate or erythema. NECK: Supple. No JVD, no carotid bruit. No lymphadenopathy or thyromegaly. LUNGS: Decreased breath sounds but clear to auscultation. Percussion note normal. Chest symmetrical. HEART: S1, S2, no S3. No murmurs. No cyanosis or clubbing. No ascites. Pulses: Dorsalis pedis and posterior tibial pulses +1 to +2 bilaterally. ABDOMEN: Soft. Nontender. Bowel sounds active. No CVA tenderness. No mass felt. EXTREMITIES: No edema. Full range of motion of all extremities, equal. NEUROLOGIC: No focal deficit. Cranial nerves II through XII are grossly intact. No headache, no double vision or headache. SKIN: Not dry. Intact. Turgor - normal. LYMPHATIC: No palpable lymph nodes/no lymphedema. MUSCULOSKELETAL: Normal joints with no swelling. Muscle tone is normal. LABS: Hypokalemia, creatinine 1.4, BUN 32, potassium 3.3. Hgb 11, hct 33 ASSESSMENT: 1. Pneumonia seems to be resolving, clinically. The patient is feeling a lot better. 2. Dementia 3. History of CVA 4. Rib fracture with history of fall 5. Hypokalemia PLAN: 1. The patient is going to be given Potassium supplements 2. Pneumonia is improving with Rocephin CONDITION: Stable. TIME SPENT: More than 30 minutes. Plan and coordination of the patient's care discussed in the presence of nurse. ERICA
--- NOTE | 2019-04-18 10:00 | PN ---
DATE OF SERVICE: 04/15/19 SUBJECTIVE: The patient was seen and examined this morning. The patient recognized me by name. He is not oriented to date and year. I asked him why he came to the emergency room and he couldn't tell me exactly what was the problem. I told him he had a fever and he didn't know about it. He had a fall but he didn't know about it. The patient's neurological status is normal. REVIEW OF SYSTEMS: CONSTITUTIONAL: No night sweats. No fatigue, malaise, lethargy. No fever or chills. HEENT: Eyes: No visual changes. No eye pain. No eye discharge. ENT: No runny nose. No epistaxis. No sinus pain. No sore throat. No odynophagia. No congestion. RESPIRATORY: No cough, no congestion. No hemoptysis. No shortness of breath. CARDIOVASCULAR: No angina symptoms. No CHF symptoms. No atypical chest pain for CAD. No palpitations. No PND. No orthopnea. GASTROINTESTINAL: No abdominal pain. No nausea or vomiting. No diarrhea or constipation. No hematemesis. No hematochezia. GENITOURINARY: No urgency. No frequency. No dysuria. No hematuria. No obstructive symptoms. No discharge. No pain. No significant abnormal bleeding. MUSCULOSKELETAL: No musculoskeletal pain; no joint swelling. NEUROLOGICAL: No headache. No neck pain. No syncope. No seizures. No dizziness. PSYCHIATRIC: Not anxious. No depression. No suicidal thoughts. No homicidal thoughts. SKIN: No rash. No lesions. No wounds. ENDOCRINE: No unexplained weight loss. No weight gain. HEMATOLOGIC/LYMPHATIC: No anemia. No purpura. No petechiae. No prolonged or excessive bleeding. No palpable lymph nodes. PHYSICAL EXAMINATION: GENERAL: The patient is afebrile HEENT: Head normocephalic, atraumatic. Eyes: Extraocular muscles are intact. Pupils are equal, round and reactive to light and accommodation. Ears: No lesions. Nose appeared normal. Throat: No exudate or erythema. NECK: Supple. No JVD, no carotid bruit. No lymphadenopathy or thyromegaly. LUNGS: Clear to auscultation. Percussion note normal. Chest symmetrical. HEART: S1, S2, no S3. No murmurs. No cyanosis or clubbing. No ascites. Pulses: Dorsalis pedis and posterior tibial pulses +1 to +2 bilaterally. ABDOMEN: Soft. Nontender. Bowel sounds active. No CVA tenderness. No mass felt. EXTREMITIES: No edema. Full range of motion of all extremities, equal. NEUROLOGIC: No focal deficit. Cranial nerves II through XII are grossly intact. No headache, no double vision or headache. SKIN: Not dry. Intact. Turgor - normal. LYMPHATIC: No palpable lymph nodes/no lymphedema. MUSCULOSKELETAL: Normal joints with no swelling. Muscle tone is normal. PLAN: 1. The patient is getting Rocephin for possibility of pneumonia CARDIOVASCULAR STATUS: Stable. TIME SPENT: More than 30 minutes. Plan and coordination of the patient's care discussed in the presence of nurse. ERICA
[2019-04-18 11:10] VITALS: BP 170/82; TEMP 98
--- NOTE | 2019-04-18 14:33 | PN ---
DATE OF SERVICE: 04/17/19 SUBJECTIVE: The patient was seen and examined today with Nurse Practitioner. The patient's pneumonia seems to be resolving. Blood pressure is systolic somewhat higher than usual, 170/88. We will follow the blood pressure. Rib fracture doesn't seem to both him. Oral intake is better. The patient is on Rocephin and Zithromax. Hypokalemia seems to have worsened. We will give him K-Tab 20meq QID. Today's potassium was 2.9. TIME SPENT: More than 30 minutes. Plan and coordination of the patient's care discussed in the presence of nurse. MTDD
--- NOTE | 2019-04-18 14:49 | DS ---
DATE OF SERVICE: 04/18/19 FINAL DIAGNOSIS : PNEUMONIA, IMPROVED RIB FRACTURE(LT. 11TH); S/P FALL 04/14 BACK PAIN D/T RIB FX. 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 LINO/CLAYTON BURDEN, MANAGER OF PURCHASING Sunday04/25/19 @ 11:00AM. CODE STATUS: FULL CODE TAKE THESE MEDICATIONS AT HOME: Acetaminophen (Tylenol) 650 mg PO Q6H PRN Alprazolam (Xanax) 0.25 mg PO BEDTIME ROCIO Amiodarone HCl (Cordarone) 200 mg PO DAILY [facility] Apixaban (Eliquis) 5 mg PO BID ROCIO Finasteride (Proscar) 5 mg PO DAILY ROC[facility] Furosemide (Lasix Tab) 40 mg PO QDAC ROCIO Glimepiride (Amaryl) 2 mg PO DAILYWM ROCIO Levothyroxine Sodium (Synthroid) 50 mcg PO QDAC ROCIO Linagliptin (Tradjenta) 5 mg PO DAILY ROCIO Metoprolol Tartrate (Lopressor) 100 mg PO BID ROCIO Potassium Chloride (K-Dur) 10 meq PO DAILY Sacubitril/Valsartan (Entresto 49-51MG Tablet) 1 each PO BID ROCIO Simvastatin (Zocor) 20 mg PO BEDTIME ROCIO Tamsulosin HCl (Flomax) 0.4 mg PO DAILY ROCIO ALLERGIES: No Known Allergies Allergy (Verified 04/14/19 14:14) DISCONTINUED MEDICATIONS NONE NEW PRESCRIPTIONS: TYLENOL EXTRA STRENGTH 650MG 1 TAB PO Q6H PRN PAIN ENTRESTO 49/51MG 1 TAB PO BID K-TAB 10MEQ 1 TAB PO QDAY OMNICEF 300MG 1 TAB PO BID X5 DAYS #10/NR SMOKING: FORMER SMOKER DISEASE SPECIFIC EDUCATION: PNEUMONIA FOLLOW-UPS MEDICATION MANAGEMENT AHA DIET DIET: AHA HEART HEALTHY DIET ACTIVITY: UP TOLERATED WITH STANDBY ASSISTANCE AND ROLLING WALKER. HOSPITAL COURSE: Holden was hospitalized with fall and the patient had rib fracture which doesn't seem to be bothering him at the time of discharge. He doesn't have any pain. He was noted to have pneumonia with fever of 102 on admission. He was treated with Zithromax and Rocephin. The patient is going to be discharged on Omnicef to be taken 5 days. His mental status has improved. He is more or less pleasantly confused. He is oriented to person. The patient lives in the assisted living. Cardiovascular status is stable. He was noted to have high blood pressure systolic. His Entresto was doubled at the time of discharge. CONDITION: Stable. TIME SPENT: More than 60 minutes. MTDD
--- NOTE | 2019-04-18 14:50 | PN ---
04/14/19: Level 5 04/15/19: Intermediate 04/16/19: Intermediate 04/17/19: Intermediate 04/18/19: D as in discharge MTDD
== END 2019-04-18 12:50 | disposition home or self-care (01) | DRG 195 ==
LOC: ED 13:51 → MEDSURG B 16:35
PROVIDERS: ADMIT Internal Medicine; ATTEND Internal Medicine
DX: E78.5 Hyperlipidemia, unspecified; Z79.01 Long term (current) use of anticoagulants; I48.91 Unspecified atrial fibrillation; R63.0 Anorexia; N18.9 Chronic kidney disease, unspecified; I50.9 Heart failure, unspecified; F41.9 Anxiety disorder, unspecified; R50.9 Fever, unspecified; R07.89 Other chest pain; R51 Headache; M54.9 Dorsalgia, unspecified; S22.32XD Fracture of one rib, left side, subsequent encounter for fracture with routine healing; E86.0 Dehydration; R05 Cough; J18.9 Pneumonia, unspecified organism; R53.81 Other malaise; E11.22 Type 2 diabetes mellitus with diabetic chronic kidney disease; E03.9 Hypothyroidism, unspecified; F03.90 Unspecified dementia, unspecified severity, without behavioral disturbance, psychotic disturbance, mood disturbance, and anxiety; I10 Essential (primary) hypertension; E87.6 Hypokalemia